=== PATIENT | male | born 1950 | race Caucasian/White ===

== ENCOUNTER 2025-04-17 02:13 | Observation (INO) | payer MEDICARE, SELFPAY ==
[2025-04-17] VITALS (8 sets, daily range): BP systolic 122–141; BP diastolic 78–87; PULSE 60–78; RESP 15–17; TEMP 36.7–37.1; O2SAT 96–100; BMI 27.3
--- NOTE | 2025-04-17 02:16 | ECG_ITS ---
APPROVED REPORT Exam: Resting ECG HR:64 bpm ECG Measurements Heart Rate 64 AXES TN 186 P 73 QRSd 90 QRS 55 QT 386 T 54 QTc 395 Conclusion SINUS RHYTHM NONSPECIFIC T-WAVE ABNORMALITY No STEMI Electronically signed by : MARCELINO KOHLER, 04/17/2025 03:56:33
--- NOTE | 2025-04-17 02:25 | CT_ITS ---
PROCEDURE INFORMATION: Exam: CT Head Without Contrast Exam date and time: 04/17/2025 3:09 AM Age: 74 years old Clinical indication: Syncope and collapse; Additional info: Syncope struck forehead TECHNIQUE: Imaging protocol: Computed tomography of the head without contrast. Radiation optimization: All CT scans at this facility use at least one of these dose optimization techniques: automated exposure control; mA and/or kV adjustment per patient size (includes targeted exams where dose is matched to clinical indication); or iterative reconstruction. COMPARISON: No relevant prior studies available. FINDINGS: Brain: There is diffuse prominence of the cerebral sulci, cisterns, and ventricles consistent with atrophy. No intra or extra-axial fluid collections are noted. No mass or mass effect is seen. Periventricular white matter hypoattenuation is seen consistent with chronic small vessel disease. Cerebral ventricles: No ventriculomegaly. Paranasal sinuses: Visualized sinuses are unremarkable. No fluid levels. Mastoid air cells: Visualized mastoid air cells are well aerated. Bones: Unremarkable. No acute fracture. Soft tissues: Unremarkable. IMPRESSION: No acute process noted.
--- NOTE | 2025-04-17 02:25 | CT_ITS ---
PROCEDURE INFORMATION: Exam: CT Cervical Spine Without Contrast Exam date and time: 04/17/2025 3:19 AM Age: 74 years old Clinical indication: Injury or trauma; Fall; Blunt trauma; Additional info: Syncope struck head TECHNIQUE: Imaging protocol: Computed tomography of the cervical spine without contrast. Radiation optimization: All CT scans at this facility use at least one of these dose optimization techniques: automated exposure control; mA and/or kV adjustment per patient size (includes targeted exams where dose is matched to clinical indication); or iterative reconstruction. COMPARISON: CT HEAD/BRAIN WO CON 04/17/2025 3:09 AM FINDINGS: Bones: No acute fracture. There is straightening of the spine. Severe degenerative disc disease noted at C3-C4, C5-C6 and C6-C7. There is diffuse mild severe facet arthropathy. No significant disc bulge or herniation. No severe spinal canal stenosis. There is prominent bony foraminal stenosis bilaterally C3-C4, on the right at C5-C6 and bilaterally at C6-C7. Lungs: Lung apices are normal. Soft tissues: Unremarkable. IMPRESSION: No acute cervical spine fracture.
--- NOTE | 2025-04-17 02:25 | CT_ITS ---
PROCEDURE INFORMATION: Exam: CT Lumbar Spine Without Contrast Exam date and time: 04/17/2025 3:19 AM Age: 74 years old Clinical indication: Injury or trauma; Fall; Blunt trauma (contusions or hematomas); Additional info: Syncope thoracolumbar ttp TECHNIQUE: Imaging protocol: Computed tomography of the lumbar spine without contrast. Radiation optimization: All CT scans at this facility use at least one of these dose optimization techniques: automated exposure control; mA and/or kV adjustment per patient size (includes targeted exams where dose is matched to clinical indication); or iterative reconstruction. COMPARISON: CT LUMBAR SPINE WO CON 04/17/2025 3:19 AM FINDINGS: Bones/joints: No acute fracture. Mild chronic degenerative changes without severe spinal stenosis. Soft tissues: Visualized paravertebral soft tissues demonstrate no acute abnormality. IMPRESSION: No acute lumbar spine fracture.
--- NOTE | 2025-04-17 02:25 | CT_ITS ---
PROCEDURE INFORMATION: Exam: CT Thoracic Spine Without Contrast Exam date and time: 04/17/2025 3:19 AM Age: 74 years old Clinical indication: Injury or trauma; Fall; Blunt trauma (contusions or hematomas); Additional info: Syncope thoracolumbar ttp TECHNIQUE: Imaging protocol: Computed tomography of the thoracic spine without contrast. Radiation optimization: All CT scans at this facility use at least one of these dose optimization techniques: automated exposure control; mA and/or kV adjustment per patient size (includes targeted exams where dose is matched to clinical indication); or iterative reconstruction. COMPARISON: 1. CT CERVICAL SPINE WO CON 04/17/2025 3:[address] LUMBAR SPINE WO CON 04/17/2025 3:19 AM FINDINGS: Bones/joints: No acute fracture. Mild chronic degenerative changes without severe spinal stenosis. Soft tissues: Visualized paravertebral soft tissues demonstrate no acute abnormality. Lymph nodes: Small calcified left hilar lymph nodes, suggestive of old granulomatous disease. Lungs: Small calcified granuloma in the left lower lobe. Visualized portions of the lungs demonstrate no acute abnormality. IMPRESSION: No acute findings.
--- NOTE | 2025-04-17 02:26 | CT_ITS ---
PROCEDURE INFORMATION: Exam: CTA Chest With Contrast Exam date and time: 04/17/2025 3:26 AM Age: 74 years old Clinical indication: Other: Unprovoked syncope TECHNIQUE: Imaging protocol: Computed tomographic angiography of the chest with contrast. Exam focused on the arteries. 3D rendering (Not supervised by radiologist): MIP and/or 3D reconstructed images were created by the technologist. Radiation optimization: All CT scans at this facility use at least one of these dose optimization techniques: automated exposure control; mA and/or kV adjustment per patient size (includes targeted exams where dose is matched to clinical indication); or iterative reconstruction. Contrast material: ISOUVE 370; Contrast volume: 70 ml; Contrast route: INTRAVENOUS (IV); COMPARISON: CT CERVICAL SPINE WO CON 04/17/2025 3:19 AM FINDINGS: Pulmonary arteries: Normal. No pulmonary emboli. Aorta: The ascending thoracic aorta is mildly dilated measuring 4.0 cm in diameter. Lungs: There is a calcified granuloma medial left lower lobe. No consolidation. No mass. Pleural spaces: Unremarkable. No pneumothorax. No pleural effusion. Heart: Unremarkable. No cardiomegaly. No pericardial effusion. Lymph nodes: There are calcified left hilar lymph nodes. Bones/joints: There are mild degenerative changes of the thoracic spine.. No acute fracture. Soft tissues: Unremarkable. IMPRESSION: 1. No acute findings. No pulmonary embolus. 2. Mildly dilated ascending thoracic aorta measuring 4.0 cm in diameter.
--- NOTE | 2025-04-17 02:27 | HMH.EDCP ---
Discharge Plan Disposition Patient Disposition: Admitted Condition: Good Clinical Impressions Clinical Impression: Chest pain, Syncope Print Language Print Language: Icelandic Discharge ED Provider: Lemuel Daniels General Chief Complaint: Chest Pain Stated Complaint: Sycopal Episode Time Seen by Provider: 04/17/25 02:24 History of Present Illness HPI narrative: 74-year-old male with a history of hyperlipidemia recently on Wegovy for the last 4 months presents to the ER for syncopal episode. Patient reports he was woken up from sleep by burning chest pain similar to heartburn but admits that it was worse than normal and somewhat different than his usual heartburn, he states he got up to go downstairs to get Tums which he took, but after he got back upstairs he stated I did not feel right and he then woke up on the floor. Patient reports he did not feel lightheaded, no tunnel vision, he had no warning or preceding symptoms that he was going to pass out. He reports he does not know what he may have struck his head on but does not take any blood thinners. He does state he has a history of back surgery and his usual low mid back pain is flared up compared to normal. He is not having any new numbness, tingling, or weakness. No current headache or dizziness. He states the heartburn type sensation that he was having earlier is now absent. He reports no history of palpitations, he states he is not having any fevers, chills, no current chest pain, no difficulty breathing, no nausea, vomiting, or diarrhea, no other complaints or concerns. Related Data Allergies Allergy/AdvReac Type Severity Reaction Status Date / Time No Known Allergies Allergy Verified 04/17/25 02:35 [facility] Disclaimer: The information contained in this section may have been updated after the patient was seen, as this information can be updated by other users. Surgical History (Updated 04/17/25 @ 02:35 by Elizabeth Spence RN) Previous back surgery Social History Smoking Status: Never smoker alcohol intake: never current occupational status: other Travel in the last 8 weeks?: None ROS Obtained: Yes Systems reviewed as appropriate & no additional complaints except as documented per HPI Physical Exam General General appearance: alert and in no apparent distress Head Head exam: normocephalic and other (Small superficial laceration above the right eyebrow is not gaping, hemostatic.) Eye Eye exam: Present PERRL and EOMI ENT ENT exam: Present mucous membranes moist Neck Neck exam: Present normal inspection and full ROM; Absent tenderness Chest Chest inspection: Present symmetric chest wall rise; Absent tenderness Respiratory Respiratory exam: Present normal lung sounds bilaterally; Absent respiratory distress, wheezes or stridor Cardiovascular Cardiovascular exam: Present regular rate and normal rhythm Abdominal Exam Abdominal exam: Present soft; Absent distention, tenderness, guarding or rebound Extremities Exam Extremities exam: Present full ROM; Absent tenderness, joint swelling or calf tenderness Back Exam Back exam: Present tenderness (Thoracolumbar junction midline with no deformity or step-off); Absent CVA tenderness (R) or CVA tenderness (L) Neurological Exam Neurological exam: Present alert and oriented X3; Absent motor sensory deficit Psychiatric Psychiatric exam: Present normal affect and normal mood Skin Skin exam: Present warm and dry HEART Score HEART Score HEART Score assessment performed?: Yes History (anamnesis): Slightly suspicious ECG: Non-specific disturbance Age: >65 years Risk factors: 1-2 risk factors Troponin: </= normal limit HEART Score: 4 Critical Care Critical Care Time Critical Care Time: No Medical Decision Making Dennys Inquiry Pt receiving controlled substance: No Vital Signs Vital Signs: 04/17/25 02:16 04/17/25 02:22 04/17/25 02:30 Temperature 98.7 F Temperature Source Oral Pulse Rate 65 78 Pulse Rate [Left] 75 Respiratory Rate 16 17 Blood Pressure 122/78 140/79 Blood Pressure [Right Arm] 122/78 Blood Pressure Mean [Right Arm] 92 Blood Pressure Source [Right Arm] Automatic Cuff Blood Pressure Position [Right Arm] Sitting 02 Sat by Pulse Oximetry 96 96 98 Oxygen Delivery Method Room Air Room Air 04/17/25 04:09 Temperature Temperature Source Pulse Rate 75 Pulse Rate [Left] Respiratory Rate 17 Blood Pressure 141/87 H Blood Pressure [Right Arm] Blood Pressure Mean [Right Arm] Blood Pressure Source [Right Arm] Blood Pressure Position [Right Arm] 02 Sat by Pulse Oximetry 96 Oxygen Delivery Method Room Air Lab Data Labs: Lab Results 04/17/25 01:37: WBC 6.6, RBC 4.31 L, Hgb 13.4 L, Hct 39.0 L, MCV 90.5, MCH 31.1, MCHC 34.4, RDW 13.8, Plt Count 207, MPV 10.8 H, Neut % (Auto) 59.8, Lymph % (Auto) 29.9, [place] % (Auto) 7.5, Eos % (Auto) 2.3, Baso % (Auto) 0.3, Neut # (Auto) 3.9, Lymph # (Auto) 2.0, [place] # (Auto) 0.5, Eos # (Auto) 0.2, Baso # (Auto) 0.0, PT 10.2, INR 0.91, Sodium 142, Potassium 3.1 L, Chloride 103, Carbon Dioxide 30, Anion Gap 12.1, BUN 15, Creatinine 1.00, Estimated Creat Clear 91, Estimated GFR 73, Est GFR ( Amer) 89, Glucose 105 H, Calcium 8.9, Total Bilirubin 0.6, AST 35, ALT 16, Alkaline Phosphatase 59, Troponin I < 0.01, NT-Pro-B Natriuret Pep 59.7, Total Protein 6.8, Albumin 4.2, Globulin 2.6, Albumin/Globulin Ratio 1.6 04/17/25 03:43: VBG pH 7.35, VBG pCO2 52.2 H, VBG pO2 43.2 H, VBG HCO3 28.0, VBG Total CO2 29.6 H, VBG O2 Saturation 78.7 H, VBG Base Excess 2.3, VBG Lactic Acid 1.3 04/17/25 01:37 04/17/25 01:37 Response Orders (Tests/Meds): ED MEDICATIONS Generic Name Dose Route Start Last Admin Trade Name Freq PRN Reason Stop Dose Admin Nitroglycerin 0.4 mg 04/17/25 02:25 Nitroglycerin 0.4mg Sl Tablet SL 04/18/25 02:25 Q5MINP PRN Chest Pain Sodium Chloride 10 ml 04/17/25 03:35 04/17/25 03:36 Sodium Chloride 0.9% 10ml Syr (Rad Only) IV 05/17/25 03:34 10 ml NEEDED PRN Administration Maintain IV Site Discontinued Medications Generic Name Dose Route Start Last Admin Trade Name Freq PRN Reason Stop Dose Admin Aspirin 324 mg 04/17/25 02:25 04/17/25 02:39 Aspirin 81mg Chewable Tablet PO 04/17/25 02:26 324 mg ONCE ONE Administration Iopamidol 70 ml 04/17/25 03:35 04/17/25 03:36 Iopamidol-370 (76%);100ml Bottle IV 04/17/25 03:36 70 ml ONCE ONE Administration Sodium Chloride 40 ml 04/17/25 03:35 04/17/25 03:35 0.9 % Sodium Chloride 50 Ml Vial IV 04/17/25 03:36 40 ml ONCE ONE Administration ORDERS Category Date Time Status CT angio chest PE protocol Stat Cat Scan 04/17/25 02:[address] cervical spine wo con Stat Cat Scan 04/17/25 02:[address] head/brain wo con Stat Cat Scan 04/17/25 02:[address] lumbar spine wo con Stat Cat Scan 04/17/25 02:[address] thoracic spine wo con Stat Cat Scan 04/17/25 02:25 Completed Complete Blood Count Auto Diff Stat Lab 04/17/25 01:37 Completed Comprehensive Metabolic Panel Stat Lab 04/17/25 01:37 Completed NT Pro Brain Natriuretic Pep. Stat Lab 04/17/25 01:37 Completed Prothrombin Time INR Stat Lab 04/17/25 01:37 Completed Troponin I Q3H Lab 04/17/25 05:30 Ordered Troponin I Q3H Lab 04/17/25 08:30 Ordered Troponin I Stat Lab 04/17/25 01:37 Completed VBG [Venous Blood Gas] Stat RT 04/17/25 03:43 Completed MDM Narrative Medical Decision Narrative: In summary, this 74-year-old male with comorbidities described in the HPI presents to the emergency department today with syncope in the setting of preceding chest pain. On initial evaluation patient is hemodynamically stable, afebrile, GCS 15, no neurologic deficits, patient has small superficial laceration above the right eyebrow which is hemostatic, not gaping, does not require any repair. No tenderness of the neck, normal range of motion, no neurologic deficits, patient has thoracolumbar junction discomfort with palpation in the midline, reports he has previous back surgery in this area. No new numbness, tingling, or weakness in the lower extremities. No saddle anesthesia, bowel or bladder incontinence. Cardiopulmonary exam benign, abdominal exam benign. Differential diagnosis includes but is not limited to ACS, PE, arrhythmia, electrolyte abnormality, intracranial bleed, spine injury, among others. Based on these concerns, I ordered hematologic and serum labs, cardiac workup, CT imaging including PE scan of the chest. I am concerned that this patient sounds like he had relatively unprovoked syncope as he just suddenly woke up on the floor with no preceding symptoms aside from chest pain which is increasingly concerning. ECG personally interpreted demonstrates sinus rhythm, rate 64, normal NC and QTc, no STEMI. Patient received aspirin for treatment. Labs personally reviewed demonstrate no leukocytosis, mild anemia is nonactionable at this time, normal platelets, PT/INR normal, CMP with trace hypokalemia being repleted orally, initial troponin undetectably low less than 0.01, serial troponins pending. CT head personally interpreted does not demonstrate acute intracranial abnormality such as bleed, mass, or midline shift, see radiology read for final interpretation. CTA PE personally interpreted does not demonstrate acute intrathoracic abnormality, no large PE, see radiology read for final interpretation. I also personally interpreted CTs of the spine and do not appreciate acute injury, see radiology reads for full interpretations. On reassessment patient remains hemodynamically stable, well-appearing. At this time I believe he should be admitted to the hospital for further evaluation of chest pain and otherwise unprovoked syncope. Patient is agreeable to this as is his family at bedside. I discussed this case with the hospitalist including his results so far, reassuring workup but his concerning story leading up to his syncopal event. Patient was graciously accepted for admission and admitted in stable condition.
[2025-04-17] MEDS: ASPIRIN 81MG CHEWABLE TABLET 324 MG PO (02:39)
--- NOTE | 2025-04-17 02:44 | PC.NURSE ---
RT notified of VBG in lab
[2025-04-17 02:45] LABS: Hematocrit 39.0 % (42.0-52.0); Hemoglobin 13.4 g/dL (14.1-18.0); Immature Granulocytes % 0.2 %; Mean Corpuscular HGB Conc 34.4 g/dL (31.8-35.4); Mean Corpuscular Hemoglobin 31.1 pg (27.0-31.2); Mean Corpuscular Volume 90.5 fl (80-94); Nucleated Red Blood Cells % 0 %; Platelet Count 207 K/mm3 (142-424); Red Blood Count 4.31 M/mm3 (4.60-6.20); Red Cell Distribution Width-SD 45.9 fL; White Blood Count 6.6 K/mm3 (4.8-10.8)
[2025-04-17 02:48] LABS: Albumin Level 4.2 g/dl (3.5-5.0); Chloride 103 mmol/L (98-107); Potassium 3.1 mmoL/L (3.5-5.1); Sodium 142 mmol/L (136-145)
[2025-04-17 02:51] LABS: Alanine Aminotransferase 16 U/L (12-78); Albumin/Globulin Ratio 1.6 (1.1-1.8); Alkaline Phosphatase 59 U/L (38-126); Anion Gap 12.1 mEq/L (5-15); Aspartate Amino Transferase 35 U/L (17-59); Bilirubin,Total 0.6 mg/dl (0.2-1.3); Blood Urea Nitrogen 15 mg/dl (9-20); Calcium 8.9 mg/dl (8.4-10.2); Carbon Dioxide 30 mmol/L (22.0-30.0); Creatinine Clearance Estimated 91 mL/min (50-200); Creatinine,Serum 1.00 mg/dl (0.66-1.25); Estimated Glomerular Filt Rate 73 ml/min (>60); GFR (African American) 89 ML/MIN (>60); Globulin 2.6 g/dL (1.3-3.2); Glucose 105 mg/dl (74-100); INR 0.91 (0.9-1.1); Prothrombin Time 10.2 seconds (10.1-12.5); Total Protein,Serum 6.8 g/dl (6.3-8.2)
[2025-04-17 03:00] LABS: NT Pro Brain Natriuretic Pep. 59.7 pg/mL (0-125)
[2025-04-17 03:04] LABS: Troponin I < 0.01 ng/ml (0.00-0.034)
[2025-04-17] MEDS: 0.9 % SODIUM CHLORIDE 50 ML VIAL 40 ML IV (03:35)
[2025-04-17] MEDS: SODIUM CHLORIDE 0.9% 10ML SYR (RAD ONLY) 10 ML IV (03:36)
[2025-04-17] MEDS: IOPAMIDOL-370 (76%);100ML BOTTLE 70 ML IV (03:36)
[2025-04-17 03:55] LABS: Lactate Venous 1.3 mmol/L (0.4-2.0); VBG HCO3 28.0 mmol/L (23-30); VBG PCO2 52.2 mmol/L (35-51); VBG PH 7.35 mmol/L (7.31-7.41); VBG PO2 43.2 mmol/L (28-40)
[2025-04-17] MEDS: POTASSIUM CHLORIDE 20MEQ TAB 40 MEQ PO (04:15)
--- NOTE | 2025-04-17 04:18 | P.HP_ITS ---
History of Present Illness *Admission Date: 04/17/25 *Reason for visit:: syncope *History of present illness: Patient is a 74-year-old male with past medical history of hyperlipidemia who presents to the hospital due to an episode of syncope. According to the patient his syncope was unprovoked, it was not accompanied by lightheadedness, he denied chest pain shortness of breath nausea vomiting diarrhea constipation dysuria fever/chills at time of my evaluation. According to the patient he has been recently started on Wegovy for the past 4 months, he denies previous similar episodes of syncope. [facility] Disclaimer: The information contained in this section may have been updated after the patient was seen, as this information can be updated by other users. Surgical History Previous back surgery Social History (Updated 04/17/25 @ 05:59 by Marilin Funes RN) Smoking Status: Current every day smoker alcohol intake: never current occupational status: other Travel in the last 8 weeks?: None Contact w/someone who lives/traveled outside [place] past 30 days?: No Exposure to someone with infectious disease in past 14 days?: No Review of Systems Review of Systems Review of systems:: pertinent systems reviewed and negative unless documented below Meds Home Medications and Allergies Home Medications ?Medication ?Instructions ?Recorded ?Confirmed ?Type rosuvastatin 20 mg tablet 20 mg PO DAILY 04/17/2503/30 History semaglutide (weight loss) 1.7 1.7 mg SQ WEEKLY 5 04/17/25 History mg/0.75 mL subcutaneous pen injector (Wegovy) New Prescriptions to Start Prescriptions: Allergies Allergy/AdvReac Type Severity Reaction Status Date / Time No Known Allergies Allergy Verified 04/17/25 02:35 Exam Data for Last 24 hours Vital signs and Labs for Last 24 Hours: Temp Pulse Resp BP Pulse Ox O2 Del Method 98.7 F 75 17 141/87 H 96 Room Air 04/17/25 02:22 04/17/25 04:09 04/17/25 04:09 04/17/25 04:09 04/17/25 04:09 04/17/25 04:09 Laboratory Results - last 24 hr 04/17/25 01:37: WBC 6.6, RBC 4.31 L, Hgb 13.4 L, Hct 39.0 L, MCV 90.5, MCH 31.1, MCHC 34.4, RDW 13.8, Plt Count 207, MPV 10.8 H, Neut % (Auto) 59.8, Lymph % (Auto) 29.9, [place] % (Auto) 7.5, Eos % (Auto) 2.3, Baso % (Auto) 0.3, Neut # (Auto) 3.9, Lymph # (Auto) 2.0, [place] # (Auto) 0.5, Eos # (Auto) 0.2, Baso # (Auto) 0.0, PT 10.2, INR 0.91, Sodium 142, Potassium 3.1 L, Chloride 103, Carbon Dioxide 30, Anion Gap 12.1, BUN 15, Creatinine 1.00, Estimated Creat Clear 91, Estimated GFR 73, Est GFR ( Amer) 89, Glucose 105 H, Calcium 8.9, Total Bilirubin 0.6, AST 35, ALT 16, Alkaline Phosphatase 59, Troponin I < 0.01, NT-Pro-B Natriuret Pep 59.7, Total Protein 6.8, Albumin 4.2, Globulin 2.6, Albumin/Globulin Ratio 1.6 04/17/25 03:43: VBG pH 7.35, VBG pCO2 52.2 H, VBG pO2 43.2 H, VBG HCO3 28.0, VBG Total CO2 29.6 H, VBG O2 Saturation 78.7 H, VBG Base Excess 2.3, VBG Lactic Acid 1.3 I & O for Last 24 hours: Intake & Output 04/14/25 04/15/25 04/16/25 04/17/25 23:59 23:59 23:59 23:59 Weight 96.615 kg Constitutional Constitutional: no acute distress *Routine HEENT Exam Head: Present normocephalic Eye: Present EOMI and PERRL ENT: Present mucous membranes moist *Routine Neck Exam Neck: Present supple; Absent lymphadenopathy *Routine Respiratory Exam Respiratory: Present CTA bilaterally *Routine Cardiovascular Exam Cardiovascular: Present RRR *Routine Abdominal Exam Abdominal: Present soft and normoactive bowel sounds; Absent tenderness *Routine Rectal Exam Rectal:: deferred *Routine Genitalia Exam Genitalia:: deferred *Routine Extremities Exam Extremities: Absent cyanosis, clubbing or edema *Routine Skin Exam Skin: Present warm; Absent rash *Routine Neurological Exam Neurological: Present alert and oriented X3 Assessment and Plan *Assessment and plan (1) Syncope: Status: Acute Category: Medical Code(s): R55 - Syncope and collapse (2) Hypokalemia: Status: Acute Category: Medical Code(s): E87.6 - Hypokalemia Plan Patient is a 74-year-old male with past medical history of hyperlipidemia who presents to the hospital due to an episode of syncope. According to the patient his syncope was unprovoked, it was not accompanied by lightheadedness, he denied chest pain shortness of breath nausea vomiting diarrhea constipation dysuria fever/chills at time of my evaluation. According to the patient he has been recently started on Wegovy for the past 4 months, he denies previous similar episodes of syncope. 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
[2025-04-17 07:11] LABS: Troponin I < 0.01 ng/ml (0.00-0.034)
[2025-04-17 07:21] LABS: Hematocrit 38.4 % (42.0-52.0); Hemoglobin 12.7 g/dL (14.1-18.0); Immature Granulocytes % 0.4 %; Mean Corpuscular HGB Conc 33.1 g/dL (31.8-35.4); Mean Corpuscular Hemoglobin 30.2 pg (27.0-31.2); Mean Corpuscular Volume 91.2 fl (80-94); Nucleated Red Blood Cells % 0 %; Platelet Count 203 K/mm3 (142-424); Red Blood Count 4.21 M/mm3 (4.60-6.20); Red Cell Distribution Width-SD 46.4 fL; White Blood Count 10.3 K/mm3 (4.8-10.8)
[2025-04-17 08:11] LABS: Chloride 104 mmol/L (98-107); Potassium 3.9 mmoL/L (3.5-5.1); Sodium 141 mmol/L (136-145)
[2025-04-17 08:14] LABS: Anion Gap 12.9 mEq/L (5-15); Blood Urea Nitrogen 14 mg/dl (9-20); Calcium 8.9 mg/dl (8.4-10.2); Carbon Dioxide 28 mmol/L (22.0-30.0); Creatinine Clearance Estimated 91 mL/min (50-200); Creatinine,Serum 0.90 mg/dl (0.66-1.25); Estimated Glomerular Filt Rate 83 ml/min (>60); GFR (African American) 100 ML/MIN (>60); Glucose 98 mg/dl (74-100)
--- NOTE | 2025-04-17 08:28 | PC.NURSE ---
Pt. is alert and orientated x 4. Pt. is on room air. Pt. got up in the night and had a syncopal episde in the bathroom. Pt's found him on the floor. after hearing a loud banc. Pt. was diaphoretic and had some chest pressure . the Chest pressure has gone away. Pt. c/o low back pain. NO swelling or bruising noted to site that is sore, Pt. resting quietly with no c/o's Personal items and call davidson in reach. bed in low and locked position. safety measures in place.
[2025-04-17 08:33] LABS: Troponin I < 0.01 ng/ml (0.00-0.034)
--- NOTE | 2025-04-17 09:27 | HMH.PHAINT1 ---
Pharmacy Intervention Comments: MEDICATION RECONCILIATION COMPLETED ON PATIENT USING EXTERNAL FILL HISTORY FROM PHARMACY. -LISSETTE STALEY, JELENAD
--- NOTE | 2025-04-17 11:21 | EXP.DC.SUM ---
General Admission date:: 04/17/25 Discharge date: 04/17/25 HPI HPI HPI: Patient is a 74-year-old male with past medical history of hyperlipidemia who presents to the hospital due to an episode of syncope. According to the patient his syncope was unprovoked, it was not accompanied by lightheadedness, he denied chest pain shortness of breath nausea vomiting diarrhea constipation dysuria fever/chills at time of my evaluation. According to the patient he has been recently started on Wegovy for the past 4 months, he denies previous similar episodes of syncope. Hospital Course Hospital Course Hospital Course: Mr. Ba is a 74-year-old male with history of hyperlipidemia who was started on a GLP-1 within the past 4 to 6 months for weight loss and hypertension. He successfully lost over 20 pounds. Presented to the ER however after an episode of syncope. According to the patient his syncope was unprovoked. He had some word finding difficulty after his episode. Denied chest pain, nausea, vomiting or shortness of breath with the episode. On arrival to the ER, workup was relatively benign with normal labs except for potassium of 3.1. CT imaging did not show any acute abnormalities such as large vessel occlusion or ischemic changes. EKG reviewed and shows sinus rhythm. No ST elevations or depressions. Serial troponins x 3 were less than 0.01. By morning, patient feeling better with no further symptoms. Feels back to his baseline. Has no residual deficits. No focal neurologic deficits on exam. No word finding difficulty by morning. Family requesting MRI. Unfortunately we are able to perform MRI on the weekends. In light of patient's normal neuroexam, stable vitals, resolution of hypokalemia, and unremarkable CTs of head along with CT PE negative for PE, at this time I have low suspicion for stroke or [place]. Episode most consistent with vasovagal event. I do think the patient would benefit from an echo and stress test. Would also benefit from outpatient MRI. Discussed deferring these to his PCP or following with cardiology. Informed patient he can walk-in to cardiology clinic on Saturday morning and they will initiate further workup. After shared decision making with family and patient, decision made to discharge home. Counseled on symptoms necessitating reevaluation and urged to return the ER if he has another syncopal event, has focal neurologic deficits, chest pain. Only abnormality noted on imaging was mild dilation of the ascending thoracic aorta. He was informed of these results. Would benefit from serial monitoring and repeat imaging in 6 to 12 months to monitor stability. CTA chest performed in the emergency department-negative for PE, did show mildly dilated ascending thoracic aorta, patient was informed of the results; ascending aorta measuring 4.0 cm Encourage patient to hold his Wegovy. At this time I clinical suspicion is his weight loss has led to improvement in blood pressure control and decreased fluid intake leading to vasovagal syncope. Exam Data for Last 24 hours Vital signs and Labs for Last 24 Hours: Temp Pulse Resp BP Pulse Ox O2 Del Method 98.1 F 78 16 124/81 100 Room Air 04/17/25 08:00 04/17/25 08:00 04/17/25 08:00 04/17/25 08:00 04/17/25 08:00 04/17/25 10:39 Laboratory Results - last 24 hr 04/17/25 01:37: WBC 6.6, RBC 4.31 L, Hgb 13.4 L, Hct 39.0 L, MCV 90.5, MCH 31.1, MCHC 34.4, RDW 13.8, Plt Count 207, MPV 10.8 H, Neut % (Auto) 59.8, Lymph % (Auto) 29.9, Whitfield % (Auto) 7.5, Eos % (Auto) 2.3, Baso % (Auto) 0.3, Neut # (Auto) 3.9, Lymph # (Auto) 2.0, Whitfield # (Auto) 0.5, Eos # (Auto) 0.2, Baso # (Auto) 0.0, PT 10.2, INR 0.91, Sodium 142, Potassium 3.1 L, Chloride 103, Carbon Dioxide 30, Anion Gap 12.1, BUN 15, Creatinine 1.00, Estimated Creat Clear 91, Estimated GFR 73, Est GFR ( Amer) 89, Glucose 105 H, Calcium 8.9, Total Bilirubin 0.6, AST 35, ALT 16, Alkaline Phosphatase 59, Troponin I < 0.01, NT-Pro-B Natriuret Pep 59.7, Total Protein 6.8, Albumin 4.2, Globulin 2.6, Albumin/Globulin Ratio 1.6 04/17/25 03:43: VBG pH 7.35, VBG pCO2 52.2 H, VBG pO2 43.2 H, VBG HCO3 28.0, VBG Total CO2 29.6 H, VBG O2 Saturation 78.7 H, VBG Base Excess 2.3, VBG Lactic Acid 1.3 04/17/25 04:30: Troponin I < 0.01 04/17/25 07:15: WBC 10.3 D, RBC 4.21 L, Hgb 12.7 L, Hct 38.4 L, MCV 91.2, MCH 30.2, MCHC 33.1, RDW 13.8, Plt Count 203, MPV 11.0 H, Neut % (Auto) 82.0 H, Lymph % (Auto) 9.6 L, Whitfield % (Auto) 6.9, Eos % (Auto) 0.7, Baso % (Auto) 0.4, Neut # (Auto) 8.5 H, Lymph # (Auto) 1.0, Whitfield # (Auto) 0.7, Eos # (Auto) 0.1, Baso # (Auto) 0.0, Sodium 141, Potassium 3.9 D, Chloride 104, Carbon Dioxide 28, Anion Gap 12.9, BUN 14, Creatinine 0.90, Estimated Creat Clear 91, Estimated GFR 83, Est GFR ( Amer) 100, Glucose 98, Calcium 8.9, Troponin I < 0.01 I & O for Last 24 hours: Intake & Output 04/14/25 04/15/25 04/16/25 04/17/25 23:59 23:59 23:59 23:59 Intake Total 360 / 360 Balance 360 / 360 Weight 96.615 kg Constitutional Constitutional: no acute distress, average body habitus and cooperative *Routine HEENT Exam Head: Present normocephalic Eye: Present EOMI and PERRL ENT: Present mucous membranes moist *Routine Neck Exam Neck: Absent full ROM or lymphadenopathy Comments: Neck stiff chronically, has his baseline level of mobility Routine Chest/Breast/Axilla Exam Chest wall: Absent tenderness *Routine Respiratory Exam Respiratory: Present CTA bilaterally; Absent rhonchi, wheezes or crackles *Routine Cardiovascular Exam Cardiovascular: Present RRR *Routine Abdominal Exam Abdominal: Present soft and normoactive bowel sounds; Absent tenderness *Routine Rectal Exam Patient deferred: visual exam *Routine Exam Patient deferred: penile exam *Routine Extremities Exam Extremities: Present full ROM; Absent cyanosis, clubbing or edema Routine Back/Spine/Pelvis Exam Back/Spine: Absent full ROM (Stiff, tender in lumbar region) *Routine Skin Exam Skin: Present intact and warm; Absent rash *Routine Neurological Exam Neurological: Present alert, oriented X3, CN II-XII intact, normal reflexes, moving all extremities, vision grossly intact and normal speech; Absent sensory deficit, motor deficit, altered mental status, abnormal gait, hemineglect, facial asymmetry or tremors Results Data Completed and Pending Labs on day of discharge: Labs from last 24 hours 04/17/25 04/17/25 04/17/25 07:15 04:30 03:43 WBC 10.3 D RBC 4.21 L Hgb 12.7 L Hct 38.4 L MCV 91.2 MCH 30.2 MCHC 33.1 RDW 13.8 Plt Count 203 MPV 11.0 H Neut % (Auto) 82.0 H Lymph % (Auto) 9.6 L Whitfield % (Auto) 6.9 Eos % (Auto) 0.7 Baso % (Auto) 0.4 Neut # (Auto) 8.5 H Lymph # (Auto) 1.0 Whitfield # (Auto) 0.7 Eos # (Auto) 0.1 Baso # (Auto) 0.0 PT INR VBG pH 7.35 VBG pCO2 52.2 H VBG pO2 43.2 H VBG HCO3 28.0 VBG Total CO2 29.6 H VBG O2 Saturation 78.7 H VBG Base Excess 2.3 VBG Lactic Acid 1.3 Sodium 141 Potassium 3.9 D Chloride 104 Carbon Dioxide 28 Anion Gap 12.9 BUN 14 Creatinine 0.90 Estimated Creat Clear 91 Estimated GFR 83 Est GFR ( Amer) 100 Glucose 98 Calcium 8.9 Total Bilirubin AST ALT Alkaline Phosphatase Troponin I < 0.01 < 0.01 NT-Pro-B Natriuret Pep Total Protein Albumin Globulin Albumin/Globulin Ratio 04/17/25 01:37 WBC 6.6 RBC 4.31 L Hgb 13.4 L Hct 39.0 L MCV 90.5 MCH 31.1 MCHC 34.4 RDW 13.8 Plt Count 207 MPV 10.8 H Neut % (Auto) 59.8 Lymph % (Auto) 29.9 Whitfield % (Auto) 7.5 Eos % (Auto) 2.3 Baso % (Auto) 0.3 Neut # (Auto) 3.9 Lymph # (Auto) 2.0 Whitfield # (Auto) 0.5 Eos # (Auto) 0.2 Baso # (Auto) 0.0 PT 10.2 INR 0.91 VBG pH VBG pCO2 VBG pO2 VBG HCO3 VBG Total CO2 VBG O2 Saturation VBG Base Excess VBG Lactic Acid Sodium 142 Potassium 3.1 L Chloride 103 Carbon Dioxide 30 Anion Gap 12.1 BUN 15 Creatinine 1.00 Estimated Creat Clear 91 Estimated GFR 73 Est GFR ( Amer) 89 Glucose 105 H Calcium 8.9 Total Bilirubin 0.6 AST 35 ALT 16 Alkaline Phosphatase 59 Troponin I < 0.01 NT-Pro-B Natriuret Pep 59.7 Total Protein 6.8 Albumin 4.2 Globulin 2.6 Albumin/Globulin Ratio 1.6 DS: Diagnosis Discharge Diagnosis (1) Syncope: Status: Acute Code(s): R55 - Syncope and collapse (2) Hypokalemia: Status: Acute Code(s): E87.6 - Hypokalemia (3) Ascending aorta dilation: Status: Acute Code(s): I77.810 - Thoracic aortic ectasia (4) HLD (hyperlipidemia): Status: Chronic Code(s): E78.5 - Hyperlipidemia, unspecified Meds Home Medications and Allergies Home Medications ?Medication ?Instructions ?Recorded ?Confirmed ?Type papaverine 150 mg-phentolamin 5 0 ml intra-cavernosal DIRECTED 04/17/25 04/17/25 History mg-alprost 50 mcg intracavernosal soln rosuvastatin 20 mg tablet 20 mg PO DAILY 04/17/25 04/17/25 History semaglutide (weight loss) 1.7 1.7 mg SQ WEEKLY 04/17/25 04/17/25 History mg/0.75 mL subcutaneous pen injector (Wegovy) Held on 04/17/25. Instructions: Hold until follow-up with PCP and discussion about continuing versus dose adjustment New Prescriptions to Start Prescriptions: Allergies Allergy/AdvReac Type Severity Reaction Status Date / Time No Known Allergies Allergy Verified 04/17/25 02:35 Discharge Plan Disposition Patient Disposition: Home, Self-Care Condition: Good Follow up Plan Follow up with: Allen Mccord MD [Primary Care Provider, Medical] - See instructions Referral Note: Call office for follow up appointment Gabe Anderson MD [Staff Physician, Cardiology] - Enter time for follow up Referral Note: Office will call for follow up appointment Prescriptions/Medication Reconciliation: Continued rosuvastatin 20 mg tablet 20 mg PO DAILY [id number] 150 mg-5 mg- 50 mcg Recon Soln 0 ml INTRA-CAVERNOSAL DIRECTED Held Wegovy 1.7 mg/0.75 mL pen injector 1.7 mg SQ WEEKLY Hold Instructions: Hold until follow-up with PCP and discussion about continuing versus dose adjustment Problem Reconciliation Problems Reviewed?: Yes Patient Discharge Instructions ACTIVITY: Continue current activity, Limited activity and No heavy lifting DIET: continue same diet Patient Instructions: DI for Syncope in Adults (Fainting), DI for Hypokalemia, DI for Chest Pain Print Language: Irish Providers Primary Care Provider: Allen Mccord Admit Provider: Bruce Brooks Attending Provider: Bruce Brooks
--- NOTE | 2025-04-19 10:18 | SW/DCPLANNER ---
Spoke with patient on the phone. Patient stated that he is doing well. Patient stated that he is aware of his upcoming appointments. Patient stated that he was able to get his new medicine picked up. Patient stated that he has no concerns or questions at this time. Damon Atkinson
== END 2025-04-17 11:54 | disposition home or self-care (01) ==
LOC: ER 04:31 → 2ND 04:34
PROVIDERS: Internal Medicine; Admitting Provider Internal Medicine Adolescent Medicine; Emergency Provider Emergency Medicine; PCP Family Medicine; Visit Provider Internal Medicine Adolescent Medicine
DX: R55 Syncope and collapse (principal); E87.6 Hypokalemia; I77.810 Thoracic aortic ectasia; E78.5 Hyperlipidemia, unspecified; I10 Essential (primary) hypertension; F17.200 Nicotine dependence, unspecified, uncomplicated; Z79.899 Other long term (current) drug therapy
CPT/HCPCS: 36415; 70450; 71275; 72125; 72128; 72131; 80048; 80053; 82803; 83880; 84484; 85025; 85610; 93005; 99285; G0378; Q9967

== ENCOUNTER 2025-04-19 11:42 | Outpatient (CLI) | payer MEDICARE, SELFPAY ==
--- OUTSIDE RECORDS SUMMARY | 2015-05-21 08:00 | XMS_ITS | Encounter Summary ---
Author Organization [place] [address] Care Team Providers Care Front Desk Person Name Role Phone Lai Rosa MD Primary Care Provider Un available Encounter Details Date Type Department Care Team (Latest Contact Info) Description 05/21/2015 8:00 AM EDT Hospital Encounter GRT XRAY [address] [place], [place] [phone] Lai Rosa MD Left without seen Social [...] Score 0 11/02/2024 8:34 AM EDT Shaun Mcacll RMA * Question Answer Date of Assessment [...] 09/21/2024 7:38 PM Alexei Godfrey RN * [place] Suicide Severity Rating Scale (Q shift for [...] Care Team (Late st Contact Info) Description 04/20/2025 7:30 AM EDT Office Visit [facility] [address] [place] [address] Allen Mccord MD [address] [place] [address] documented as of this encounter Goals Goal Patient Goal Type Associated Problems Recent Progress Patient-Stated? Author Maintain a healthy diet, exercise regularly and maintain an ideal body weight General No Camila Purclel LPN documented as of this encounter Visit Diagnoses Not on filedocumented in this encounter Additional Health Concerns Infection Onset Date Last Indicated Resolved Time COVID-19 07/25/2022 07/25/2022 08/14/2022 10:1 2 PM EST COVID-19 07/17/2023 07/17/2023 08/06/2023 10:1 2 PM EST documented as of this encounter Care Teams Front Desk Person Relationship Specialty Start Date End Date Lai Rosa MD PCP - General Family Medicine 02/20/14 12/26/20 documented as of this encounter
--- OUTSIDE RECORDS SUMMARY | 2025-03-09 07:50 | XMS_ITS | Encounter Summary ---
Author Organization [place] [address] Care Team Providers Care Experimental Plastics Fabricator Name Role Phone Yuan Cosme MD Primary Care Provider [phone] Reason for Visit * Reason Comments Hyperlipidemia Encounter Details Date Type Department Care Team (Latest Contact Info) Description 03/09/2025 7:50 AM EDT [facility] [address] [place] [address] Allen Collins MD [address] [place] [address] Hyperlipidemia, unspecified hyperlipidemia type (Primary [...] Description 04/20/2025 7:30 AM EDT Office Visit [facility] [address] [place] [address] Allen Collins MD [address] [place] [address] Scheduled Orders Name Type Priority Associated Diagnoses [...] mL/min/1.7 3 m2 03/09/2025 3:31 PM EDT [facility] Comment:Estimated GFR was ca lculated using the CKD-EPIcr (2020) equation refit without race. The equation is recommended by the National Kidney Foundation - [place] [employer] of Nephrology Task Force. Blood VENOUS BLOOD / Unknown Venipuncture / Unknown 03/09/2025 8:01 AM EDT 03/09/2025 8:01 AM EDT Allen Collins MD CHEMISTRY ORDERABLES Fin al Result [facility] [address] [facility] , [place] [address] * LIPID SCREEN (03/09/2025 8:01 AM EDT) Cholesterol 144 <200 mg/dL 03/09/2025 3:31 PM EDT [facility] Comment: < 200 Desirable 200 - 239 Borderline High >= 240 High Triglyceride 43 <150 mg/dL 03/09/2025 3:31 PM EDT [facility] Comment: < 150 Normal 150 - 199 Borderline High 200 - 499 High >= 500 Very High HDL 60 >=40 mg/dL 03/09/2025 3:31 PM EDT [facility] Comment: > 60 Optimal 40 - 60 Acceptable < 40 Low LDL Calculated 74 <100 mg/dL 03/09/2025 3:31 PM EDT [facility] Comment: < 100 Optimal 100 - 129 Near or above optimal 130 - 159 Borderline High 160 - 189 High >= 190 Very High The National Institutes of Health (NIH) equation is used for all lipid panels that report calculated LDL (LDL-C). Non-HDL-C Calculated 84 <=129 mg/dL 03/09/2025 3:31 PM EDT [facility] Comment: <130 Desirable 130-159 Above Desirable 160-189 Borderline High 190-219 High >= 220 Very High Fasting Specimen? Yes None 025 3:31 PM EDT [facility] Blood VENOUS BLOOD / Unknown Venipuncture / Unknown 03/09/2025 8:01 AM EDT 03/09/2025 8:01 AM EDT Allen Collins MD CHEMISTRY ORDERABLES Fin al Result Performing Organization Address City/[facility]/ZIP Co de Phone Number [facility] [address] [facility] , [place] [address] documented in this encounter Visit Diagnoses Diagnosis [...] documented as of this encounter Care Teams Experimental Plastics Fabricator Relationship Specialty Start Date End Date [place] [place] [id number] PCP - General Internal Medicine 12/27/20 documented as of this encounter
--- OUTSIDE RECORDS SUMMARY | 2025-03-09 08:00 | XMS_ITS | Encounter Summary ---
Author Organization [place] [address] Care Team Providers Care Outdoor Landscape Architect Name Role Phone Yuan Cosme MD Primary Care Provider [phone] Encounter Details Date Type Department Care Team (Latest Contact Info) Description 03/09/2025 8:00 AM EDT - 03/09/2025 11:59 PM EDT Hospital Encounter [facility] [address] [place] [address] Hyperlipidemia, unspecified hyperlipidemia type Discharge Disposition: Home or Self Care Social History Tobacco Use Types Packs/Day Years [...] on file documented as of this encounter Functional Status * Is the [...] of Assessment Author No 11/02/2024 8:34 AM EDShaun Cruz RMA * Because of a physical, mental [...] EDShaun Cruz RMA documented in this encounter Medications at Time of Discharge papaverine-phentola min-alprost (TRI-MIX, [id number] 1,) 150 mg-5 mg- 50 mcg ICav Recon SolnIndications:Pro state cancer (HCC) 0.2-0.5 mL by Intracavernosal route. 4 rosuvastatin (CRESTOR) 20 mg Oral TabletIndications:H yperlipidemia, unspecified hyperlipidemia type Take 1 Tablet by mouth nightly. 90 Tablet 1 5 semaglutide, weight loss, (WEGOVY) 1.7 mg/0.75 mL SubQ Pen InjectorIndications :Obesity, Class I, BMI 30-34.9 Inject 1.7 mg under the skin once a week for 4 doses. 3 mL 5 03/22/20 25 documented as of this encounter Discharge Disposition Disposition Code Departure Means Destination Home or Self Care documented in this encounter Plan of Treatment Upcoming Encounters Date Type Department Care Team (Late st Contact Info) Description 04/20/2025 7:30 AM EDT Office Visit [facility] [address] [place] [address] Allen Mccord MD [address] [place] [address] documented as of this encounter Goals Goal Patient Goal Type Associated Problems Recent Progress Patient-Stated? Author Maintain a healthy diet, exercise regularly and maintain an ideal body weight General No Camila Purcell LPN documented as of this encounter Procedures Procedure Name Priority Date/Time Associated Diagnosis Comments LIPID SCREEN Routine 03/09/2025 8:01 AM EDT Hyperlipidemia, unspecified hyperlipidemia type COMPREHENSIVE METABOLIC PANEL Routine 03/09/2025 8:01 AM EDT Hyperlipidemia, unspecified hyperlipidemia type documented in this encounter Results * COMPREHENSIVE METABOLIC PANEL [...] - 1.4 mg/dL 03/09/2025 3:31 PM EDT [facility] ALT 17 <=41 U/L 03/09/2025 3:31 PM EDT [facility] AST 17 <=40 U/L 03/09/2025 3:31 PM EDT [facility] Alk Phos 86 40 - 129 U/L 03/09/2025 3:31 PM EDT [facility] eGFR (CKD-EPIcr 2020) 75 >=60 mL/min/1.7 3 m2 03/09/2025 3:31 PM EDT [facility], [facility] Comment:Estimated GFR was ca lculated using the CKD-EPIcr (2020) equation refit without race. The equation is recommended by the National Kidney Foundation - [place] Society of Nephrology Task Force. Blood VENOUS BLOOD / Unknown Venipuncture / Unknown 03/09/2025 8:01 AM EDT 03/09/2025 8:01 AM EDT Allen Mccord MD CHEMISTRY ORDERABLES Fin al Result [facility], [facility] [address] [facility] , [place] [address] * LIPID SCREEN (03/09/2025 8:01 AM EDT) Cholesterol 144 <200 mg/dL 03/09/2025 3:31 PM EDT [facility], [facility] Comment: < 200 Desirable 200 - 239 Borderline High >= 240 High Triglyceride 43 <150 mg/dL 03/09/2025 3:31 PM EDT [facility], [facility] Comment: < 150 Normal 150 - 199 Borderline High 200 - 499 High >= 500 Very High HDL 60 >=40 mg/dL 03/09/2025 3:31 PM EDT [facility], [facility] Comment: > 60 Optimal 40 - 60 Acceptable < 40 Low LDL Calculated 74 <100 mg/dL 03/09/2025 3:31 PM EDT [facility], [facility] Comment: < 100 Optimal 100 - 129 Near or above optimal 130 - 159 Borderline High 160 - 189 High >= 190 Very High The National Institutes of Health (NIH) equation is used for all lipid panels that report calculated LDL (LDL-C). Non-HDL-C Calculated 84 <=129 mg/dL 03/09/2025 3:31 PM EDT [facility] Comment: <130 Desirable 130-159 Above Desirable 160-189 Borderline High 190-219 High >= 220 Very High Fasting Specimen? Yes None 025 3:31 PM EDT [facility] Blood VENOUS BLOOD / Unknown Venipuncture / Unknown 03/09/2025 8:01 AM EDT 03/09/2025 8:01 AM EDT us Allen Mccord MD CHEMISTRY ORDERABLES Fin al Result [facility] [address] [facility] , [place] [address] documented in this encounter Visit Diagnoses Diagnosis Hyperlipidemia, unspecified hyperlipidemia type documented in this encounter Additional Health Concerns Assessment Noted Time A fall risk assessment has been complete d for the patient 07/17/2023 1:28 PM EST documented as of this encounter Care Teams Outdoor Landscape Architect Relationship Specialty Start Date End Date Yuan Cosme MD [address] [place] [address] PCP - General Internal Medicine 12/27/20 documented as of this encounter
--- OUTSIDE RECORDS SUMMARY | 2025-04-19 11:46 | XMS_ITS | Clinical Summary ---
Author Organization [facility] Address [address] [place] [address] Phone Care Team Providers Care Kennel Manager Name Role Phone Tom PATE, Hernan Unavailable [phone] Conditions or Problems Problem Name Problem Code Onset Date Status Entry Date Provider Comment Standard Description Annotate LUMBAR RADICULOPATH Y 754212554 (SNOMED CT) 08/04 Active 08/04 Christopher Salgado Lumbar radiculopathy BACK PAIN, LOW 209590409 (SNOMED CT) 08/04 Active 08/04 Christopher Salgado Low back pain ENCOUNTER FOR OTHER SPECIFIED SURGICAL AFTERCARE Z48.89 (ICD-10-CM ) 10/18 Active 10/18 Hubert Rowell MD Encounter for other specified surgical aftercare PREOPERATIVE EXAM 120312796 (SNOMED CT) 09/27 Active 09/28 Ericka Sanchez MA Pre-surgery evaluation HERNIATED LUMBAR DISC 661427018 (SNOMED CT) 08/07 Active 08/07 Hubert Rowell MD Prolapsed lumbar intervertebral disc OVERWEIGHT 918882908 (SNOMED CT) 08/07 Active 08/07 Neisha Bello MA Overweight Take Note of COUGH, CHRONIC 30910028 (SNOMED CT) 08/05 Active 08/05 Nel Lott MA Chronic cough NECK PAIN 20124056 (SNOMED CT) 08/05 Active 08/05 Hernan Santos NP Neck pain SPONDYLOSIS, LUMBAR 860785092 (SNOMED CT) 08/05 Active 08/05 Hernan Santos NP Lumbosacral spondylosis SPONDYLOSIS, CERVICAL M47.812 (ICD-10-CM ) 08/05 Active 08/05 Hernan Santos [employer] Spondylosis without myelopathy or radiculopathy, cervical region Medications Medication Instructions Start Date Stop Date Generic Name NDC Provider MEDROL 4 MG TBPK Take as directed : Hold all NSAIDs while using steroids methylprednisolone 90666294973 Hernan Santos NP MEDROL 4 MG TBPK as directed 08/04 METHYLPREDNISOLONE 25845788140 Hubert Rowell MD MELOXICAM TABS Non-[facility] 08/04 MELOXICAM TABS [id number] Neisha Bello MA SIMVASTATIN TABLET [facility] 08/04 SIMVASTATIN TABS [id number] Neisha Bello MA FLEXERIL 10 MG TABS 1 po tid 08/07 CYCLOBENZAPRINE HCL [id number] Neisha Bello MA VOLTAREN 75 MG TBEC 1 po bid 08/07 DICLOFENAC SODIUM 34951820852 Neisha Bello MA VYTORIN TABLET [facility] 08/07 EZETIMIBE-SIMVASTATI N TABS [id number] Neisha Bello MA VYTORIN TABLET [facility] 09/13 EZETIMIBE-SIMVASTATI N TABS [id number] Nel Lott MA VOLTAREN 75 MG TBEC 1 po bid 08/07 DICLOFENAC SODIUM [id number] Hernan Santos [employer]TER FLEXERIL 10 MG TABS 1 po tid 08/07 CYCLOBENZAPRINE HCL [id number] Hernan Santos NP Medications Administered No information available. Allergies, Adverse Reactions, Alerts Observed no known allergies at Results No information available. Plan of Care Type Date Detail Pending order MRI Lumbar with & without contrast Pending order MRI Lumbar with & without contrast Pending order CBC Pending order COVID-19 Test Pending order Covid-19 Ambulat ory Pending order Renal functional panel with BUN Pending order EKG Pending order JOSE RAMON Series=1.3 I njections Procedures No information available. Vital Signs Date Name Value Unit Description BMI (Body Mass Index) 29.53 kg/m2 Bod y Mass Index (Ratio) Height 74 [in_us] height E&M Weight Measured 230 [lb_av] weight E& M Weight Measured 230 [lb_av] weight E& M Body Temperature 98.2 [degF] temperat ure E&M BP Diastolic 87 mm[Hg] blood pressu re, diastolic BP Systolic 144 mm[Hg] blood pressur e, systolic Heart Rate 64 /min pulse rate Respiratory Rate 16 /min respirat ory rate E&M Immunizations No information available. Advance Directives No information available.
--- OUTSIDE RECORDS SUMMARY | 2025-04-19 11:46 | XMS_ITS | Clinical Summary ---
Author Organization [facility] Address [address], [address] [place] [address] Care Team Providers Care Supervisor Pipelines Name Role Phone Lai Rosa MD Primary Care Provider Un available Social History Tobacco Use Types Packs/Day Years Used Date Smoking Tobacco: Never Assessed Sex and Gender Information Value Date Recorded Sex Assigned at Not on file Legal Sex Male 11:49 AM EDT Gender Identity Not on file Sexual Orientation Not on file Plan of Treatment Not on file Insurance Care Teams Supervisor Pipelines Relationship Specialty Start Date End Date Lai Rosa MD PCP - General 05/25/16
--- OUTSIDE RECORDS SUMMARY | 2025-04-19 11:46 | XMS_ITS | Clinical Summary ---
Author Organization [facility] Address [address] [place] [address] Care Team Providers Care Glove Cutter Name Role Phone Lai Rosa MD Primary Care Provider [phone] Allergies No known active allergies Medications Wegovy 0.25 MG/0.5ML solution auto-injector Inject 0.25 mg under the skin every 7 (seven) days. 11/03/19 25 Active PHENTOLAMINE MESYLATE IJ 0.2-0.5 mL by Intracavernosal route. 03/10/20 24 Active erythromycin (Romycin) 5 MG/GM ophthalmic ointment 03/16/20 24 Active alprostadil-phento florina-papaverine (Trimix) 20-1-30 mcg-mg-mg/mL intracavernosal injection Inject 0.10 mL (10 units) to 0.50 mL (50 units) as directed. 5 mL 11 11/10/19 25 Active SURE COMFORT INS SYR 1CC/29G 29G X 1/2 1 ML misc use as directed 01/14/20 25 Active Wegovy 1.7 MG/0.75ML solution auto-injector 02/16/20 25 Active alprostadil-phento florina-papaverine (Trimix) 40-1-30 mcg-mg-mg/mL intracavernosal injection Inject 0.10 mL (10 units) to 0.50 mL (50 units) as directed. Start with HALF of the dose you are using, then titrate up by 0.05 mL (5 units) until suitable response. Max dose of 0.50 mL (50 units). 2 mL 11 02/17/20 25 Active rosuvastatin (Crestor) 20 MG tablet Take 1 tablet by mouth nightly. Active Active Problems Problem Noted Date Diagnosed Date Adenocarcinoma of prostate 05/17/2015 Prostate cancer 03/30/2015 Overview (03/07/2021): Malignant tumor of prostate Erectile dysfunction 04/04/2010 Seasonal allergies 04/04/2010 Hyperlipidemia 03/20/2010 Encounters Date Type Department Care Team Description 02/16/2025 8:00 AM EDT Office Visit [facility] [address] [place] [id number] Darion Hebert MD Prostate cancer ([facility]/HCC) (Primary Dx) 02/16/2025 Orders Only Medical Office Building Urology [address], [address] [place] [address] Darion Hebert MD Prostate cancer ([facility]/HCC) (Primary Dx) 02/16/2025 Travel from Last 3 Months Family History Medical History Relation Name Comments Brain Tumor Mother Cardiac disorder Mother Relation Name Status Comments Mother Social History Tobacco Use Types Packs/Day Years Used Date Smoking Tobacco: Never Passive Smoke Exposure: Never Smokeless Tobacco: Never Tobacco Cessation:Counseling Given: Not Answered Alcohol Use Standard Drinks/Week Comments Yes 0 (1 standard drink = 0.6 oz pure alcohol) Alcoholic Drinks/day: Moderate alcohol use PHQ-2 Answer Date Recorded Patient Health Questionnaire-2 Score 0 02/16/2025 PHQ-9 Answer Date Recorded Patient Health Questionnaire-9 Score 0 02/16/2025 PHQ-2A Answer Date Recorded Patient Health Questionnaire-2 Score 0 03/05/2023 Sex and Gender Information Value Date Recorded Sex Assigned at Not on file Legal Sex Male 7:07 PM EDT Gender Identity Not on file Sexual Orientation Not on file Last Filed Vital Signs Vital Sign Reading Time Taken Comments Blood Pressure 138/84 02/16/2025 7:52 AM EDT Pulse 64 02/16/2025 7:52 AM EDT Temperature 36.4 C (97.5 F) 02/16/2025 7:52 AM EDT Respiratory Rate 18 02/16/2025 7:52 AM EDT Oxygen Saturation 98% 02/16/2025 7:52 AM EDT Inhaled Oxygen Concentration - - Weight 101 kg (222 lb 10.6 oz) 02/16/2025 7:52 A M EDT Height 188 cm (6' 2 ) 02/16/2025 7:52 AM EDT Body Mass Index 28.59 02/16/2025 7:52 AM EDT Plan of Treatment Upcoming Encounters Date Type Department Care Team (Late st Contact Info) Description 11/10/2025 8:10 AM EDT Office Visit [facility] Urology [address] [place] [address] Starr Bowen APRN, DNP [address] [place] [address] 02/16/2026 7:00 AM EDT Clinical Support [facility] [address] [place] [address] 02/16/2026 8:10 AM EDT Office Visit [facility] Urology [address] [place] [address] Starr Bowen APRN, DNP [address] [place] [address] Health Maintenance Due Date Last Done Comments [facility]-Hepatitis C Screening 1950 [facility]-Infant/Child/Adol SDOH Screenings 1950 [facility]- SDOH Screenings 1970 [facility]-Adult SDOH Screenings 1970 CT Colonography 1997 Colonoscopy 1997 FIT-DNA 1997 FIT 1997 FOBT 1997 Sigmoidoscopy 1997 [facility]-Colorectal Cancer Screening 1997 [id number] Vaccine ( season) 2025 08/22/2022, 07/06/2021, 10/07/2020 [facility]-Influenza Vaccine (#1) 2025 05/13/2013 [facility]-Medicare Annual Wellness (AWV) 11/02/2025 11/02/2024, 03/11/2023, 03/12/2022, Additional history exists [facility]-DTaP,Tdap,and Td Vaccines (3 - Td or Tdap) 01/02/2026 01/03/2016, 02/19/2008 [facility]-Depression Screening 02/16/2026 02/16/2025, 01/27 [facility]-RSV Vaccine: 60+ Years or (1 - 1-dose 75+ series) 11/05/2027 [facility]-Zoster Vaccines Completed 05/13/2019, 11/20/2018, 01/09/2013 [facility]-Pneumococcal Vaccine: 50+ Years Completed 09/02/2019, 08/19/2018 [facility]-Obesity Intervention Completed 025, 11/09/2024, 03/10/2024, Additional history exists HPV Vaccines Aged Out No longer eligi ble based on patient's age to complete this topic [facility]-HIB Vaccines Aged Out No longer e ligible based on patient's age to complete this topic [facility]-Hepatitis A Vaccines Aged Out No longer eligible based on patient's age to complete this topic [facility]-IPV Vaccines Aged Out No longer e ligible based on patient's age to complete this topic [facility]-Rotavirus Vaccines Aged Out No lo nger eligible based on patient's age to complete this topic Procedures Procedure Name Priority Date/Time Associated Diagnosis Comments PROSTATE SPECIFIC ANTIGEN, DIAGNOSTIC, SERUM Routine 02/16/2025 7:36 AM EDT Prostate cancer (CMS/HCC) from Last 3 Months Results * PSA, diagnostic (02/16/2025 7:36 AM EDT) PSA, Diagnostic, Serum <0.01 0.00 - 6.50 ng/mL 02/16/2025 9:04 AM EDT [facility] Blood Venous blood specimen / Unknown Venipuncture / Unknown 02/16/2025 7:36 AM EDT 02/16/2025 7:36 AM EDT Narrative [facility] - 02/16/2025 9:04 AM EDT Performed by Sera electrochemiluminescent immunoassay which is standardized against the PSA Edgard Reference Standard (WHO 96/670). Results obtained with different test methods or kits cannot be used interchangeably. us Darion Hebert MD LAB BLOOD ORDERABLES Final Re sult [facility] [address] [place] [address] from Last 3 Months Insurance [facility] MEDICARE Care Teams Glove Cutter Relationship Specialty Start Date End Date Lai Rosa MD [address] [place] [id number] PCP - General 12/09/20
--- OUTSIDE RECORDS SUMMARY | 2025-04-19 11:46 | XMS_ITS | Clinical Summary ---
Author Organization [facility] Address [address] [place] [address] Phone Care Team Providers Care Seismic Engineer Name Role Phone Yuan Cosme MD Primary Care Provider [phone] Allergies No known active allergies Medications papaverine-phento robin-alprost (TRI-MIX, LVYQEEL-XWXHMYB-C GE1,) 150 mg-5 mg- 50 mcg ICav Recon SolnIndications:P rostate cancer (HCC) 0.2-0.5 mL by Intracavernosal route. 03/10/20 24 Active rosuvastatin (CRESTOR) 20 mg Oral TabletIndications :Hyperlipidemia, unspecified hyperlipidemia type Take 1 Tablet by mouth nightly. 90 Tablet 1 03/09/20 25 Active semaglutide, weight loss, (WEGOVY) 1.7 mg/0.75 mL SubQ Pen InjectorIndicatio ns:Obesity, Class I, BMI 30-34.9 Inject 1.7 mg under the skin once a week for 4 doses. 3 mL 03/22/20 25 Active semaglutide, weight loss, (WEGOVY) 1.7 mg/0.75 mL SubQ Pen InjectorIndicatio ns:Obesity, Class I, BMI 30-34.9 Inject 1.7 mg under the skin once a week for 4 doses. 3 mL 02/16/20 25 2024 Disconti bk(Reo rder) Active Problems Patient Care Coordination No te Formatting of this note migh t be different from the original. HCC audit completed by Tamara Steven RN on 05/08/2022. Problem Noted Date Diagnosed Date History of prostate cancer 11/02/2024 Overview (11/02/2024): Sees Urology,stable s/p removal History of open reduction an d internal fixation (ORIF) procedure 05/09/2022 Pain in left lower leg 05/09/2022 Erectile dysfunction 07/04/2016 Seasonal allergies 04/04/2010 ED (erectile dysfunction) 04/04/2010 Erectile dysfunction 04/04/2010 Hyperlipidemia 03/20/2010 Resolved Problems Problem Noted Date Diagnosed Date Resolved Date Screening for prostate cancer 05/18/2015 05/18/2015 Prostate cancer 05/18/2015 11/02/2024 Adenocarcinoma of prostate 05/17/2015 0 11/02/2024 Encounters Date Type Department Care Team Description 03/22/2025 Telephone [facility] [address] [place] [address] Yuan Cosme MD Refill (wegovy-not pended) 03/09/2025 8:00 AM EDT - 03/09/2025 11:59 PM EDT Hospital Encounter [facility] [address] [place] [address] Hyperlipidemia, unspecified hyperlipidemia type Discharge Disposition: Home or Self Care 03/09/2025 7:50 AM EDT Office Visit [facility] [address] [facility] [place] [address] Allen Mccord MD Hyperlipidemia, unspecified hyperlipidemia type (Primary Dx); History of prostate cancer; Seasonal allergies 03/09/2025 Results Follow-Up [facility] [address] [facility] [place] [address] Yuan Cosme MD LIPID SCREEN, COMPREHENSIVE METABOLIC PANEL 02/15/2025 Telephone [facility] [address] [place] [address] Yuan Cosme MD Medication Management 01/20/2025 Telephone [facility] [address] [place] [address] Yuan Cosme MD Medication Refill (semaglutide, weight loss, (WEGOVY) 1 mg/0.5 mL SubQ Pen Injector 2 mL 0 12/24/2024 01/15/2025 /Sig - Route: Inject 1 mg under the skin once a week for 4 doses. - Subcutaneous //) from Last 3 Months Immunizations Immunization Administration Dates Next Due Influenza Vaccine, Unspecified Formulation 05/13 LoveThis SARS-CoV-2 Bivalent B ooster Vaccine 12+ Years ([place]) 08/22/2022 Pneumococcal Conjugate Vaccine 13 Valent 019 Pneumococcal Polysaccharide 23 Valent 09/02/2019 Tdap 01/03/2016,02/19/2008 Zoster 01/09/2013 Zoster Recombinant 05/13/2019,11/20/2018 Surgical History Surgery Date Site/Laterality Comments PROSTATE SURGERY COLONOSCOPY SHOULDER ARTHROSCOPY 07/11/2015 Shoulder/Left LEFT SHOULDER ARTHROSCOPY ROTATOR CUFF REPAIR ARTHROSCOPIC SUBACROMIAL DECOMPRESSION [place] ; Surgeon: Danny Betlre MD; Location: [facility]; Service: Orthopedics Medical devices from this surgery are in the Medical Devices section. ANKLE SURGERY 12/26/2017 Ankle/Left LEFT ANKLE DISTAL TIBIA FRACTURE OPEN REDUCTION INTERNAL FIXATION ; Surgeon: Jack Buck MD; Location: [facility]; Service: Orthopedics Medical devices from this surgery are in the Medical Devices section. IR GUIDED INJECT TRANSFORAM EPIDUR LUMB OR SACRAL SINGLE LVL 04/28/2020 IR GUIDED INJECT TRANSFORAMINAL EPIDUR LUMB OR SACRAL SINGLE LVL 04/28/2020 [facility] IR GUIDED INJECT TRANSFORAM EPIDUR LUMB OR SACRAL SINGLE LVL 09/15/2020 IR GUIDED INJECT TRANSFORAMINAL EPIDUR LUMB OR SACRAL SINGLE LVL 09/15/2020 [facility] Medical History Medical History Date Comments Allergy Hyperlipidemia Prostate disorder Cancer (HCC) 05/12 prostate surgery Family History Medical History Relation Name Comments Cancer Father Cancer Mother Anesth Problems Neg Hx Relation Name Status Comments Father Mother Social History Tobacco Use Types Packs/Day Years Used Date Smoking Tobacco: Never Smokeless Tobacco: Never Tobacco Cessation:Counseling Given: [...] on file Sexual Orientation Not on file Obstetrics History Last Filed Vital Signs Vital Sign Reading [...] Mass Index 28.66 03/09/2025 7:40 AM EDT Plan of Treatment Upcoming Encounters Date Type Department Care Team (Late st Contact Info) Description 04/20/2025 7:30 AM EDT Office Visit [facility] [address] [place] [address] Allen Mccord MD [address] [place] [address] Health Maintenance Due Date Last Done Comments Cologuard 1997 FIT 1997 Sigmoidoscopy 1997 Virtual Colonography 1997 Colon Cancer Screening 10/16/2024 Colonoscopy 10/16/2024 10/16/2021, 02/27, 03/24/2018, Additional history exists COVID-19 Vaccine ( season) 2025 08/22/2022 Influenza Vaccine (#1) 2025 8 (Declined), 07/04/2016 (Declined), 05/18/2015 (Declined), Additional history exists Wellness Exam Medicare 11/03/2025 11/02/2024 DTaP/TDaP/Td (3 - Td or Tdap) 01/02/2026 01/03/2016, 02/19/2008 Hepatitis C Screening Completed 08/19/2018 Zoster Completed 05/13/2019, 10/28, 01/09/2013 Pneumococcal Vaccine 50+ Completed 09/02/2019, 07/30 Hepatitis B Vaccine Aged Out No longe r eligible based on patient's age to complete this topic Meningococcal B Vaccine Aged Out No l onger eligible based on patient's age to complete this topic Goals Goal Patient Goal Type Associated Problems Recent Progress Patient-Stated? Author Maintain a healthy diet, exercise regularly and maintain an ideal body weight General No Camila Purcell LPN Medical Devices Implanted Type Area Assistant Coach Device Identifier Shelf Expiration Date Model / Serial / Lot [employer] Y-Knot - [id number] Implanted:Qty: 1 on 07/11/2015 by Danny Beltre MD at [facility] Left: Shoulder CONMED:LINVATEC [id number] 04/27/2020 YR03 / / [id number] [employer] Poplok 4.5mm - [id number] Implanted:Qty: 1 on 07/11/2015 by Danny Beltre MD at [facility] Left: Shoulder CONMED:LINVATEC [id number] 05/14/2020 [facility]00 / / [id number] [employer]ifax Poplok 4.5mm - [id number] Implanted:Qty: 1 on 07/11/2015 by Danny Beltre MD at [facility] Left: Shoulder CONMED:LINVATEC [id number] 05/14/2020 [facility]00 / / [id number] Plate Bn Axsos 3 Ti L227 Mm Tibia Left Distal Medial 14hole - [id number] Implanted:Qty: 1 on 12/26/2017 by Jack Buck MD at [facility] Left: Ankle MARIA TERESA:ORTHOPE DICS [id number] / / Plate Tubular One-Third 8hole/L95mm - [id number] Implanted:Qty: 1 on 12/26/2017 by Jack Buck MD at [facility] Left: Ankle MARIA TERESA:ORTH[employer] D[employer] [id number] / / Screw Bone Full Thread T10 2.7plbe28xp - [id number] Implanted:Qty: 1 on 12/26/2017 by Jack Buck MD at [facility] Left: Ankle MARIA TERESA:OR[employer] DICS [id number] / / Screw Bone Full Thread T10 3.5mm X L16mm - [id number] Implanted:Qty: 2 on 12/26/2017 by Jack Buck MD at [facility] Left: Ankle MARIA [employer]ESA:OR[employer] DICS [id number] / / Screw Bone T10 Full Thread 3.5mm/L18mm - [id number] Implanted:Qty: 2 on 12/26/2017 by Jack Buck MD at [facility] Left: Ankle MARIA [employer]A:OR[employer]ICS [id number] / / Screw Locking Full Thread T10 3.5mm X L18mm - [id number] Implanted:Qty: 1 on 12/26/2017 at [facility] Left: Ankle MARIA TERESA:OR[employer] D[employer] [id number] / / Screw Locking Full Thread T10 3.5mm X L16mm - [id number] Implanted:Qty: 1 on 12/26/2017 at [facility] Left: Ankle MARIA TERESA:OR[employer] D[employer] [id number] / / Screw Cortex Ti 3.5mm X 30mm - [id number] Implanted:Qty: 4 on 12/26/2017 by Jack Buck MD at [facility] Left: Ankle MARIA [employer]ESA:OR[employer] [id number] / / Screw Cortex Ti 3.5mm X 40mm - [id number] Implanted:Qty: 1 on 12/26/2017 by Jack Buck MD at [facility] Left: Ankle MARIA TERESA:OR[employer] DICS [id number] / / Screw Cortex Ti 3.5x28mm - [id number] Implanted:Qty: 1 on 12/26/2017 by Jack Buck MD at [facility] Left: Ankle MARIA TERESA:ORTHOPE DICS [id number] / / Screw Locking 4.0mm X L44mm - [id number] Implanted:Qty: 2 on 12/26/2017 by Jack Buck MD at [facility] Left: Ankle MARIA TERESA:OR[employer]OPE DICS [id number] / / Screw Locking 4.0mm X L40mm - [id number] Implanted:Qty: 1 on 12/26/2017 by Jack Buck MD at [facility] Left: Ankle MARIA TERESA:OR[employer]ICS [id number] / / Screw Cancellous Ti 4.0 X L48mm Full Thread - [id number] Implanted:Qty: 1 on 12/26/2017 by Jack Buck MD at [facility] Left: Ankle MARIA TERESA:ORTHOPE DICS [id number] / / Procedures Procedure Name Priority Date/Time Associated Diagnosis Comments COMPREHENSIVE METABOLIC PANEL Routine 03/09/2025 8:01 AM EDT Hyperlipidemia, unspecified hyperlipidemia type LIPID SCREEN Routine 03/09/2025 8:01 AM EDT Hyperlipidemia, unspecified hyperlipidemia type GMED COLONOSCOPY Routine 10/16/2021 12:4 0 PM EDT Screening for colon cancer HCV ANTIBODY SCREEN W/ REFLEX Routine 08/19/2018 1:26 PM EST Need for hepatitis C screening test from Last 3 Months or Most Recently Relevant to Health Maintenance Results * LIPID SCREEN (03/09/2025 8:01 AM EDT) Cholesterol 144 <200 mg/dL 03/09/2025 3:31 PM EDT [facility] Comment: < 200 Desirable 200 - 239 Borderline High >= 240 High Triglyceride 43 <150 mg/dL 03/09/2025 3:31 PM EDT [facility] Comment: < 150 Normal 150 - 199 Borderline High 200 - 499 High >= 500 Very High HDL 60 >=40 mg/dL 03/09/2025 3:31 PM EDT [facility] Comment: > 60 Optimal 40 - 60 Acceptable < 40 Low LDL Calculated 74 <100 mg/dL 03/09/2025 3:31 PM EDT [facility] Comment: < 100 Optimal 100 - 129 Near or above optimal 130 - 159 Borderline High 160 - 189 High >= 190 Very High The National Institutes of Health (NIH) equation is used for all lipid panels that report calculated LDL (LDL-C). Non-HDL-C Calculated 84 <=129 mg/dL 03/09/2025 3:31 PM EDT [facility] Comment: <130 Desirable 130-159 Above Desirable 160-189 Borderline High 190-219 High >= 220 Very High Fasting Specimen? Yes None 025 3:31 PM EDT [facility] Blood VENOUS BLOOD / Unknown Venipuncture / Unknown 03/09/2025 8:01 AM EDT 03/09/2025 8:01 AM EDT us Allen Mccord MD CHEMISTRY ORDERABLES Fin al Result [facility], [facility] [address] , [place] [address] * COMPREHENSIVE METABOLIC PANEL (03/09/2025 8:01 AM EDT) Sodium 139 136 - 145 mmol/L 03/09/2025 3:31 PM EDT [facility] Potassium 3.9 3.5 - 5.0 mmol/L 03/09/2025 3:31 PM EDT [facility] Chloride 103 98 - 107 mmol/L 03/09/2025 3:31 PM EDT [facility] Total CO2 26 22 - 29 mmol/L [...] 03/09/2025 3:31 PM EDT [facility] Total Protein 7.1 6.4 - 8.3 gm/dL 03/09/2025 3:31 PM EDT [facility] Bili Total 0.5 0.2 - 1.4 mg/dL 03/09/2025 3:31 PM EDT [facility] ALT 17 <=41 U/L 03/09/2025 3:31 PM EDT [facility] AST 17 <=40 U/L 03/09/2025 3:31 PM EDT [facility] Alk Phos 86 40 - 129 U/L 03/09/2025 3:31 PM EDT [facility] eGFR (CKD-EPIcr 2020) 75 >=60 mL/min/1.7 3 m2 03/09/2025 3:31 PM EDT [facility] Comment:Estimated GFR was ca lculated using the CKD-EPIcr (2020) equation refit without race. The equation is recommended by the National Kidney Foundation - [place] [employer] of Nephrology Task Force. Blood VENOUS BLOOD / Unknown Venipuncture / Unknown 03/09/2025 8:01 AM EDT 03/09/2025 8:01 AM EDT Allen Mccord MD CHEMISTRY ORDERABLES Fin al Result [facility] [address] , [address] [place] [id number] * GMED COLONOSCOPY (10/16/2021 12:40 PM EDT) 10/16/2021 12:4 0 PM EDT Impressions [facility] - 10/16/2021 1:16 PM EDT Diverticulosis of the colon. Polyps (3 mm) in the sigmoid colon and rectum. (Polypectomy). Grade/Stage II internal hemorrhoids. Plan: Follow up pathology results. High Fiber Diet Begin a daily fiber supplement as directed Continue current GI medications Resume all usual medications Educational Handout: Diverticulosis Educational Handout: Hemorrhoids Colonoscopy in 5 years Polyp and colon cancer prevention. Supplemental Calcium, folic acid, baby asa have been shown to decrease the risk of colon polyps and cancer. This section is an excerpt of the full report. us Rich Stiles MD GI PROCEDURE ORDERABLES Final Result Performing Organization Address City/[facility]/ZIP Co de Phone Number [facility] [address] [place] [address] * HEPATITIS C ANTIBODY - SCREENING (08/19/2018 1:26 PM EST) Hep C Ab Non-Reactiv e Non-Reacti ve 08/19/2018 8:06 PM EST [facility] Blood VENOUS BLOOD / Unknown Venipuncture / Unknown 08/19/2018 1:26 PM EST 08/19/2018 1:27 PM EST Lai Rosa MD HEMATOLOGY ORDERABLES Fin al Result Performing Organization Address City/[facility]/ZIP Co de Phone Number [facility] [address] [place] [address] from Last 3 Months or Most Recently Relevant to Health Maintenance Insurance [facility] MR JODY SOMERS MR [employer] SOMERS MR J[employer] SOMERS MR Advance Directives For more information, please contact: [phone] * Full Code (Latest Code Status on File) Date Activated Date Inactivated Comments 09/08/2015 11:27 AM 09/08/2015 4:20 PM * Full Code Date Activated Date Inactivated Comments 07/11/2015 9:59 AM 07/11/2015 2:40 PM Care Teams Seismic Engineer Relationship Specialty Start Date End Date Yuan Cosme MD [address] [place] [address] PCP - General Internal Medicine 12/27/20
--- OUTSIDE RECORDS SUMMARY | 2025-04-19 11:46 | XMS_ITS | Encounter Summary ---
Author Organization [place] [address] Care Team Providers Care Heating And Ventilating Drafter Name Role Phone Yuan Cosme MD Primary Care Provider [phone] Encounter Details Date Type Department Care Team (Latest Contact Info) Description 03/09/2025 Results [facility] [address] [place] [address] Yuan Cosme MD [address] [place] [address] LIPID SCREEN, COMPREHENSIVE METABOLIC PANEL Social History Tobacco Use Types Packs/Day Years [...] of Assessment Author No 11/02/2024 8:34 AM Shaun Solis RMA * Is the person blind or does he/she have serious difficulty seeing even when wearing glasses? Answer Date of Assessment Author No 11/02/2024 8:34 AM Shaun Solis RMA * Does this person have serious [...] Entry Date Author No 11/02/2024 8:34 AM EDT Shaun Mccall RMA documented in this encounter Plan of Treatment Upcoming Encounters Date Type Department Care Team (Late st Contact Info) Description 04/20/2025 7:30 AM EDT Office Visit [facility] [address] [facility] [address] Allen Mccord MD [address] [place] [address] documented as of this encounter Goals Goal Patient Goal Type Associated Problems Recent Progress Patient-Stated? Author Maintain a healthy diet, exercise regularly and maintain an ideal body weight General No Camila Purcell LPN documented as of this encounter Visit Diagnoses Not on filedocumented in this encounter Additional Health Concerns Assessment Noted Time A fall risk assessment has been complete d for the patient 07/17/2023 1:28 PM EST documented as of this encounter Care Teams Heating And Ventilating Drafter Relationship Specialty Start Date End Date Yuan Cosme MD [address] [place] [address] PCP - General Internal Medicine 12/27/20 documented as of this encounter
--- OUTSIDE RECORDS SUMMARY | 2025-04-19 11:46 | XMS_ITS | Encounter Summary ---
Author Organization [facility] [place] [address] Care Team Providers Care Labor Specialist Name Role Phone Yuan Cosme MD Primary Care Provider [phone] Reason for Visit * Reason Onset Date Comments Refill 03/22/2025 wegovy-not pende d Encounter Details Date Type Department Care Team (Late st Contact Info) Description 03/22/2025 Telephone [facility] [address] [place] [address] Yuan Cosme MD [address] [place] [address] Refill (wegovy-not pended) Social History Tobacco Use Types Packs/Day Years [...] Refills Last Filled Start Date End Date semaglutide, weight loss, (WEGOVY) 1.7 mg/0.75 mL SubQ Pen InjectorIndications :Obesity, Class I, BMI 30-34.9 Inject 1.7 mg under the skin once a week for 4 doses. 3 mL 03/22/2025 documented in this encounter Miscellaneous Notes * Telephone Encounter - Pauline Galvin RMA - 03/22/2025 10:31 AM EDT Medication refilled Pt notified * Telephone Encounter - Yuan Cosme MD - 03/22/2025 10:21 AM EDT Ok to refill * Telephone Encounter - Lissette Mccann - 03/22/2025 9:05 AM EDT Select the most appropriate reason for this telephone message: Medication Refill Who is requesting the refill: Patient Medication(s)Name/Dosage/Frequency: Disp Refills Start End semaglutide, weight loss, (WEGOVY) 1.7 mg/0.75 mL SubQ Pen Injector 3 mL 0 02/15/2025 03/09/2025 Sig - Route: Inject 1.7 mg under the skin once a week for 4 doses. - Subcutaneous Did patient contact the pharmacy first: No How many days left on hand: 0 Future appt date w/ prescribing provider: n/a Pharmacy & Location: [facility] [id number] [place] [address] [address] [email or web address] [phone] [[id number]] Return Method of Communication: Phone Call Additional Information: didn't pend-show that medication has ened documented in this encounter Plan of Treatment Upcoming Encounters Date Type Department Care Team (Late st Contact Info) Description 04/20/2025 7:30 AM EDT Office Visit [facility] [place] [address] [address] Allen Mccord MD [address] [place] [address] documented as of this encounter Goals Goal Patient Goal Type Associated Problems Recent Progress Patient-Stated? Author Maintain a healthy diet, exercise regularly and maintain an ideal body weight General No Camila Purcell LPN documented as of this encounter Visit Diagnoses Diagnosis Obesity, Class I, BMI 30-34.9 Obesity, unspecified documented in this encounter Discontinued Medications Medication Sig Discontinue Reason Start Date End Da te semaglutide, weight loss, (WEGOVY) 0.5 mg/0.5 mL SubQ Pen InjectorIndications: Obesity, Class I, BMI 30-34.9 Subcutaneous (Inject under the skin) 0.5 mg once a week for 4 doses. Medication order 11/26/2024 12/18/2024 semaglutide, weight loss, (WEGOVY) 1 mg/0.5 mL SubQ Pen InjectorIndications: Obesity, Class I, BMI 30-34.9 Inject 1 mg under the skin once a week for 4 doses. Medication order 01/20/2025 02/11/2025 semaglutide, weight loss, (WEGOVY) 1.7 mg/0.75 mL SubQ Pen InjectorIndications: Obesity, Class I, BMI 30-34.9 Inject 1.7 mg under the skin once a week for 4 doses. Reorder 02/15/2025 03/22/2025 documented as of this encounter Additional Health Concerns Assessment Noted Time A fall risk assessment has been complete d for the patient 07/17/2023 1:28 PM EST documented as of this encounter Care Teams Labor Specialist Relationship Specialty Start Date End Date Yuan Cosme MD [address] [place] [address] PCP - General Internal Medicine 12/27/20 documented as of this encounter
--- NOTE | 2025-04-19 12:07 | XR_ITS ---
FINAL REPORT CLINICAL HISTORY: hip pain. fell 3 days ago and has right sided groin pain COMPARISON: None FINDINGS: An AP view of the pelvis and a frog leg view of the right hip were obtained. There is no acute fracture or dislocation. There is degenerative disease asymmetric to the right. There is medial migration of the femoral head in the acetabulum. Remaining osseous pelvis is without acute abnormality. Soft tissues are unremarkable. IMPRESSION: Degenerative changes, with no acute osseous abnormality of the right hip. Reviewed, Interpreted and Dictated by Daphney Delgado MD Transcribed by Zaira Saunders Authenticated and [facility]
== END 2025-04-19 23:59 | disposition home or self-care (01) ==
LOC: RT 11:44
PROVIDERS: PCP Family Medicine; Visit Provider Nurse Practitioner Family
DX: M16.11 Unilateral primary osteoarthritis, right hip (principal); I49.1 Atrial premature depolarization; I47.19 Other supraventricular tachycardia; I49.3 Ventricular premature depolarization; W19.XXXA Unspecified fall, initial encounter
CPT/HCPCS: 73502; 93270

== ENCOUNTER 2025-04-29 06:45 | Outpatient (CLI) | payer MEDICARE, SELFPAY ==
--- OUTSIDE RECORDS SUMMARY | 2015-05-21 08:00 | XMS_ITS | Encounter Summary ---
Author Organization [place] [address] Care Team Providers Care Barrel Finisher Name Role Phone Lai Rosa MD Primary Care Provider Un available Encounter Details Date Type Department Care Team (Latest Contact Info) Description 05/21/2015 8:00 AM EDT Hospital Encounter GRT XRAY [address] [place], [place] [phone] Lai Rosa MD Left without seen Social [...] things 0 11/02/2024 8:34 AM EDT Shaun Mcacll RMA Feeling down, depressed, or hopeless 0 [...] 09/21/2024 7:38 PM Alexei Godfrey RN * [place] Suicide Severity Rating Scale (Q shift for [...] or making decisions? No 11/02/2024 8:34 AM ANIRUDHT Shaun Mccall RMA documented in this encounter Plan of Treatment Upcoming Encounters Date Type Department Care Team (Late st Contact Info) Description 05/10/2025 3:00 PM EDT Appointment [facility] MRI [address] [place] [address] Allen Mccord MD [address] [place] [address] 07/01/2025 10:20 AM EST Office Visit [facility] [address] [place] [address] Rosangela Beltre MD [address] [address] documented as of this encounter Goals Goal [...] documented as of this encounter Care Teams Barrel Finisher Relationship Specialty Start Date End Date Lai Rosa MD PCP - General Family Medicine 02/20/14 12/26/20 documented as of this encounter
--- OUTSIDE RECORDS SUMMARY | 2025-03-09 07:50 | XMS_ITS | Encounter Summary ---
Author Organization [place] [address] Care Team Providers Care Sharepoint Engineer Name Role Phone Yuan Cosme MD Primary Care Provider [phone] Reason for Visit * Reason Comments Hyperlipidemia Encounter Details Date Type Department Care Team (Latest Contact Info) Description 03/09/2025 7:50 AM EDT [facility] [address] [place] [address] Allen Collins MD [address] [place] [address] Hyperlipidemia, unspecified hyperlipidemia type (Primary Dx); History of prostate cancer; Seasonal allergies Social History Tobacco Use Types Packs/Day Years [...] on file Sexual Orientation Not on file documented as of this encounter Last Filed Vital Signs Vital Sign Reading Time Taken Comments Blood Pressure 136/82 03/09/2025 7:40 AM EDT Pulse 72 03/09/2025 7:40 AM EDT Temperature 36.8 C (98.2 F) 03/09/2025 7:40 AM EDT Respiratory Rate 18 03/09/2025 7:40 AM EDT Oxygen Saturation 98% 03/09/2025 7:40 AM EDT Inhaled Oxygen Concentration - - Weight 101.2 kg (223 lb 3.2 oz) 03/09/2025 7:40 AM EDT Height 188 cm (6' 2 ) 03/09/2025 7:40 AM EDT Body Mass Index 28.66 03/09/2025 7:40 AM EDT documented in this encounter Functional Status * Is the person deaf or does he/she have serious difficulty hearing? Answer Date of Assessment Author No 11/02/2024 8:34 AM EDT Shaun Mccall RMA * Is the person blind or does he/she have serious difficulty seeing even when wearing glasses? Answer Date of Assessment Author No 11/02/2024 8:34 AM EDT Shaun Mccall RMA * Does this person have serious difficulty walking or climbing stairs? Answer Date of Assessment Author No 11/02/2024 8:34 AM EDT Shaun Mccall RMA * Does this person have difficulty dressing or bathing? Answer Date of Assessment Author No 11/02/2024 8:34 AM EDT Shaun Mccall RMA * Because of a physical, mental or emotional condition, does this person have difficulty doing errands alone such as visiting a doctor's office or shopping? Answer Date of Assessment Author No 11/02/2024 8:34 AM EDT Shaun Mccall RMA documented as of this encounter Mental Status * Because of a physical, mental or emotional condition, does this person have serious difficulty concentrating, remembering or making decisions? Answer Entry Date Author No 11/02/2024 8:34 AM EDShaun Cruz RMA documented in this encounter Ordered Prescriptions Prescription Sig Dispense Quantity Refills Last Filled Start Date End Date rosuvastatin (CRESTOR) 20 mg Oral TabletIndications:Hy perlipidemia, unspecified hyperlipidemia type Take 1 Tablet by mouth nightly. 90 Tablet 1 03/09/2025 documented in this encounter Progress Notes * Allen Collins MD - 03/09/2025 7:50 AM EDT Vitals: 03/09/25 0740 BP: (!) 136/82 Pulse: 72 Resp: 18 Temp: 98.2 ??F (36.8 ??C) TempSrc: Forehead SpO2: 98% Weight: 223 lb 3.2 oz (101.2 kg) Height: 6' 2 (1.88 m) SUBJECTIVE: Chief Complaint Patient presents with Hyperlipidemia HPI: Hyperlipidemia: Last Lipid and liver panel has been reviewed. Current cholesterol goals discussed with patient. Thepatient is on a lipid lowering agent. The patient currently is on a statin. No complaints of side effects from medication. The patient is not having issues maintaining compliance with the previously outlined care plan. The patient does not report significant side effects of current medications/treatments. Diet has been reviewed with patient. wants a steroid shot for his allergies wants to discuss his wegovy Review of Systems Constitutional: Negative for activity change, appetite change and fatigue. Eyes: Negative for visual disturbance. Respiratory: Negative for cough and shortness of breath. Cardiovascular: Negative for chest pain. Gastrointestinal: Negative for abdominal distention and abdominal pain. Musculoskeletal: Negative for arthralgias. Skin: Negative for color change, rash and wound. Neurological: Negative for weakness and numbness. OBJECTIVE: Physical Exam Constitutional: Appearance: Normal appearance. He is well-developed. HENT: Head: Normocephalic. Right Ear: Tympanic membrane, ear canal and external ear normal. Left Ear: Tympanic membrane, ear canal and external ear normal. Mouth/Throat: Mouth: Mucous membranes are moist. Pharynx: No oropharyngeal exudate or posterior oropharyngeal erythema. Eyes: General: Right eye: No discharge. Left eye: No discharge. Conjunctiva/sclera: Conjunctivae normal. Pupils: Pupils are equal, round, and reactive to light. Neck: Thyroid: No thyromegaly. Cardiovascular: Rate and Rhythm: Normal rate and regular rhythm. Heart sounds: Normal heart sounds. No murmur heard. Pulmonary: Effort: Pulmonary effort is normal. No respiratory distress. Breath sounds: Normal breath sounds. No wheezing or rales. Abdominal: General: Bowel sounds are normal. There is no distension. Palpations: Abdomen is soft. There is no mass. Tenderness: There is no abdominal tenderness. Musculoskeletal: Cervical back: Normal range of motion and neck supple. Lymphadenopathy: Cervical: No cervical adenopathy. Skin: Findings: No lesion or rash. Assessment Diagnoses and all orders for this visit: Hyperlipidemia, unspecified hyperlipidemia type - rosuvastatin (CRESTOR) 20 mg Oral Tablet; Take 1 Tablet by mouth nightly. Dispense: 90 Tablet; Refill: 1 - LIPID SCREEN; Future - COMPREHENSIVE METABOLIC PANEL; Future - HEPATIC FUNCTION PANEL; Future; Expected date: 09/09/2025 History of prostate cancer Comments: s/p removal Overview: Sees Urology,stable s/p removal Seasonal allergies - methylPREDNISolone acetate (DEPO-Medrol) injection 80 mg No follow-ups on file. documented in this encounter Miscellaneous Notes * Addendum Note - Allen Collins MD - 03/09/2025 7:50 AM EDTAddended by: ALLEN COLLINS on: 03/09/2025 07:55 AM Modules accepted: Orders, Level of Service documented in this encounter Plan of Treatment Upcoming Encounters Date Type Department Care Team (Late st Contact Info) Description 05/10/2025 3:[address] [facility] MRI [address] [place] [address] Allen Collins MD [address] [place] [address] 07/01/2025 10:20 AM EST Office Visit [facility] [address] [place] [address] Rosangela Beltre MD [address] [place] [address] Scheduled Orders Name Type Priority Associated Diagnoses Orde r Schedule HEPATIC FUNCTION PANEL Lab Routine Hyperlipidemia, unspecified hyperlipidemia type Expected: 09/09/2025, Expires: 03/09/2026 documented as of this encounter Goals Goal Patient Goal Type Associated Problems Recent Progress Patient-Stated? Author Maintain a healthy diet, exercise regularly and maintain an ideal body weight General No Camila Purcell LPN documented as of this encounter Results * COMPREHENSIVE METABOLIC PANEL (03/09/2025 8:01 AM EDT) Sodium 139 136 - 145 mmol/L 03/09/2025 3:31 PM EDT [facility] Potassium 3.9 3.5 - 5.0 mmol/L 03/09/2025 3:31 PM EDT [facility] Chloride 103 98 - 107 mmol/L 03/09/2025 3:31 PM EDT [facility] Total CO2 26 22 - 29 mmol/L 03/09/2025 3:31 PM EDT [facility] Anion Gap 10 7 - 16 mmol/L 03/09/2025 3:31 PM EDT [facility] Calcium 9.4 8.8 - 10.4 mg/dL 03/09/2025 3:31 PM EDT [facility] Glucose Lvl 89 70 - 99 mg/dL 03/09/2025 3:31 PM EDT [facility] BUN 15 8 - 23 mg/dL 03/09/2025 3:31 PM EDT [facility] Creatinine 1.05 0.67 - 1.30 mg/dL 03/09/2025 3:31 PM EDT [facility] Albumin 4.2 3.2 - 4.6 gm/dL 03/09/2025 3:31 PM EDT [facility] Total Protein 7.1 6.4 - 8.3 gm/dL 03/09/2025 3:31 PM EDT [facility] Bili Total 0.5 0.2 - 1.4 mg/dL 03/09/2025 3:31 PM EDT [facility] ALT 17 <=41 U/L 03/09/2025 3:31 PM EDT [facility] AST 17 <=40 U/L 03/09/2025 3:31 PM EDT [facility] Alk Phos 86 40 - 129 U/L 03/09/2025 3:31 PM EDT [facility] eGFR (CKD-EPIcr 2020) 75 >=60 mL/min/1.7 3 m2 03/09/2025 3:31 PM EDT [facility] [employer] Comment:Estimated GFR was ca lculated using the CKD-EPIcr (2020) equation refit without race. The equation is recommended by the National Kidney Foundation - [place] [employer] of Nephrology Task Force. Blood VENOUS BLOOD / Unknown Venipuncture / Unknown 03/09/2025 8:01 AM EDT 03/09/2025 8:01 AM EDT us Allen Collins MD CHEMISTRY ORDERABLES Fin al Result [facility] [employer] [address] [facility] , [address] [place] [id number] * LIPID SCREEN (03/09/2025 8:01 AM EDT) Cholesterol 144 <200 mg/dL 03/09/2025 3:31 PM EDT [facility] [employer] Comment: < 200 Desirable 200 - 239 Borderline High >= 240 High Triglyceride 43 <150 mg/dL 03/09/2025 3:31 PM EDT [employer] Comment: < 150 Normal 150 - 199 Borderline High 200 - 499 High >= 500 Very High HDL 60 >=40 mg/dL 03/09/2025 3:31 PM EDT [facility] [employer] Comment: > 60 Optimal 40 - 60 Acceptable < 40 Low LDL Calculated 74 <100 mg/dL 03/09/2025 3:31 PM EDT [employer] Comment: < 100 Optimal 100 - 129 Near or above optimal 130 - 159 Borderline High 160 - 189 High >= 190 Very High The National Institutes of Health (NIH) equation is used for all lipid panels that report calculated LDL (LDL-C). Non-HDL-C Calculated 84 <=129 mg/dL 03/09/2025 3:31 PM EDT [employer] Comment: <130 Desirable 130-159 Above Desirable 160-189 Borderline High 190-219 High >= 220 Very High Fasting Specimen? Yes None 025 3:31 PM EDT [facility] [employer] Blood VENOUS BLOOD / Unknown Venipuncture / Unknown 03/09/2025 8:01 AM EDT 03/09/2025 8:01 AM EDT Allen Collins MD CHEMISTRY ORDERABLES Fin al Result [facility] [employer] [address] [facility] , [address] [place] [id number] documented in this encounter Visit Diagnoses Diagnosis Hyperlipidemia, unspecified hyperlipidemia type- Primary History of prostate cancer Personal history of malignant neoplasm of prostate Seasonal allergies Allergic rhinitis, cause unspecified documented in this encounter Administered Medications Inactive Administered Medications - up to 1 most recent administrations Medication Order MAR Action Action Date Dose Rate Site methylPREDNISolone acetate (DEPO-Medrol) injection 80 mg 80 mg, Intramuscular, ONCE, 1 dose, On Sat03/09/25 at 0800, Dx: 1. Seasonal allergiesIndications:Season al allergies Given 03/09/2025 7:58 AM EDT 80 mg Left Deltoid documented in this encounter Discontinued Medications Medication Sig Discontinue Reason Start Date End Da te rosuvastatin (CRESTOR) 20 mg Oral TabletIndications:Hyperlip idemia, unspecified hyperlipidemia type Take 1 Tablet by mouth nightly. Reorder 11/06/2024 03/09/2025 documented as of this encounter Additional Health Concerns Assessment Noted Time A fall risk assessment has been complete d for the patient 07/17/2023 1:28 PM EST documented as of this encounter Care Teams Sharepoint Engineer Relationship Specialty Start Date End Date Yuan Cosme [place] [address] PCP - General Internal Medicine 12/27/20 documented as of this encounter"
--- OUTSIDE RECORDS SUMMARY | 2025-03-09 08:00 | XMS_ITS | Encounter Summary ---
Author Organization [place] [address] Care Team Providers Care Horse Breaker Name Role Phone Yuan Cosme MD Primary Care Provider [phone] Encounter Details Date Type Department Care Team (Latest Contact Info) Description 03/09/2025 8:00 AM EDT - 03/09/2025 11:59 PM EDT Hospital Encounter [facility] [address] [place] [address] Hyperlipidemia, unspecified hyperlipidemia type Discharge Disposition: Home [...] 11/02/2024 8:34 AM EDShaun Cruz RMA * Does this person have difficulty dressing or bathing? Answer Date of Assessment Author No 11/02/2024 8:34 AM EDShaun Cruz RMA * Because of a physical, mental or emotional condition, does this person have difficulty doing errands alone such as visiting a doctor's office or shopping? Answer Date of Assessment Author No 11/02/2024 8:34 AM EDShaun Cruz RMA documented as of this encounter Mental Status * Because of a physical, mental or emotional condition, does this person have serious difficulty concentrating, remembering or making decisions? Answer Entry Date Author No 11/02/2024 8:34 AM Shaun Solis RMA documented in this encounter Medications at Time of Discharge papaverine-phentola min-alprost (TRI-MIX, [id number] 1,) 150 mg-5 mg- 50 mcg ICav [...] Info) Description 05/10/2025 3:00 PM EDT Appointment [facility] [address] [address] Allen Mccord MD [address] [place] [address] 07/01/2025 10:20 AM EST Office Visit [facility] [address] [place] [address] Rosangela Beltre MD [address] [place] [address] documented as of this encounter Goals [...] mg/dL 03/09/2025 3:31 PM EDT [facility] Albumin 4.2 3.2 - 4.6 gm/dL 03/09/2025 3:31 PM EDT [facility] Total Protein 7.1 6.4 - 8.3 gm/dL 03/09/2025 3:31 PM EDT [facility] Bili Total 0.5 0.2 - 1.4 mg/dL 03/09/2025 3:31 PM EDT [facility] ALT 17 <=41 U/L 03/09/2025 3:31 PM EDT [facility] AST 17 <=40 U/L 03/09/2025 3:31 PM EDT [facility] Alk Phos 86 40 - 129 U/L 03/09/2025 3:31 PM EDT [facility] eGFR (CKD-EPIcr 2020) 75 >=60 mL/min/1.7 3 m2 03/09/2025 3:31 PM EDT [facility] Comment:Estimated GFR was ca lculated using the CKD-EPIcr (2020) equation refit without race. The equation is recommended by the National Kidney Foundation - [place] [employer] of Nephrology Task Force. Blood VENOUS BLOOD / Unknown Venipuncture / Unknown 03/09/2025 8:01 AM EDT 03/09/2025 8:01 AM EDT us Allen Mccord MD CHEMISTRY ORDERABLES Fin al Result [facility] [address] [facility] , [address] [place] [id number] * LIPID SCREEN (03/09/2025 8:01 AM EDT) Cholesterol 144 <200 mg/dL 03/09/2025 3:31 PM EDT [facility] Comment: < 200 Desirable 200 - 239 Borderline High >= 240 High Triglyceride 43 <150 mg/dL 03/09/2025 3:31 PM EDT [facility] Comment: < 150 Normal 150 - 199 Borderline High 200 - 499 High >= 500 Very High HDL 60 >=40 mg/dL 03/09/2025 3:31 PM EDT [facility] Comment: > 60 Optimal 40 - 60 Acceptable < 40 Low LDL Calculated 74 <100 mg/dL 03/09/2025 3:31 PM EDT [facility] Comment: < 100 Optimal 100 - 129 Near or above optimal 130 - 159 Borderline High 160 - 189 High >= 190 Very High The National Institutes of Health (NIH) equation is used for all lipid panels that report calculated LDL (LDL-C). Non-HDL-C Calculated 84 <=129 mg/dL 03/09/2025 3:31 PM EDT [facility] Comment: <130 Desirable 130-159 Above Desirable 160-189 Borderline High 190-219 High >= 220 Very High Fasting Specimen? Yes None 025 3:31 PM EDT [facility] Blood VENOUS BLOOD / Unknown Venipuncture / Unknown 03/09/2025 8:01 AM EDT 03/09/2025 8:01 AM EDT Allen Mccord MD CHEMISTRY ORDERABLES Fin al Result [facility] [address] [facility] , [place] [address] documented in this encounter Visit Diagnoses Diagnosis Hyperlipidemia, unspecified hyperlipidemia type documented in this encounter Additional Health Concerns Assessment Noted Time A fall risk assessment has been complete d for the patient 07/17/2023 1:28 PM EST documented as of this encounter Care Teams Horse Breaker Relationship Specialty Start Date End Date Yuan Cosme MD [address] [place] [address] [place] [address] PCP - General Internal Medicine 12/27/20 documented as of this encounter
--- OUTSIDE RECORDS SUMMARY | 2025-04-20 07:30 | XMS_ITS | Encounter Summary ---
Author Organization [place] [address] Care Team Providers Care Hand Marker Name Role Phone Yuan Cosme MD Primary Care Provider [phone] Reason for Referral * Consultation (Routine) - Authorization Not Needed Specialty Diagnoses / Procedures Referred By Contac t Referred To Contact Neurology Diagnoses Syncope and collapse Procedures [place] OFFICE/OUTPATIENT NEW MODERATE MDM 45 MINUTES Allen Mccord MD [address] [place] [address] Phone: tel: fax: Rosangela Beltre MD [address] [place] [place] [address] Phone: tel: fax: Referral ID Status Reason Start Date Expiration Date Visits Requested Visits Authorized [id number] Authorization Not Needed 04/20/2025 04/20/2026 99 99 * EEG (Routine) - Authorization Not Needed Specialty Diagnoses / Procedures Referred By Contac t Referred To Contact Radiology Diagnoses Syncope and collapse Procedures EEG AWAKE AND ASLEEP LA ELECTROENCEPHALOGRAM W/REC AWAKE&DROWSY Allen Mccord MD [address] [place] [address] Phone: tel: fax: Referral ID Status Reason Start Date Expiration Date Visits Requested Visits Authorized [id number] Authorization Not Needed 04/20/2025 04/20/2026 1 1 * MRI/CAT Scan (Routine) - Authorized Specialty Diagnoses / Procedures Referred By Marie pantoja Referred To Contact Radiology Diagnoses Syncope and collapse Procedures MRI BRAIN W WO CONTRAST Allen Mccord MD [address] [place] [address] Phone: tel: fax: Referral ID Status Reason Start Date Expiration Date V isits Requested Visits Authorized [id number] Authorized 04/20/2025 04/20/2026 1 1 * Vascular Imaging (Routine) - Closed Specialty Diagnoses / Procedures Referred By Marie pantoja Referred To Contact Radiology Diagnoses Syncope and collapse Procedures [place] US CAROTID DUPLEX BILATERAL Allen Mccord MD [address] [place] [address] Phone: tel: fax: Referral ID Status Reason Start Date Expiration Date Visits Re quested Visits Authorized [id number] Closed 04/20/2025 04/20/2027 1 1 Reason for Visit * Reason Comments Loss of Consciousness Right leg/back inj ury Encounter Details Date Type Department Care Team (Late st Contact Info) Description 04/20/2025 7:30 AM EDT Office Visit [facility] [address] [place] [address] Allen Mccord MD [address] [place] [address] Syncope and collapse (Primary Dx) [...] passed out last Saturday and went to [facility]. Was advised to hold off on [...] Description 05/10/2025 3:[address] [facility] MRI [address] [place] [address] Allen Mccord MD [address] [place] [address] 07/01/2025 10:20 AM EST Office [place] [facility] [place] [facility] [address] [place] [id number] Rosangela Beltre MD [address] [place] [address] Scheduled Orders Name Type Priority Associated Diagnoses Orde r Schedule MRI BRAIN W WO CONTRAST Imaging Routine Syncope and collapse 1 Occurrences starting 04/20/2025 until 04/20/2026 Scheduled Referrals Name Type Priority Associated Diagnoses Orde r Schedule AMB REFERRAL TO NEUROLOGY Outpatient Referral Routine Syncope and collapse Ordered: 04/20/2025 documented as of this encounter Goals Goal Patient Goal Type Associated Problems Recent Progress Patient-Stated? Author Maintain a healthy diet, exercise regularly and maintain an ideal body weight General No Camila Purcell LPN documented as of this encounter Results * [place] US CAROTID DUPLEX BILATERAL (04/23/2025 12:35 PM [...] the bilateral vertebral artery. Allen Mccord MD [facility] VASCULAR ORDERABLES Final Result * EEG AWAKE [...] epileptiform features were seen. Reading MD Lori Hannon, DO us Allen Mccord MD IMG EEG ORDERABLES Final Result documented in this encounter Visit Diagnoses Diagnosis Syncope and collapse- Primary Syncope and collapse Syncope and collapse documented in this encounter Additional Health Concerns Assessment Noted Time A fall risk assessment has been complete d for the patient 07/17/2023 1:28 PM EST documented as of this encounter Care Teams Hand Marker Relationship Specialty Start Date End Date Yuan Cosme MD [address] [place] [address] PCP - General Internal Medicine 12/27/20 documented as of this encounter
--- OUTSIDE RECORDS SUMMARY | 2025-04-23 10:00 | XMS_ITS | Encounter Summary ---
Author Organization [place] [address] Care Team Providers Care End Worker Name Role Phone Yuan Cosme MD Primary Care Provider [phone] Reason for Referral * Vascular Imaging (Routine) - Closed Specialty Diagnoses / Procedures Referred By Curtisac kit Referred To Contact Radiology Diagnoses Syncope and collapse Procedures [facility] CAROTID DUPLEX BILATERAL Allen Mccord MD [address] [place] [address] Phone: tel: fax: Referral ID Status Reason Start Date Expiration Date Visits Re quested Visits Authorized [id number] Closed 04/20/2025 04/20/2027 1 1 Reason for Visit * Vascular Imaging (Routine) - Closed Specialty Diagnoses / Procedures Referred By Marie pantoja Referred To Contact Radiology Diagnoses Syncope and collapse Procedures [facility] CAROTID DUPLEX BILATERAL Allen Mccord MD [address] [place] [address] Phone: tel: fax: Referral ID Status Reason Start Date Expiration Date Visits Re quested Visits Authorized [id number] Closed 04/20/2025 04/20/2027 1 1 Encounter Details [...] at Time of Discharge papaverine-phentola min-alprost (TRI-MIX, [id number] 1,) 150 mg-5 mg- 50 mcg ICav Recon SolnIndications:Pro state cancer (HCC) 0.2-0.5 mL by Intracavernosal route. 4 rosuvastatin (CRESTOR) 20 mg Oral TabletIndications:H yperlipidemia, unspecified hyperlipidemia type Take 1 Tablet by mouth nightly. 90 Tablet 1 5 WEGOVY 1.7 mg/0.75 mL SubQ Pen InjectorIndications :Obesity, Class I, BMI 30-34.9 INJECT 1.7 MG UNDER THE SKIN ONCE WEEKLY 3 mL 5 documented as of this encounter Discharge Disposition Disposition Code Departure Means Destination Home or Self Care documented in this encounter Plan of Treatment Upcoming Encounters Date Type Department Care Team (Late st Contact Info) Description 05/10/2025 3:00 PM EDT Appointment [facility] [address] [place] [address] Allen Mccord MD [address] [facility] [place] [address] 07/01/2025 10:20 AM EST Office Visit [facility] Neurology [facility] [address] [place] [address] Rosangela Beltre MD [address] [place] [address] documented as of this encounter Goals Goal Patient Goal Type Associated Problems Recent Progress Patient-Stated? Author Maintain a healthy diet, exercise regularly and maintain an ideal body weight General No Camila Purcell LPN documented as of this encounter Procedures Procedure Name Priority Date/Time Associated Diagnosis Comments [facility] CAROTID DUPLEX BILATERAL Routine 04/23/2025 12:35 PM EDT Syncope and collapse documented in this encounter Results * [facility] US CAROTID DUPLEX BILATERAL (04/23/2025 12:35 PM [...] documented as of this encounter Care Teams End Worker Relationship Specialty Start Date End Date Yuan Cosme MD [address] [place] [address] [place] [address] PCP - General Internal Medicine 12/27/20 documented as of this encounter
--- OUTSIDE RECORDS SUMMARY | 2025-04-23 10:00 | XMS_ITS | Encounter Summary ---
Author Organization [place] [address] Care Team Providers Care Swimming Professor Name Role Phone Yuan Cosme MD Primary Care Provider [phone] Reason for Referral * EEG (Routine) - Authorization Not Needed Specialty Diagnoses / Procedures Referred By Contac t Referred To Contact Radiology Diagnoses Syncope and collapse Procedures EEG AWAKE AND ASLEEP AR ELECTROENCEPHALOGRAM W/REC AWAKE&DROWSY Allen Mccord MD [address] [place] [address] Phone: tel: fax: Referral ID Status Reason Start Date Expiration Date Visits Requested Visits Authorized [id number] Authorization Not Needed 04/20/2025 04/20/2026 1 1 Reason for Visit * EEG (Routine) - Authorization Not Needed Specialty Diagnoses / Procedures Referred By Marie pantoja Referred To Contact Radiology Diagnoses Syncope and collapse Procedures EEG AWAKE AND ASLEEP AR ELECTROENCEPHALOGRAM W/REC AWAKE&DROWSY Allen Mccord MD [address] [place] [address] Phone: tel: fax: Referral ID Status Reason Start Date Expiration Date Visits Requested Visits Authorized [id number] Authorization Not Needed 04/20/2025 04/20/2026 1 1 [...] at Time of Discharge papaverine-phentola min-alprost (TRI-MIX, [id number] 1,) 150 mg-5 mg- 50 mcg ICav [...] Info) Description 05/10/2025 3:00 PM EDT Appointment [facility] [address] [place] [address] Allen Mccord MD [address] [facility] [address] 07/01/2025 10:20 AM EST Office Visit [facility]rology [facility] [address] [place] [address] Rosangela Beltre MD [address] [place] [address] documented as of this encounter Goals Goal [...] were seen. Reading MD Lori Hannon, DO Allen Mccord MD IMG EEG ORDERABLES Final Result documented in this encounter Visit Diagnoses Diagnosis Syncope and collapse documented in this encounter Additional Health Concerns Assessment Noted Time A fall risk assessment has been complete d for the patient 07/17/2023 1:28 PM EST documented as of this encounter Care Teams Swimming Professor Relationship Specialty Start Date End Date Yuan Cosme MD [address] [place] [address] PCP - General Internal Medicine 12/27/20 documented as of this encounter
--- NOTE | 2025-04-29 | CA_ITS ---
APPROVED REPORT Exam: Pharmacologic Technologist: Destini Polanco Ht: 6 ft 2 in Wt: 218 lbs BSA: 2.25 m2 HR: 65 bpm BP: 129/73 mmHg Rhythm: SR Medical History Cardiac Risk Factors: HTN, Hyperlipidemia, Smoking Stress Test Details HR Resting HR: 65 bpm Max Heart Rate (APMHR): 148.679455 bpm Target HR (85% APMHR): 125.682196 bpm Recovery HR: 81 bpm BP Resting BP: 129.0/73.0 mmHg Recovery BP: 118.0/79.0 mmHg ECG Resting ECG: SR Stress ECG Conclusion During lexiscan pt experinced no symptoms. No arrhythmias noted. Less than .5mm upsloping ST segment changes. Nondiagnsotic ECG/lexiscan. Electronically signed by : Licha Anderson MD 05/01/2025 00:12:25
--- OUTSIDE RECORDS SUMMARY | 2025-04-29 06:49 | XMS_ITS | Encounter Summary ---
Author Organization [place] [address] Care Team Providers Care Executive Chef Name Role Phone Yuan Cosme MD Primary Care Provider [phone] Encounter Details Date Type Department Care Team (Latest Contact Info) Description 03/09/2025 Results Follow-Up [facility] [address] [place] [address] Yuan Cosme MD [address] [place] [address] LIPID SCREEN, COMPREHENSIVE METABOLIC PANEL Social [...] Info) Description 05/10/2025 3:00 PM EDT Appointment [facility] [address] [place] [address] Allen Mccord MD [address] [place] [address] 07/01/2025 10:20 AM EST Office [facility] [address] [place] [address] Rosangela Beltre MD [address] [place] [address] documented as of this encounter Goals Goal [...] documented as of this encounter Care Teams Executive Chef Relationship Specialty Start Date End Date Yuan Cosme MD [address] [place], [place] [address] PCP - General Internal Medicine 12/27/20 documented as of this encounter
--- OUTSIDE RECORDS SUMMARY | 2025-04-29 06:49 | XMS_ITS | Encounter Summary ---
Author Organization [place] [address] Care Team Providers Care Mobile Sales Assistant Name Role Phone Yuan Cosme MD Primary Care Provider [phone] Reason for Visit * Reason Comments Medication Refill Encounter Details Date Type Department Care Team (Late st Contact Info) Description 04/21/2025 Refill [facility] [address] [place] [address] Yuan Cosme MD [address] [place] [address] Medication Refill Social History Tobacco Use Types Packs/Day Years [...] of Assessment Author No 11/02/2024 8:34 AM EDJuliette CalShaun RMA * Does this person have difficulty dressing or bathing? Answer Date of Assessment Author No 11/02/2024 8:34 AM EDT CalShaun RMA * Because of a physical, mental or emotional condition, does this person have difficulty doing errands alone such as visiting a doctor's office or shopping? Answer Date of Assessment Author No 11/02/2024 8:34 AM EDT CalShaun love RMA documented as of this encounter Mental Status * Because of a physical, mental or emotional condition, does this person have serious difficulty concentrating, remembering or making decisions? Answer Entry Date Author No 11/02/2024 8:34 AM EDJuliette CalShaun kolbAMANDA documented in this encounter Ordered Prescriptions Prescription Sig Dispense Quantity Refills Last Filled Start Date End Date WEGOVY 1.7 mg/0.75 mL SubQ Pen InjectorIndications :Obesity, Class I, BMI 30-34.9 INJECT 1.7 MG UNDER THE SKIN ONCE WEEKLY 3 mL 04/22/2025 documented in this encounter Plan of Treatment Upcoming Encounters Date Type Department Care Team (Late st Contact Info) Description 05/10/2025 3:00 PM EDT Appointment [facility] [address] [place] [address] Allen Mccord MD [address] [place] [address] 07/01/2025 10:20 AM EST Office Visit [facility] [address] [place] [address] Rosangela Beltre MD [address] [place] [address] documented as of this encounter Goals [...] End Da te semaglutide, weight loss, (WEGOVY) 1.7 mg/0.75 mL SubQ Pen InjectorIndications:Obes ity, Class I, BMI 30-34.9 Inject 1.7 mg under the skin once a week for 4 doses. 03/22/2025 04/22/2025 documented as of this encounter Additional Health Concerns Assessment Noted Time A fall risk assessment has been complete d for the patient 07/17/2023 1:28 PM EST documented as of this encounter Care Teams Mobile Sales Assistant Relationship Specialty Start Date End Date Yuan Cosme MD [address] [place] [id number] PCP - General Internal Medicine 12/27/20 documented as of this encounter
--- OUTSIDE RECORDS SUMMARY | 2025-04-29 06:49 | XMS_ITS | Clinical Summary ---
Author Organization [facility] Address [address] [place] [address] Care Team Providers Care Catering Director Name Role Phone Lai Rosa MD Primary Care Provider [phone] Allergies No known active allergies Medications Wegovy [...] Description 02/16/2025 8:00 AM EDT Office Visit [facility] [address] [place] [address] Darion Hebert MD Prostate cancer ([facility] (Primary Dx) 02/16/2025 Orders Only Medical Office Building Urology [address] [facility], [address] [place] [address] Darion Heebrt MD Prostate cancer ([facility] (Primary Dx) 02/16/2025 Travel from Last 3 [...] Description 11/10/2025 8:10 AM EDT Office Visit [facility] Urology [address] [place] [address] Starr Bowen APRN, DNP [address] [place] [address] 02/16/2026 7:00 AM EDT Clinical Support [facility] [address] [place] [address] 02/16/2026 8:10 AM EDT Office Visit [facility] Urology [address] [place] [address] Starr Bowen APRN, DNP [address] [place] [address] Health Maintenance Due Date Last Done Comments [facility]-Hepatitis C Screening 1952 [facility]-/Child/Adol SDOH Screenings 1952 [facility]- SDOH Screenings 1970 [facility]-Adult SDOH Screenings 1970 CT Colonography 1997 Colonoscopy 1997 FIT-DNA 1997 FIT 1997 FOBT 1997 Sigmoidoscopy 1997 [facility]-Colorectal Cancer Screening 1997 [id number] Vaccine ( season) 2025 08/22/2022, 07/06/2021, 10/07/2020 [...] - 6.50 ng/mL 02/16/2025 9:04 AM EDT [facility] Blood Venous blood specimen / Unknown Venipuncture / Unknown 02/16/2025 7:36 AM EDT 02/16/2025 7:36 AM EDT Narrative [facility] - 02/16/2025 9:04 AM EDT Performed by Sera electrochemiluminescent immunoassay which is standardized against the PSA Gleason Reference Standard (WHO 96/670). Results obtained with different test methods or kits cannot be used interchangeably. us Darion Hebert MD LAB BLOOD ORDERABLES Final Re sult [facility] [address] [place] [address] from Last 3 Months Insurance [employer] Care Teams Catering Director Relationship Specialty Start Date End Date Lai Rosa MD [address] [place] [address] PCP - General 12/09/20
--- OUTSIDE RECORDS SUMMARY | 2025-04-29 06:49 | XMS_ITS | Clinical Summary ---
Author Organization [facility] Address [address] [place] [address] Phone Care Team Providers Care Hospital Intern Name Role Phone Yuan Cosme MD Primary Care Provider [phone] Allergies No known active allergies Medications papaverine-phent olamin-alprost (TRI-MIX, PAPAVRN-PHNTLMN- PGE1,) 150 mg-5 mg- 50 mcg ICav Recon SolnIndications: Prostate cancer (HCC) 0.2-0.5 mL by Intracavernosal route. 024 Active rosuvastatin (CRESTOR) 20 mg Oral TabletIndication s:Hyperlipidemia , unspecified hyperlipidemia type Take 1 Tablet by mouth nightly. 90 Tablet 1 025 Active WEGOVY 1.7 mg/0.75 mL SubQ Pen InjectorIndicati ons:Obesity, Class I, BMI 30-34.9 INJECT 1.7 MG UNDER THE SKIN ONCE WEEKLY 3 mL 025 Active semaglutide, weight loss, (WEGOVY) 1.7 mg/0.75 mL SubQ Pen InjectorIndicati ons:Obesity, Class I, BMI 30-34.9 Inject 1.7 mg under the skin once a week for 4 doses. 3 mL 025 2024 Discontinued Active Problems Patient Care Coordination No te Formatting of this note migh t be different from the original. [facility] audit completed by Tamara Steven RN on [...] Encounters Date Type Department Care Team Description 04/23/2025 10:00 AM EDT - 04/23/2025 11:59 PM EDT Hospital Encounter [facility] [address] [place] [address] Allen Mccord MD Syncope and collapse Discharge Disposition: Home or Self Care 04/23/2025 10:00 AM EDT Hospital Encounter [facility] [address] [place] [address] Allen Mccord MD Syncope and collapse Discharge Disposition: Home or Self Care 04/23/2025 Results Follow-Up [facility] [address] [place], [place] [address] Allen Mccord MD EEG AWAKE AND ASLEEP, [facility] CAROTID DUPLEX BILATERAL 04/21/2025 Refill [facility] [place] [facility] [address] [place] [address] Yuan Cosme MD Medication Refill 04/20/2025 7:30 AM EDT Office Visit [facility] [address] [place] [address] Allen Mccord MD Syncope and collapse (Primary Dx) 03/22/2025 [address] [facility] [place] [address] Yuan Cosme MD Refill (wegovy-not pended) 03/09/2025 8:00 AM EDT - 03/09/2025 11:59 PM EDT Hospital Encounter [facility] [place] [id number] Hyperlipidemia, unspecified hyperlipidemia type Discharge Disposition: Home or Self Care 03/09/2025 7:50 AM EDT Office Visit [facility] [place] [address] Allen Mccord MD Hyperlipidemia, unspecified hyperlipidemia type (Primary Dx); History of prostate cancer; Seasonal allergies 03/09/2025 Results Follow-Up [address] [address] Yuan Cosme MD LIPID SCREEN, COMPREHENSIVE METABOLIC PANEL 02/15/[address] [address] Yuan Cosme MD Medication Management from Last 3 Months Immunizations Immunization Administration Dates Next Due Influenza Vaccine, Unspecified Formulation 05/13 [employer] SARS-CoV-2 Bivalent B ooster Vaccine 12+ Years ([place]) 08/22/2022 Pneumococcal Conjugate Vaccine 13 Valent 019 Pneumococcal Polysaccharide 23 Valent 09/02/2019 Tdap 01/03/2016,02/19/2008 Zoster 01/09/2013 Zoster Recombinant 05/13/2019,11/20/2018 Surgical History Surgery Date Site/Laterality Comments PROSTATE SURGERY COLONOSCOPY SHOULDER ARTHROSCOPY 07/11/2015 Shoulder/Left LEFT SHOULDER ARTHROSCOPY ROTATOR CUFF REPAIR ARTHROSCOPIC SUBACROMIAL DECOMPRESSION PONDERAY ; Surgeon: Danny Beltre MD; Location: [facility]; Service: Orthopedics Medical devices from this surgery are in the Medical Devices section. ANKLE SURGERY 12/26/2017 Ankle/Left LEFT ANKLE DISTAL TIBIA FRACTURE OPEN REDUCTION INTERNAL FIXATION ; Surgeon: Jack Buck MD; Location: [facility]; Service: Orthopedics Medical devices from this surgery [...] Pulse 66 04/20/2025 7:31 AM EDT Temperature 36.8 C (98.2 F) 03/09/2025 7:40 AM EDT Respiratory Rate 18 03/09/2025 7:40 AM EDT Oxygen Saturation 97% 04/20/2025 7:31 AM EDT Inhaled Oxygen Concentration - - Weight 99.8 kg (220 lb) 04/20/2025 7:31 AM EDT Height 188 cm (6' 2 ) 04/20/2025 7:31 AM EDT Body Mass Index 28.25 04/20/2025 7:31 AM EDT Plan of Treatment Upcoming Encounters Date Type Department Care Team (Late st Contact Info) Description 05/10/2025 3:00 PM EDT Appointment [facility] MRI [address] [address] Allen Mccord MD [address] [place] [address] 07/01/2025 10:20 AM EST Office Visit [facility] [address] [place] [address] Rosangela Beltre MD [address] [place] [address] Health Maintenance Due Date Last Done Comments Cologuard 1997 FIT 1997 Sigmoidoscopy 1997 Virtual Colonography 1997 Colon Cancer Screening 10/16/2024 Colonoscopy 10/16/2024 10/16/2021, 02/27, 03/24/2018, Additional history exists COVID-19 Vaccine (2024- season) 2025 08/22/2022 Influenza Vaccine (#1) 2025 [...] Purcell LPN Medical Devices Implanted Type Area Boring Machine Operator Production Device Identifier Shelf Expiration Date Model / Serial / Lot [employer]mont Y-Knot Rc - [id number] Implanted:Qty: 1 on 07/11/2015 by Danny Beltre MD at [facility] Left: Shoulder CONMED:[employer]VAT[employer] [id number] 04/27/2020 YR03 / / [id number] [employer] Poplok 4.5mm - [id number] Implanted:Qty: 1 on 07/11/2015 by Danny Beltre MD at [facility] Left: Shoulder CONMED:LINVATEC [id number] 05/14/2020 [facility]-4500 / / [id number] [employer] [place]oplok 4.5mm - [id number] Implanted:Qty: 1 on 07/11/2015 by Danny Beltre MD at [facility] Left: Shoulder CONMED:LIN[employer]AT[employer] [id number] 05/14/2020 [facility]-4500 / / [id number] Plate Bn Axsos 3 Ti L227 Mm Tibia Left Distal Medial 14hole - [id number] Implanted:Qty: 1 on 12/26/2017 by Jack Buck MD at [facility] Left: Ankle MARIA TERESA:OR[employer] [id number] / / Plate Tubular One-Third 8hole/L95mm - [id number] Implanted:Qty: 1 on 12/26/2017 by Jack Buck MD at [facility] Left: Ankle [employer] [id number] / / Screw Bone Full Thread T10 [id number] - [id number] Implanted:Qty: 1 on 12/26/2017 by Jack Buck MD at [facility] Left: Ankle [employer] [id number] / / Screw Bone Full Thread T10 3.5mm X L16mm - [id number] Implanted:Qty: 2 on 12/26/2017 by Jack Buck MD at [facility] Left: Ankle [employer] [id number] / / Screw Bone T10 Full Thread 3.5mm/L18mm - [id number] Implanted:Qty: 2 on 12/26/2017 by Jack Buck MD at [facility] Left: Ankle [employer] [id number] / / Screw Locking Full Thread T10 3.5mm X L18mm - [id number] Implanted:Qty: 1 on 12/26/2017 at [facility] Left: Ankle [employer] [id number] / / Screw Locking Full Thread T10 3.5mm X L16mm - [id number] Implanted:Qty: 1 on 12/26/2017 at [facility] Left: Ankle [employer] [id number] / / Screw Cortex Ti 3.5mm X 30mm - [id number] Implanted:Qty: 4 on 12/26/2017 by Jack Buck MD at [facility] Left: Ankle [employer] [id number] / / Screw Cortex Ti 3.5mm X 40mm - [id number] Implanted:Qty: 1 on 12/26/2017 by Jack Buck MD at [facility] Left: Ankle [employer] [id number] / / Screw Cortex Ti 3.5x28mm - [id number] Implanted:Qty: 1 on 12/26/2017 by Jack Buck MD at [facility] Left: Ankle [employer] [id number] / / Screw Locking 4.0mm X L44mm - [id number] Implanted:Qty: 2 on 12/26/2017 by Jack Buck MD at [facility] Left: Ankle [employer] [id number] / / Screw Locking 4.0mm X L40mm - [id number] Implanted:Qty: 1 on 12/26/2017 by Jack Buck MD at [facility] Left: Ankle [employer] [id number] / / Screw Cancellous Ti 4.0 X L48mm Full Thread - [id number] Implanted:Qty: 1 on 12/26/2017 by Jack Buck MD at [facility] Left: Ankle [employer] [id number] / / Procedures Procedure Name Priority Date/Time Associated Diagnosis Comments [facility] CAROTID DUPLEX BILATERAL Routine 04/23/2025 12:35 PM EDT Syncope and collapse EEG AWAKE AND ASLEEP Routine 04/23/2025 11:32 AM EDT Syncope and collapse COMPREHENSIVE METABOLIC PANEL Routine 03/09/2025 8:01 AM [...] Recently Relevant to Health Maintenance Results * [facility] CAROTID DUPLEX BILATERAL (04/23/2025 12:35 PM EDT) [...] Mccord MD IMG EEG ORDERABLES Final Result * LIPID SCREEN (03/09/2025 8:01 AM EDT) Cholesterol 144 <200 mg/dL 03/09/2025 3:31 PM EDT [facility] Comment: < 200 Desirable 200 - 239 Borderline High >= 240 High Triglyceride 43 <150 mg/dL 03/09/2025 3:31 PM EDT [facility] Comment: < 150 Normal 150 - 199 Borderline High 200 - 499 High >= 500 Very High HDL 60 >=40 mg/dL 03/09/2025 3:31 PM EDT [facility] Comment: > 60 Optimal 40 - 60 Acceptable < 40 Low LDL Calculated 74 <100 mg/dL 03/09/2025 3:31 PM EDT [employer] [facility] Comment: < 100 Optimal 100 - 129 [...] None 025 3:31 PM EDT [facility] Blood VENOUS BLOOD / Unknown Venipuncture / Unknown 03/09/2025 8:01 AM EDT 03/09/2025 8:01 AM EDT us Allen Mccord MD CHEMISTRY ORDERABLES Fin al Result [facility] [address] [facility] , [place] [address] * COMPREHENSIVE METABOLIC PANEL (03/09/2025 8:01 AM [...] gm/dL 03/09/2025 3:31 PM EDT [facility] Bili Total 0.5 0.2 - 1.4 mg/dL 03/09/2025 3:31 PM EDT [facility] ALT 17 <=41 U/L 03/09/2025 3:31 PM EDT [facility] AST 17 <=40 U/L 03/09/2025 3:31 PM EDT [facility] Alk Phos 86 40 - 129 U/L 03/09/2025 3:31 PM EDT [facility] eGFR (CKD-EPIcr 2020) 75 >=60 mL/min/1.7 3 m2 03/09/2025 3:31 PM EDT [facility] Comment:Estimated GFR was ca lculated using the CKD-EPIcr (2020) equation refit without race. The equation is recommended by the National Kidney Foundation - [place] Society of Nephrology Task Force. Blood VENOUS BLOOD / Unknown Venipuncture / Unknown 03/09/2025 8:01 AM EDT 03/09/2025 8:01 AM EDT us Allen Mccord MD CHEMISTRY ORDERABLES Fin al Result [facility] [address] [facility], [address] [place] [id number] * GMED COLONOSCOPY (10/16/2021 12:40 PM EDT) 10/16/2021 12:4 0 PM EDT Impressions [facility] - 10/16/2021 1:16 PM EDT Diverticulosis [...] Stiles MD GI PROCEDURE ORDERABLES Final Result [facility] [address] [place] [address] * HEPATITIS C ANTIBODY - SCREENING (08/19/2018 1:26 PM EST) Hep C Ab Non-Reactiv e Non-Reacti ve 08/19/2018 8:06 PM EST [facility] Blood VENOUS BLOOD / Unknown Venipuncture / Unknown 08/19/2018 1:26 PM EST 08/19/2018 1:27 PM EST us Lai Rosa MD HEMATOLOGY ORDERABLES Fin al Result [facility] [address] [facility], [place] [address] from Last 3 Months or Most Recently Relevant to Health Maintenance Insurance [employer]ERS [address] [place], [place] [id number] [employer] MR [employer] MR J[employer]OMERS MR Advance Directives For more information, please contact: [phone] * Full Code (Latest Code Status on File) Date Activated Date Inactivated Comments 09/08/2015 11:27 AM 09/08/2015 4:20 PM * Full Code Date Activated Date Inactivated Comments 07/11/2015 9:59 AM 07/11/2015 2:40 PM Care Teams Hospital Intern Relationship Specialty Start Date End Date Yuan Cosme MD [address] [place] [address] PCP - General Internal Medicine 12/27/20
--- OUTSIDE RECORDS SUMMARY | 2025-04-29 06:49 | XMS_ITS | Clinical Summary ---
Author Organization [facility] Address [address], [address] [place] [address] Care Team Providers Care Crosscutter Name Role Phone Lai Rosa MD Primary Care Provider Un available Social History Tobacco Use Types Packs/Day Years Used Date Smoking Tobacco: Never Assessed Sex and Gender Information Value Date Recorded Sex Assigned at Not on file Legal Sex Male 11:49 AM EDT Gender Identity Not on file Sexual Orientation Not on file Plan of Treatment Not on file Insurance Care Teams Crosscutter Relationship Specialty Start Date End Date Lai Rosa MD PCP - General 05/25/16
--- OUTSIDE RECORDS SUMMARY | 2025-04-29 06:49 | XMS_ITS | Encounter Summary ---
Author Organization [place] [address] Care Team Providers Care Feed Manager Name Role Phone Yuan Cosme MD Primary Care Provider [phone] Reason for Visit * Reason Onset Date Comments Results 04/23/2025 EEG AWAKE AND LEEP04/23/25 Encounter Details Date Type Department Care Team (Late st Contact Info) Description 04/23/2025 Results Follow-Up [facility] [address] [place] [address] Allen Mccord MD [address] [place] [address] EEG AWAKE AND ASLEEP, [facility] CAR[facility] Social History Tobacco Use Types Packs/Day Years [...] Shaun Mccall RMA documented in this encounter Miscellaneous Notes * Telephone Encounter - Elvia Wilkins MA - 04/23/2025 1:44 PM EDT Select the most appropriate reason for this telephone message: Patient Calling for Results Patient called for results on Other EEG AWAKE AND ASLEEP Which Provider ordered the test? Allen Mccord MD Date of test: 04/23/25 Advised patient of: normal result. Patient Instructions/ Questions: n/a Medications Ordered/Pended (if yes, list medication): No Medications/Orders Needed (if yes, list orders): No Pharmacy Location Verified: No Other: Please put in the patient results note that patient is aware of the following results Allen Mccord MD 04/23/2025 12:29 PM EDT normal documented in this encounter Plan of Treatment Upcoming Encounters Date Type Department Care Team (Late st Contact Info) Description 05/10/2025 3:[address] [facility] [address] [address] Allen Mccord MD [address] [place] [address] 07/01/2025 10:20 AM EST Office Visit [facility] [address] [place] [address] Rosangela Beltre MD [address] [address] documented as of this encounter Goals [...] documented as of this encounter Care Teams Feed Manager Relationship Specialty Start Date End Date Yuan Cosme MD [address] [place] [address] PCP - General Internal Medicine 12/27/20 documented as of this encounter
--- OUTSIDE RECORDS SUMMARY | 2025-04-29 06:49 | XMS_ITS | Clinical Summary ---
Author Organization [facility] Address [address] [place] [address] Phone Care Team Providers Care Termite Control Representative Name Role Phone Tom PATE, Hernan Unavailable [phone] Conditions or Problems Problem Name Problem Code Onset Date Status Entry Date Provider Comment Standard Description Annotate LUMBAR RADICULOPATH Y 344930269 (SNOMED CT) 08/04 Active 08/04 Christopher Salgado Lumbar radiculopathy BACK PAIN, LOW 376269330 (SNOMED CT) 08/04 Active 08/04 Christopher Salgado Low back pain ENCOUNTER FOR OTHER SPECIFIED SURGICAL AFTERCARE Z48.89 (ICD-10-CM ) 10/18 Active 10/18 Hubert Rowell MD Encounter for other specified surgical aftercare PREOPERATIVE EXAM 721099105 (SNOMED CT) 09/27 Active 09/28 Ericka Sanchez MA Pre-surgery evaluation HERNIATED LUMBAR DISC 545321203 (SNOMED CT) 08/07 Active 08/07 Hubert Rowell MD Prolapsed lumbar intervertebral disc OVERWEIGHT 807880251 (SNOMED CT) 08/07 Active 08/07 Neisha Bello MA Overweight Take Note of COUGH, CHRONIC 04547553 (SNOMED CT) 08/05 Active 08/05 Nel Lott MA Chronic cough NECK PAIN 75232094 (SNOMED CT) 08/05 Active 08/05 Hernan Santos NP Neck pain SPONDYLOSIS, LUMBAR 305949649 (SNOMED CT) 08/05 Active 08/05 Hernan Santos NP Lumbosacral spondylosis SPONDYLOSIS, CERVICAL M47.812 (ICD-10-CM ) 08/05 Active 08/05 Hernan Santos WHIPPER Spondylosis without myelopathy or radiculopathy, cervical region Medications Medication Instructions Start Date Stop Date Generic Name NDC Provider MEDROL 4 MG TBPK Take as directed : Hold all NSAIDs while using steroids methylprednisolone [id number] Hernan Santos NP MEDROL 4 MG TBPK as directed 08/04 METHYLPREDNISOLONE 92562573838 Hubert Rowell MD MELOXICAM TABS Non-[facility] 08/04 MELOXICAM TABS 00956829495 Neisha Bello MA SIMVASTATIN TABLET [facility] 08/04 SIMVASTATIN TABS 16463011755 Neisha Bello MA FLEXERIL 10 MG TABS 1 po tid 08/07 CYCLOBENZAPRINE HCL 89459389736 Neisha Bello MA VOLTAREN 75 MG TBEC 1 po bid 08/07 DICLOFENAC SODIUM 25336772477 Neisha Bello MA VYTORIN TABLET [facility] 08/07 EZETIMIBE-SIMVASTATI N TABS 98991504989 Neisha Bello MA VYTORIN TABLET [facility] 09/13 EZETIMIBE-SIMVASTATI N TABS [id number] Nel Lott MA VOLTAREN 75 MG TBEC 1 po bid 08/07 DICLOFENAC SODIUM 26755483786 Hernan Santos WHIPPER FLEXERIL 10 MG TABS 1 po tid 08/07 CYCLOBENZAPRINE HCL [id number] Hernan Santos NP Medications Administered No information [...]
--- OUTSIDE RECORDS SUMMARY | 2025-04-29 06:49 | XMS_ITS | Encounter Summary ---
Author Organization [place] [address] Care Team Providers Care Gaming Cashier Name Role Phone Yuan Cosme MD Primary Care Provider [phone] Reason for Visit * Reason Onset Date Comments Refill 03/22/2025 wegovy-not pende d Encounter Details Date Type Department Care Team (Late st Contact Info) Description 03/22/2025 Telephone [facility] [address] [place] [address] Yuna Cosme MD [address] [place] [address] Refill (wegovy-not pended) Social History Tobacco [...] Shaun Mccall RMA documented in this encounter Ordered Prescriptions Prescription Sig Dispense Quantity Refills Last Filled Start Date End Date semaglutide, weight loss, (WEGOVY) 1.7 mg/0.75 mL SubQ Pen InjectorIndication s:Obesity, Class I, BMI 30-34.9 Inject 1.7 mg under the skin once a week for 4 doses. 3 mL 03/22/2025 04/22/2025 documented in this encounter Miscellaneous Notes * [...] w/ prescribing provider: n/a Pharmacy & Location: [facility] [id number] [place] [address] [address] [phone] [[id number]] Return Method of Communication: Phone Call Additional Information: didn't pend-show that medication has ened documented in this encounter Plan of Treatment Upcoming Encounters Date Type Department Care Team (Late st Contact Info) Description 05/10/2025 3:00 PM EDT Appointment [facility] [address] [place] [address] Allen Mccord MD [address] [place] [address] 07/01/2025 10:20 AM EST Office Visit [facility] [address] [place] [address] Rosangela Beltre MD [address] [place] [address] documented as of this encounter Goals [...] documented as of this encounter Care Teams Gaming Cashier Relationship Specialty Start Date End Date Yuan Cosme MD [address] [place] [id number] PCP - General Internal Medicine 12/27/20 documented as of this encounter
--- NOTE | 2025-04-29 07:00 | NM_ITS ---
APPROVED REPORT Exam: Nuclear Stress Test Indication: syncope Patient Location: Outpatient Stress Tech: Destini Polanco [place] Tech:Amanda BeeJUVENAL RT(R)(N) Ht: 6 ft 2 in Wt: 215 lbs HR: 64 bpm BP: 129/73 mmHg BSA: 2.24 m2 TID: 1.05 BMI: 27.6 History: syncope Procedure: Patient received 0.4 mg of intravenous Lexiscan, resting heart rate 64 bpm, resting blood pressure 129/73 mmHg, with Lexiscan maximum heart rate achieved was 92 bpm which is 85 % of the maximum predicted heart rate and blood pressure was 128/74 mmHg. With Lexiscan, patient denied any complaint of chest pain. Cardiac Stress and Resting SPECT Images: Cardiac Stress and Resting SPECT images were obtained using technetium 99m Myoview 32.3 mCi stress and 10.48 mCi at rest. Resting and stress imaging in supine positions demonstrate small sized, mild, tapered perfusion defect in the basal inferior LV wall. This is no longer visualized with prone stress imaging. Findings are suggestive of diaphragmatic attenuation. Gated imaging demonstrates low-normal global LV systolic function. LVEF is calculated at 50%. Conclusion: Diaphragmatic attenuation is present. No evidence of fixed or reversible perfusion defects. Gated imaging demonstrates low-normal global LV systolic function. LVEF is calculated at 50%. Electronically signed by : Licha Anderson MD 05/01/2025 23:51:40
[2025-04-29 08:15] VITALS: BP 129/73; PULSE 65; RESP 14
[2025-04-29] MEDS: ISOTOPE MYOVIEW (PER STUDY) 1 DOSE IV (09:45)
[2025-04-29] MEDS: SODIUM CHLORIDE 0.9% 10ML SYR (RAD ONLY) 10 ML IV ×2 (09:45)
--- NOTE | 2025-04-29 09:45 | CA_ITS ---
APPROVED REPORT EXAM: Comprehensive 2D, Doppler, and color-flow Echocardiogram Manufacturing Assembler: Amanda Woodward CRT Ht: 6 ft 2 in Wt: 218lbs BSA: 2.25 BP: 143/81 mmHg Indications: Chest Pain, Syncope, Hyperlipidemia, Hypertension/HDD, dilated aorta 2D Dimensions LA Volume 24.30 mL LA Volume Index 10.50 mL/m2 (M/F) 16-34 M-Mode Dimensions RVDd 1.97 cm (0.9-2.6) LA Diam 2.84 cm (1.9-4.0) LVDd 4.61 cm (3.5-5.7) LVDs 3.00 cm (3.5-5.7) IVSd 2.18 cm (0.6-1.1) PWd 1.00 cm (0.6-1.1) EF (Teich) 64.20% FS 34.90% EDV (Teich) 97.80 mL TAPSE 2.58 (<1.7) ESV (Teich) 35.00 mL LV Diastology E Decel Time 210 (160-240 msec) E/A Ratio 0.82 MED A' 12.60 cm/s LAT A' 12.10 cm/s Aortic Valve AI PHT 468.00 ms AO Peak GR. 3.90 mmHg Mitral Valve MV A Velocity 63.0 (40-130 cm/s) E/A Ratio 0.82 Pulmonary Valve PV Peak Velocity 125.0 (50-150 cm/s) Tricuspid Valve TR P. Velocity 280.00 cm/s RAP Estimate 10.00 mmHg RVSP 41.30 mmHg Left Ventricle The left ventricle is normal size. Left ventricular systolic function is normal. The left ventricular ejection fraction is within the normal range. There is increased left ventricular wall thickness. There is normal LV segmental wall motion. Transmitral Doppler flow pattern suggests impaired LV relaxation. LVEF is 55%. Right Ventricle The right ventricle is mildly dilated. The right ventricular systolic function is normal. Atria The left atrium size is normal. The right atrium is mildly dilated. There is no color Doppler evidence of interatrial shunt. Aortic Valve The aortic valve is mildly thickened. There is no hemodynamically significant aortic valvular stenosis. No aortic regurgitation is present. Mitral Valve The mitral valve is normal in structure. No evidence of mitral valve stenosis. Mild mitral regurgitation is present. Tricuspid Valve The tricuspid valve leaflets are thin and pliable. Trace tricuspid regurgitation. There is insufficient TR jet to estimate RVSP. Pulmonic Valve The pulmonary valve is grossly normal in structure. Trace pulmonic valve regurgitation is present. Great Vessels The aortic root is normal in size. IVC is normal in size and collapses >50% with inspiration. Pericardium There is no pericardial effusion. Other Information Study Quality: Fair Conclusion Normal biventricular systolic function. Mild RV dilation. Mild RA dilation. Mild MR. Electronically signed by : Licha Anderson MD 04/30/2025 23:12:49
== END 2025-04-29 23:59 | disposition home or self-care (01) ==
LOC: RAD 06:47
PROVIDERS: PCP Family Medicine; Visit Provider Nurse Practitioner Family
DX: I34.0 Nonrheumatic mitral (valve) insufficiency (principal); I11.9 Hypertensive heart disease without heart failure; I77.810 Thoracic aortic ectasia; R55 Syncope and collapse; R20.0 Anesthesia of skin; R20.2 Paresthesia of skin; E78.5 Hyperlipidemia, unspecified; F17.200 Nicotine dependence, unspecified, uncomplicated
CPT/HCPCS: 78452; 93017; 93018; 93306; A9502; J2785

== ENCOUNTER 2025-06-04 08:58 | Outpatient (CLI) | payer MEDICARE, SELFPAY ==
--- OUTSIDE RECORDS SUMMARY | 2015-05-21 07:00 | XMS_ITS | Encounter Summary ---
Author Organization [place] [address] Care Team Providers Care Apartment Maintenance Technician Name Role Phone Lai Rosa MD Primary Care Provider Un available Encounter Details Date Type Department Care Team (Latest Contact Info) Description 05/21/2015 8:00 AM EDT Hospital Encounter GRT XRAY [address] [place], [place] [id number] Lai Rosa MD Left without seen Social History Tobacco Use Types Packs/Day Years Used Date Smoking Tobacco: Never Smokeless Tobacco: Never Alcohol Use Standard Drinks/Week Comments Yes 0 (1 standard drink = 0.6 oz pur e alcohol) occ PHQ-2 Answer Date Recorded PHQ-2 Total Score 0 11/02/2024 Sex and Gender Information Value Date Recorded Sex Assigned at Not on file Legal Sex Male 4:41 AM EDT Gender Identity Not on file Sexual Orientation Not on file COVID-19 Exposure Response Date Recorded In the last 10 days, have yo u been in contact with someone who was confirmed or suspected to have Coronavirus/COVID-19? No / Unsure 08/09/2022 1:16 PM EST documented as of this encounter Functional Status * Cognitive and Functional Status Question Answer Date of Assessment Author Is the person deaf or does h e/she have serious difficulty hearing? No 11/02/2024 8:34 AM EDT Shaun Yu RMA Is the person blind or does he/she have serious difficulty seeing even when wearing glasses? No 11/02/2024 8:34 AM EDT Shaun Mccall RMA Does this person have seriou s difficulty walking or climbing stairs? No 11/02/2024 8:34 AM EDT Shaun Mccall RMA Does this person have diffic ulty dressing or bathing? No 11/02/2024 8:34 AM EDT Shaun Mccall RMA * PHQ-9 Total Score Answer Date of Assessment Author 0 11/02/2024 8:34 AM EDT Shaun Mccall RMA * Question Answer Date of Assessment Author Little interest or pleasure in doing things 0 11/02/2024 8:34 AM EDT Shaun Mccall RMA Feeling down, depressed, or hopeless 0 11/02/2024 8:34 AM EDShaun Cruz RMA PHQ-2 Total Score 0 11/02/2024 8:34 AM EDT Shaun Mccall RMA * Question Answer Date of Assessment Author Feeling Nervous, Anxious, or on Edge 0 07/17/2023 1:27 PM Britany Villarreal CCMA Not Being Able to Stop or Control Worrying 0 07/17/2023 1:27 PM Britany Villarreal CCMA Worrying too Much About Different Things 0 07/17/2023 1:27 PM EST Britany Rosenberg CCMA Trouble Relaxing 0 07/17/2023 1:27 PM EST Jelena Grayson CCMA Being so Restless That it is Hard to Sit Still 0 07/17/2023 1:27 PM Britany Villarreal CCMA Becoming Easily Annoyed or Irritable 0 07/17/2023 1:27 PM Britany Villarreal CCMA Feeling Afraid as if Something Awful Might Happen 0 07/17/2023 1:27 PM Jelena Villarreal CCMA CHARISMA-7 Total Score 0 07/17/2023 1:27 PM Jelena Villarreal CCMA * Suicide Severity Rating Answer Date of Assessment Author No Risk 09/21/2024 7:38 PM Alexei Godfrey RN * [place] Suicide Severity Rating Scale (Q shift for moderate and high) Question Answer Date of Assessment Author 1. In the past month, have y ou wished you were or wished you could go to sleep and not wake up? 0 09/21/2024 7:38 PM Keshav Dyer RN 2. In the past month, have y ou actually had any thoughts of killing yourself? (If no, skip to question 6) 0 09/21/2024 7:38 PM Keshav Godfrey R N 6. Have you ever done anythi ng, started to do anything, or prepared to do anything to end your life? 0 09/21/2024 7:38 PM Keshav Godfrey RN documented as of this encounter Mental Status * Cognitive and Functional Status Question Answer Entry Date Author Because of a physical, menta l or emotional condition, does this person have difficulty doing errands alone such as visiting a doctor's office or shopping? No 11/02/2024 8:34 AM Shaun Solis RMA Because of a physical, menta l or emotional condition, does this person have serious difficulty concentrating, remembering or making decisions? No 11/02/2024 8:34 AM Shaun Solis RMA documented in this encounter Plan of Treatment Upcoming Encounters Date Type Department Care Team (Late st Contact Info) Description 07/01/2025 10:20 AM EST Office Visit [facility] [address] [place] [address] Rosangela Beltre MD [address] [place] [address] documented as of this encounter Goals Goal Patient Goal Type Associated Problems Recent Progress Patient-Stated? Author Maintain a healthy diet, exercise regularly and maintain an ideal body weight General No Camila Purcell LPN documented as of this encounter Visit Diagnoses Not on filedocumented in this encounter Additional Health Concerns Infection Onset Date Last Indicated Resolved Time COVID-19 07/25/2022 07/25/2022 08/14/2022 10:1 2 PM EST COVID-19 07/17/2023 07/17/2023 08/06/2023 10:1 2 PM EST documented as of this encounter Care Teams Apartment Maintenance Technician Relationship Specialty Start Date End Date Lai Rosa MD PCP - General Family Medicine 02/20/14 12/26/20 documented as of this encounter
--- OUTSIDE RECORDS SUMMARY | 2025-04-20 06:30 | XMS_ITS | Encounter Summary ---
Author Organization [place] [address] Care Team Providers Care Relations Manager Name Role Phone Yuan Cosme MD Primary Care Provider [phone] Reason for Referral * Consultation (Routine) - Authorization Not Needed Specialty Diagnoses / Procedures Referred By Contac t Referred To Contact Neurology Diagnoses Syncope and collapse Procedures [place] OFFICE/OUTPATIENT NEW MODERATE MDM 45 MINUTES Allen Mccord MD [address] [place] [address] Phone: tel: fax: Rosangela Beltre MD [address] [place] [address] Phone: tel: fax: Referral ID Status Reason Start Date Expiration Date Visits Requested Visits Authorized [id number] Authorization Not Needed 04/20/2025 04/20/2026 99 99 * EEG (Routine) - Authorization Not Needed Specialty Diagnoses / Procedures Referred By Contac t Referred To Contact Radiology Diagnoses Syncope and collapse Procedures EEG AWAKE AND ASLEEP AK ELECTROENCEPHALOGRAM W/REC AWAKE&DROWSY Allen Mccord MD [address] [place] [address] Phone: tel: fax: Referral ID Status Reason Start Date Expiration Date Visits Requested Visits Authorized [id number] Authorization Not Needed 04/20/2025 04/20/2026 1 1 * MRI/CAT Scan (Routine) - Closed Specialty Diagnoses / Procedures Referred By Marie pantoja Referred To Contact Radiology Diagnoses Syncope and collapse Procedures MRI BRAIN W WO CONTRAST Allen Mccord MD [address] [place] [address] Phone: tel: fax: Referral ID Status Reason Start Date Expiration Date Visits Re quested Visits Authorized [id number] Closed 04/20/2025 04/20/2026 1 1 * Vascular Imaging (Routine) - Closed Specialty Diagnoses / Procedures Referred By Marie pantoja Referred To Contact Radiology Diagnoses Syncope and collapse Procedures [place] US CAROTID DUPLEX BILATERAL Allen Mccord MD [address] [place] [address] Phone: tel: fax: Referral ID Status Reason Start Date Expiration Date Visits Re quested Visits Authorized [id number] Closed 04/20/2025 04/20/2027 1 1 Reason for Visit * Reason Comments Loss of Consciousness Right leg/back inj ury Encounter Details Date Type Department Care Team (Late st Contact Info) Description 04/20/2025 7:30 AM EDT Office Visit [facility] [address] [place] [address] Allen Mccord MD [address] [place] [address] Syncope and collapse (Primary Dx) Social History Tobacco Use Types Packs/Day Years [...] Sign Reading Time Taken Comments Blood Pressure 128/76 04/20/2025 7:31 AM EDT Pulse 66 04/20/2025 7:31 AM EDT Temperature - - Respiratory Rate - - Oxygen Saturation 97% 04/20/2025 7:31 AM EDT Inhaled Oxygen Concentration - - Weight 99.8 kg (220 lb) 04/20/2025 7:31 AM EDT Height 188 cm (6' 2 ) 04/20/2025 7:31 AM EDT Body Mass Index 28.25 04/20/2025 7:31 AM EDT documented in this encounter Functional [...] Solis RMA * Does this person have difficulty dressing or bathing? Answer Date of Assessment Author No 11/02/2024 8:34 AM Shaun Solis RMA * Because of a physical, mental [...] Date Author No 11/02/2024 8:34 AM EDT Cal, Shaun, RMA documented in this encounter Progress Notes * Allen Mccord MD - 04/20/2025 7:30 AM EDT Images from the original note were not included. Vitals: 04/20/25 0731 BP: 128/76 Pulse: 66 SpO2: 97% Weight: 220 lb (99.8 kg) Height: 6' 2 (1.88 m) SUBJECTIVE: Chief Complaint Patient presents with ??? Loss of Consciousness Right leg/back injury HPI: Pt passed out last Saturday and went to [facility]. Was advised to hold off on Wegovy Injured back and right leg when he fell Loss of Consciousness This is a new problem. The current episode started in the past 7 days. The problem occurs rarely. The problem has been resolved. He lost consciousness for a period of less than 1 minute. Associated symptoms include back pain. Pertinent negatives include no chest pain, dizziness, headaches, light-headedness or palpitations. There is no history of arrhythmia. Review of Systems Constitutional: Negative. HENT: Negative. Eyes: Negative. Respiratory: Negative. Cardiovascular: Positive for syncope. Negative for chest pain and palpitations. Gastrointestinal: Negative. Endocrine: Negative. Genitourinary: Negative. Musculoskeletal: Positive for arthralgias, back pain, joint swelling and myalgias. Allergic/Immunologic: Negative. Neurological: Negative for dizziness, light-headedness, numbness and headaches. Hematological: Negative. Psychiatric/Behavioral: Negative. OBJECTIVE: Physical Exam Constitutional: Appearance: Normal appearance. HENT: Head: Normocephalic. Right Ear: There is impacted cerumen. Left Ear: Tympanic membrane, ear canal and external ear normal. Nose: Nose normal. Mouth/Throat: Mouth: Mucous membranes are moist. Pharynx: Oropharynx is clear. Eyes: Pupils: Pupils are equal, round, and reactive to light. Cardiovascular: Rate and Rhythm: Regular rhythm. Heart sounds: Normal heart sounds. Pulmonary: Effort: Pulmonary effort is normal. Breath sounds: Normal breath sounds. Abdominal: General: Abdomen is flat. Palpations: Abdomen is soft. Musculoskeletal: General: Tenderness present. Cervical back: Normal range of motion. Legs: Skin: General: Skin is warm and dry. Neurological: Mental Status: He is alert and oriented to person, place, and time. Psychiatric: Mood and Affect: Mood normal. Behavior: Behavior normal. Assessment Diagnoses and all orders for this visit: Syncope and collapse - [place] US CAROTID DUPLEX BILATERAL; Future - MRI BRAIN W WO CONTRAST; Future - EEG AWAKE AND ASLEEP; Future - AMB REFERRAL TO NEUROLOGY ECHO and stress test with Cardio on saturday No follow-ups on file. documented in this encounter Plan of Treatment Upcoming Encounters Date Type Department Care Team (Late st Contact Info) Description 07/01/2025 10:20 AM EST Office Visit [facility] [address] [address] Rosangela Beltre MD [address] [place] [address] Scheduled Referrals Name Type Priority Associated Diagnoses Orde r Schedule AMB REFERRAL TO NEUROLOGY Outpatient Referral Routine Syncope and collapse Ordered: 04/20/2025 documented as of this encounter Goals Goal Patient Goal Type Associated Problems Recent Progress Patient-Stated? Author Maintain a healthy diet, exercise regularly and maintain an ideal body weight General No Camila Purcell LPN documented as of this encounter Results * MRI BRAIN W WO CONTRAST (05/10/2025 3:19 PM EDT) Anatomical Region Laterality Modality Head Magnetic Resonan ce 05/10/2025 3:19 PM EDT Impressions 05/10/2025 3:40 PM EDT No acute or enhancing abnormality. - Note: Radiology results need to be interpreted within a comprehensive clinical context. If you have questions about the radiology report, please contact the office of the ordering clinician. Narrative 05/10/2025 3:40 PM EDT MRI BRAIN W WO CONTRAST 05/10/2025 3:19 PM CLINICAL HISTORY: [id number]. COMPARISON: None. PROCEDURE COMMENTS: Multiplanar multiecho MR imaging of the brain per protocol before and following IV contrast administration. Gadolinium contrast given as recorded in Epic. FINDINGS: Midline structures normally formed. Ventricles normal. No evidence of acute stroke, mass, or hemorrhage. Diffusion imaging normal. No abnormal enhancement. Major vascular flow voids preserved, suggesting patency. Diffuse atrophy of the brain. Scattered small periventricular and subcortical white matter T2 prolongation lesions likely to be due to the chronic small vessels ischemic disease. Mild the bilateral mastoiditis. Procedure Note Chantelle Sotomayor MD - 05/10/2025 MRI BRAIN W WO CONTRAST 05/10/2025 3:19 PM CLINICAL HISTORY: [id number] and [id number]. COMPARISON: None. PROCEDURE COMMENTS: Multiplanar multiecho MR imaging of the brain perprotocol before and following IV contrast administration. Gadolinium contrast givenas recorded in Epic. FINDINGS: Midline structures normally formed. Ventricles normal. No evidence ofacute stroke, mass, or hemorrhage. Diffusion imaging normal. No abnormal enhancement. Major vascular flow voids preserved, suggesting patency.Diffuse atrophy of the brain. Scattered small periventricular and subcorticalwhite matter T2 prolongation lesions likely to be due to the chronic smallvessels ischemic disease. Mild the bilateral mastoiditis. IMPRESSION: No acute or enhancing abnormality. - Note: Radiology results need to be interpreted within a comprehensiveclinical context. If you have questions about the radiology report, please contactthe office of the ordering clinician. Allen Mccord MD IMG MRI ORDERABLES Final Result * [place] US CAROTID DUPLEX BILATERAL (04/23/2025 12:35 PM EDT) Anatomical Region Laterality Modality Vascular, Head, Neck Vascular Im aging 04/23/2025 11:5 8 AM EDT Impressions 04/23/2025 1:20 PM EDT Conclusions * There is a right proximal internal carotid artery mildly obstructive lesion noted, with an estimated 1-39% stenosis. * There is a left proximal internal carotid artery mildly obstructive lesion noted, with an estimated 1-39% stenosis. * Antegrade flow visualized in the bilateral vertebral artery. Narrative Procedure Note Matias Bowen MD - 04/23/2025 IMPRESSION Conclusions * There is a right proximal internal carotid artery mildly obstructive lesion noted, with an estimated 1-39% stenosis. * There is a left proximal internal carotid artery mildly obstructivelesion noted, with an estimated 1-39% stenosis. * Antegrade flow visualized in the bilateral vertebral artery. Allen Mccord MD IMG VASCULAR ORDERABLES Final Result * EEG AWAKE AND ASLEEP (04/23/2025 11:32 AM EDT) Anatomical Region Laterality Modality Electroencephalo graphy Narrative 04/23/2025 12:04 PM EDT REFERRING MD: Vel Mccord MD REASON FOR EEG: Cee is a 74 y.o male with syncope and collapse. Pt loss consciouness last Saturday for about a min. PmHx: Hyperlipidemia, hx of prostate cancer, Rt leg and back injury from fall, seasonal allergies CURRENT MEDICATIONS: Crestor, Wegovy, Tri-mix, Papavrn, Phntlmn TECHNICAL SUMMARY: This is a 20 channel referential and bipolar EEG recorded in a digital format in a patient who is reported to be awake and drowsy during the recording. While awake and maximally stimulated the background rhythm consisted of a well developed, well regulated low voltage activity in the 9 Hz frequency range, maximum over the posterior head regions and reactive to eye opening and closure. During the recording the patient becomes drowsy, however stage II sleep was not seen. Photic stimulation was performed and elicited a symmetric driving response. Hyperventilation was performed and elicited no abnormalities. No cardiac rhythm abnormalities were seen in the EKG monitoring channel. EEG INTERPRETATION: This EEG is within normal limits for a patient of this age in the awake and drowsy conditions. No focal, lateralizing, or epileptiform features were seen. Reading MD Lori Hannon DO Allen Mccord MD IMG EEG ORDERABLES Final Result documented in this encounter Visit Diagnoses Diagnosis Syncope and collapse- Primary Syncope and collapse Syncope and collapse Syncope and collapse documented in this encounter Additional Health Concerns Assessment Noted Time A fall risk assessment has been complete d for the patient 07/17/2023 1:28 PM EST documented as of this encounter Care Teams Relations Manager Relationship Specialty Start Date End Date Yuan Cosme MD [address] [place] [address] PCP - General Internal Medicine 12/27/20 05/03/25 documented as of this encounter
--- OUTSIDE RECORDS SUMMARY | 2025-04-23 09:00 | XMS_ITS | Encounter Summary ---
Author Organization [place] [address] Care Team Providers Care Network Design Architect Name Role Phone Yuan Cosme MD Primary Care Provider [phone] Reason for Referral * Vascular Imaging (Routine) - Closed Specialty Diagnoses / Procedures Referred By Curtisac kit Referred To Contact Radiology Diagnoses Syncope and collapse Procedures [facility] CAROTID DUPLEX BILATERAL Allen Mccord MD [address] [place] [address] Phone: tel: fax: Referral ID Status Reason Start Date Expiration Date Visits Re quested Visits Authorized [id number] Closed 04/20/2025 04/20/2027 1 1 Reason for Visit * Vascular Imaging (Routine) - Closed Specialty Diagnoses / Procedures Referred By Marie pantoja Referred To Contact Radiology Diagnoses Syncope and collapse Procedures [facility] CAROTID DUPLEX BILATERAL Allen Mccord MD [address] [place] [address] Phone: tel: fax: Referral ID Status Reason Start Date Expiration Date Visits Re quested Visits Authorized [id number] Closed 04/20/2025 04/20/2027 1 1 Encounter Details [...] at Time of Discharge papaverine-phentola min-alprost (TRI-MIX, [id number] 1,) 150 mg-5 mg- 50 mcg ICav [...] 10:20 AM EST Office Visit [facility] Neu[facility] [address] [place] [address] Rosangela Beltre MD [address] [place] [address] documented as of this encounter Goals Goal Patient Goal Type Associated Problems Recent Progress Patient-Stated? Author Maintain a healthy diet, exercise regularly and maintain an ideal body weight General No Camila Purcell LPN documented as of this encounter Procedures Procedure Name Priority Date/Time Associated Diagnosis Comments [facility] CAROTID DUPLEX BILATERAL Routine 04/23/2025 12:35 PM EDT Syncope and collapse documented in this encounter Results * [facility] CAROTID DUPLEX BILATERAL (04/23/2025 12:35 [...] documented as of this encounter Care Teams Network Design Architect Relationship Specialty Start Date End Date Yuan Cosme MD [address] [place] [address] PCP - General Internal Medicine 12/27/20 05/03/25 documented as of this encounter
--- OUTSIDE RECORDS SUMMARY | 2025-04-23 09:00 | XMS_ITS | Encounter Summary ---
Author Organization [place] [address] Care Team Providers Care Industrial Hygenist Name Role Phone Yuan Cosme MD Primary Care Provider [phone] Reason for Referral * EEG (Routine) - Authorization Not Needed Specialty Diagnoses / Procedures Referred By Contac t Referred To Contact Radiology Diagnoses Syncope and collapse Procedures EEG AWAKE AND ASLEEP MD ELECTROENCEPHALOGRAM W/REC AWAKE&DROWSY Allen Mccord MD [address] [place] [address] Phone: tel: fax: Referral ID Status Reason Start Date Expiration Date Visits Requested Visits Authorized [id number] Authorization Not Needed 04/20/2025 04/20/2026 1 1 Reason for Visit * EEG (Routine) - Authorization Not Needed Specialty Diagnoses / Procedures Referred By Marie pantoja Referred To Contact Radiology Diagnoses Syncope and collapse Procedures EEG AWAKE AND ASLEEP MD ELECTROENCEPHALOGRAM W/REC AWAKE&DROWSY Allen Mccord MD [address] [place] [address] Phone: tel: fax: Referral ID Status Reason Start Date Expiration Date Visits Requested Visits Authorized [id number] Authorization Not Needed 04/20/2025 04/20/2026 1 1 Encounter Details Date Type Department Care Team (Latest Contact Info) Description 04/23/2025 10:00 AM EDT Hospital Encounter [facility] [address] [place] [address] Allen Mccord MD [address] [place] [address] Syncope and collapse Discharge [...] Cal, Shaun, RMA documented in this encounter Medications at Time of Discharge papaverine-phentola min-alprost (TRI-MIX, [id number] 1,) 150 mg-5 mg- 50 mcg ICav Recon SolnIndications:Pro state cancer (HCC) 0.2-0.5 mL by Intracavernosal route. 4 rosuvastatin (CRESTOR) 20 mg Oral TabletIndications:H yperlipidemia, unspecified hyperlipidemia type Take 1 Tablet by mouth nightly. 90 Tablet 1 5 WEGOVY 1.7 mg/0.75 mL SubQ Pen InjectorIndications :Obesity, Class I, BMI 30-34.9 INJECT 1.7 MG UNDER THE SKIN ONCE WEEKLY 3 mL 5 05/04/20 25 documented as of this encounter Discharge Disposition Disposition Code Departure Means Destination Home or Self Care documented in this encounter Plan of Treatment Upcoming Encounters Date Type Department Care Team (Late st Contact Info) Description 07/01/2025 10:20 AM EST Office Visit [facility] Neurology [facility] [address] [place] [address] Rosangela Beltre MD [address] [place] [address] documented as of this encounter Goals Goal Patient Goal Type Associated Problems Recent Progress Patient-Stated? Author Maintain a healthy diet, exercise regularly and maintain an ideal body weight General No Camila Purcell LPN documented as of this encounter Procedures Procedure Name Priority Date/Time Associated Diagnosis Comments EEG AWAKE AND ASLEEP Routine 04/23/2025 11:32 AM EDT Syncope and collapse documented in this encounter Results * EEG AWAKE AND ASLEEP (04/23/2025 11:32 [...] documented as of this encounter Care Teams Industrial Hygenist Relationship Specialty Start Date End Date Yuan Cosme MD [address] [place] [address] PCP - General Internal Medicine 12/27/20 05/03/25 documented as of this encounter
--- OUTSIDE RECORDS SUMMARY | 2025-05-10 13:41 | XMS_ITS | Encounter Summary ---
Author Organization [place] [address] Care Team Providers Care Marine Machinist Name Role Phone Allen Mccord MD Primary Care Provider + Reason for Referral * MRI/CAT Scan (Routine) - Closed Specialty Diagnoses / Procedures Referred By Marie pantoja Referred To Contact Radiology Diagnoses Syncope and collapse Procedures MRI BRAIN W WO CONTRAST Allen Mccord MD [address] [place] [address] Phone: tel: fax: Referral ID Status Reason Start Date Expiration Date Visits Re quested Visits Authorized [id number] Closed 04/20/2025 04/20/2026 1 1 Reason for Visit * MRI/CAT Scan (Routine) - Closed Specialty Diagnoses / Procedures Referred By Marie pantoja Referred To Contact Radiology Diagnoses Syncope and collapse Procedures MRI BRAIN W WO CONTRAST Allen Mccord MD [address] [place] [address] Phone: tel: fax: Referral ID Status Reason Start Date Expiration Date Visits Re quested Visits Authorized [id number] Closed 04/20/2025 04/20/2026 1 1 Encounter Details Date Type Department Care Team (Latest Contact Info) Description 05/10/2025 2:41 PM EDT - 05/10/2025 11:59 PM EDT Hospital Encounter [facility] [address] [address] Allen Mccord MD [address] [...] at Time of Discharge papaverine-phentola min-alprost (TRI-MIX, [id number] 1,) 150 mg-5 mg- 50 mcg ICav [...] EST Office Visit [facility]rology [facility] [address] [place] [address] Rosangela Beltre MD [address] [place] [address] documented as [...] WO CONTRAST 05/10/2025 3:19 PM CLINICAL HISTORY: [id number] and [id number]. COMPARISON: None. PROCEDURE COMMENTS: Multiplanar multiecho MR [...] WO CONTRAST 05/10/2025 3:19 PM CLINICAL HISTORY: [id number] and [id number]. COMPARISON: None. PROCEDURE COMMENTS: Multiplanar multiecho MR [...] of the ordering clinician. Allen Mccord MD [facility] [place] Final Result documented in this [...] documented as of this encounter Care Teams Marine Machinist Relationship Specialty Start Date End Date Allen Mccord MD [address] [place] [address] PCP - General Family Medicine 05/04/25 documented as of this encounter
--- OUTSIDE RECORDS SUMMARY | 2025-06-04 09:07 | XMS_ITS | Encounter Summary ---
Author Organization [facility] [place] [address] Care Team Providers Care Turner Splitter Machine Operator Name Role Phone uYan Cosme MD Primary Care Provider [phone] Allen Mccord MD Primary Care Provider + Encounter Details Date Type Department Care Team (Latest Contact Info) Description 03/09/2025 Results Follow-Up [facility] [address] [place] [address] Yuan Cosme MD [address] [place] [address] LIPID SCREEN, COMPREHENSIVE METABOLIC PANEL Social [...] EDShaun Cruz RMA documented in this encounter Plan of Treatment Upcoming Encounters Date Type Department Care Team (Late st Contact Info) Description 07/01/2025 10:20 AM EST Office Visit SE[facility] Neurology [facility] [address] [place] [address] Rosangela Beltre MD [address] [place] [address] documented as of this encounter Goals Goal [...] documented as of this encounter Care Teams Turner Splitter Machine Operator Relationship Specialty Start Date End Date Yuan Cosme MD [address] [place] [phone] PCP - General Internal Medicine 12/27/20 05/03/25 Allen Mccord MD [address] [place] [address] PCP - General Family Medicine 05/04/25 documented as of this encounter
--- OUTSIDE RECORDS SUMMARY | 2025-06-04 09:07 | XMS_ITS | Encounter Summary ---
Author Organization [place] [address] Care Team Providers Care Steel Pourer Helper Name Role Phone Yuan Cosme MD Primary Care Provider [phone] Reason for Visit * Reason Comments Medication Refill Encounter Details Date Type Department Care Team (Late st Contact Info) Description 04/21/2025 Refill [facility] [address] [place] [address] Yuan Cosme MD [address] [place] [address] Medication Refill Social History Tobacco [...] Author No 11/02/2024 8:34 AM Shaun Solis AMANDA * Does this person have difficulty dressing or bathing? Answer Date of Assessment Author No 11/02/2024 8:34 AM MARCELINO Greg MccallAMANDA chambers * Because of a physical, mental or emotional condition, does this person have difficulty doing errands alone such as visiting a doctor's office or shopping? Answer Date of Assessment Author No 11/02/2024 8:34 AM MARCELINO ZhouCalShaun RMA documented as of this encounter Mental Status * Because of a physical, mental or emotional condition, does this person have serious difficulty concentrating, remembering or making decisions? Answer Entry Date Author No 11/02/2024 8:34 AM Shaun Solis AMANDA documented in this encounter Ordered Prescriptions Prescription Sig Dispense Quantity Refills Last Filled Start Date End Date WEGOVY 1.7 mg/0.75 mL SubQ Pen InjectorIndication s:Obesity, Class I, BMI 30-34.9 INJECT 1.7 MG UNDER THE SKIN ONCE WEEKLY 3 mL 04/22/2025 05/04/2025 documented in this encounter Plan of Treatment Upcoming Encounters Date Type Department Care Team (Late st Contact Info) Description 07/01/2025 10:20 AM EST Office Visit [facility] Neurology [facility] [address] [place] [address] Rosangela Beltre MD [address] [place] [address] documented as of this encounter Goals [...] documented as of this encounter Care Teams Steel Pourer Helper Relationship Specialty Start Date End Date Yuan Cosme MD [address] [place] [address] PCP - General Internal Medicine 12/27/20 05/03/25 documented as of this encounter
--- OUTSIDE RECORDS SUMMARY | 2025-06-04 09:07 | XMS_ITS | Encounter Summary ---
Author Organization [place] [address] Care Team Providers Care Matchbook Maker Name Role Phone Allen Mccord MD Primary Care Provider + Encounter Details Date Type Department Care Team (Late st Contact Info) Description 05/04/2025 Orders Only [facility] [address] [place] [address] Yuan Cosme MD [address] [place] [address] Hives (Primary Dx) Social History Tobacco Use Types [...] 10:20 AM EST Office Visit [facility] Neurology [facility] [address] [place] [address] Rosangela Beltre MD [address] [place] [address] documented as of this encounter Goals Goal Patient Goal Type Associated Problems Recent Progress Patient-Stated? Author Maintain a healthy diet, exercise regularly and maintain an ideal body weight General No Camila Purcell LPN documented as of this encounter Visit Diagnoses Diagnosis Hives- Primary Urticaria, unspecified documented in this encounter Discontinued Medications Medication Sig Discontinue Reason Start Date End Da te WEGOVY 1.7 mg/0.75 mL SubQ Pen InjectorIndications:Obes ity, Class I, BMI 30-34.9 INJECT 1.7 MG UNDER THE SKIN ONCE WEEKLY Cancelled by 04/22/2025 05/04/2025 documented as of this encounter Additional Health Concerns Assessment Noted Time A fall risk assessment has been complete d for the patient 07/17/2023 1:28 PM EST documented as of this encounter Care Teams Matchbook Maker Relationship Specialty Start Date End Date Allen Mccord MD [address] [place] [phone] PCP - General Family Medicine 05/04/25 documented as of this encounter
--- OUTSIDE RECORDS SUMMARY | 2025-06-04 09:07 | XMS_ITS | Clinical Summary ---
Author Organization [facility] Address [address], [address] [place] [address] Care Team Providers Care Patient Admitting Clerk Name Role Phone Lai Rosa MD Primary Care Provider Un available Social History Tobacco Use Types Packs/Day Years Used Date Smoking Tobacco: Never Assessed Sex and Gender Information Value Date Recorded Sex Assigned at Not on file Legal Sex Male 11:49 AM EDT Gender Identity Not on file Sexual Orientation Not on file Plan of Treatment Not on file Insurance Care Teams Patient Admitting Clerk Relationship Specialty Start Date End Date Lai Rosa MD PCP - General 05/25/16
--- OUTSIDE RECORDS SUMMARY | 2025-06-04 09:07 | XMS_ITS | Clinical Summary ---
Author Organization [facility] Address [address] [place] [address] Phone Care Team Providers Care Twister Frame Tender Name Role Phone Allen Mccord MD Primary Care Provider + Allergies No known active allergies Medications papaverine-phento robin-alprost (TRI-MIX, FZSLFGX-[id number]-R GE1,) 150 mg-5 mg- 50 mcg ICav Recon SolnIndications:P rostate cancer (HCC) 0.2-0.5 mL by Intracavernosal route. 03/10/20 24 Active rosuvastatin (CRESTOR) 20 mg Oral TabletIndications :Hyperlipidemia, unspecified hyperlipidemia type Take 1 Tablet by mouth nightly. 90 Tablet 1 03/09/20 25 Active amoxicillin-clavu lanate (AUGMENTIN) 875-125 mg Oral Tablet Take 1 Tablet by mouth 2 times daily for 10 days. 20 Tablet 05/11/20 25 2024 Active Problems Patient Care Coordination No te [...] Encounters Date Type Department Care Team Description 05/11/2025 Orders Only [facility] [address] [place] [address] Allen Mccord MD 05/10/2025 2:41 PM EDT - 05/10/2025 11:59 PM EDT Hospital Encounter [facility] MRI [address] [place] [address] Allen Mccord MD Syncope and collapse Discharge Disposition: Home or Self Care 05/04/2025 Orders Only [facility] [address] [place] [address] Yuan Cosme MD Hives (Primary Dx) 05/04/2025 Telephone [facility] [address] [place] [address] Yuan Cosme MD Medication Management 04/23/2025 10:00 AM EDT - 04/23/2025 11:59 PM EDT Hospital Encounter [facility] [address] [place] [address] Allen Mccord MD Syncope and collapse Discharge Disposition: Home or Self Care 04/23/2025 10:00 AM EDT Hospital Encounter [facility] [address] [place] [address] Allen Mccord MD Syncope and collapse Discharge Disposition: Home or Self Care 04/23/2025 Results Follow-Up [facility] [address] [place] [address] Allen Mccord MD EEG AWAKE AND ASLEEP, [place] US CAROTID DUPLEX BILATERAL, MRI BRAIN W WO CONTRAST 04/21/2025 Refill [facility] [address], [place] [address] Yuan Cosme MD Medication Refill 04/20/2025 7:30 AM EDT Office Visit [facility] [address] [place] [address] Allen Mccord MD Syncope and collapse (Primary Dx) 03/22/2025 Telephone [facility] [address] [place], [place] [address] Yuan Cosme MD Refill (wegovy-not pended) 03/09/2025 8:00 AM EDT - 03/09/2025 11:59 PM EDT Hospital Encounter [facility] [address] [place] [address] Hyperlipidemia, unspecified hyperlipidemia type Discharge Disposition: Home or Self Care 03/09/2025 7:50 AM EDT Office Visit [facility] [address] [place], [place] [address] Allen Mccord MD Hyperlipidemia, unspecified hyperlipidemia type (Primary Dx); History of prostate cancer; Seasonal allergies 03/09/2025 Results Follow-Up [facility] [address] [place] [address] Yuan Cosme MD LIPID SCREEN, COMPREHENSIVE METABOLIC PANEL from Last 3 Months Immunizations Immunization Administration Dates Next Due Influenza Vaccine, Unspecified Formulation 05/13 Pfizer SARS-CoV-2 Bivalent B ooster Vaccine 12+ Years ([place]) 08/22/2022 Pneumococcal Conjugate Vaccine 13 Valent 019 Pneumococcal Polysaccharide 23 Valent 09/02/2019 Tdap 01/03/2016,02/19/2008 Zoster 01/09/2013 Zoster Recombinant 05/13/2019,11/20/2018 Surgical History Surgery Date Site/Laterality Comments PROSTATE SURGERY COLONOSCOPY SHOULDER ARTHROSCOPY 07/11/2015 Shoulder/Left LEFT SHOULDER ARTHROSCOPY ROTATOR CUFF REPAIR ARTHROSCOPIC SUBACROMIAL DECOMPRESSION REDDING ; Surgeon: Danny Beltre MD; Location: [facility]; Service: Orthopedics Medical devices from this surgery are in the Medical Devices section. ANKLE SURGERY 12/26/2017 Ankle/Left LEFT ANKLE DISTAL TIBIA FRACTURE OPEN REDUCTION INTERNAL FIXATION ; Surgeon: Jack Buck MD; Location: [facility]; Service: Orthopedics Medical devices from this surgery [...] 10:20 AM EST Office Visit [facility] [address] [place] [address] Rosangela Beltre MD [address] [place] [address] Health Maintenance Due Date Last Done [...] Purcell LPN Medical Devices Implanted Type Area Judge'S Clerk Device Identifier Shelf Expiration Date Model / Serial / Lot [place] Y-Knot Rc - [id number] Implanted:Qty: 1 on 07/11/2015 by Danny Beltre MD at [facility] Left: Shoulder CONMED:LINVATEC [id number] 04/27/2020 YR03 / / [id number] [place] 4.5mm - [id number] Implanted:Qty: 1 on 07/11/2015 by Danny Beltre MD at [facility] Left: Shoulder CONMED:LINVATEC [id number] 05/14/2020 CK-4500 / / [id number] [place] 4.5mm - [id number] Implanted:Qty: 1 on 07/11/2015 by Danny Beltre MD at [facility] Left: Shoulder CONMED:LINVATEC [id number] 05/14/2020 CK-4500 / / [id number] Plate Bn Axsos 3 Ti L227 Mm Tibia Left Distal Medial 14hole - [id number] Implanted:Qty: 1 on 12/26/2017 by Jack Buck MD at [facility] Left: Ankle MARIA TERESA:ORTHOPE DICS [id number] / / Plate Tubular One-Third 8hole/L95mm - [id number] Implanted:Qty: 1 on 12/26/2017 by Jack Buck MD at [facility] Left: Ankle MARIA TERESA:ORTHOPE DICS [id number] / / Screw Bone Full Thread T10 2.6zilw51nk - [id number] Implanted:Qty: 1 on 12/26/2017 by Jack Buck MD at [facility] Left: Ankle MARIA TERESA:ORTHOPE DICS [id number] / / Screw Bone Full Thread T10 3.5mm X L16mm - [id number] Implanted:Qty: 2 on 12/26/2017 by Jack Buck MD at [facility] Left: Ankle MARIA TERESA:ORTHOPE DICS [id number] / / Screw Bone T10 Full Thread 3.5mm/L18mm - [id number] Implanted:Qty: 2 on 12/26/2017 by Jack Buck MD at [facility] Left: Ankle MARIA TERESA:ORTHOPE DICS [id number] / / Screw Locking Full Thread T10 3.5mm X L18mm - [id number] Implanted:Qty: 1 on 12/26/2017 at [facility] Left: Ankle MARIA TERESA:ORTHOPE DICS [id number] / / Screw Locking Full Thread T10 3.5mm X L16mm - [id number] Implanted:Qty: 1 on 12/26/2017 at [facility] Left: Ankle MARIA TERESA:ORTHOPE DICS [id number] / / Screw Cortex Ti 3.5mm X 30mm - [id number] Implanted:Qty: 4 on 12/26/2017 by Jack Buck MD at [facility] Left: Ankle MARIA TERESA:ORTHOPE DICS [id number] / / Screw Cortex Ti 3.5mm X 40mm - [id number] Implanted:Qty: 1 on 12/26/2017 by Jack Buck MD at [facility] Left: Ankle MARIA TERESA:ORTHOPE DICS [id number] / / Screw Cortex Ti 3.5x28mm - [id number] Implanted:Qty: 1 on 12/26/2017 by Jack Buck MD at [facility] Left: Ankle MARIA TERESA:ORTHOPE DICS [id number] / / Screw Locking 4.0mm X L44mm - [id number] Implanted:Qty: 2 on 12/26/2017 by Jack Buck MD at [facility] Left: Ankle MARIA TERESA:ORTHOPE DICS [id number] / / Screw Locking 4.0mm X L40mm - [id number] Implanted:Qty: 1 on 12/26/2017 by Jack Buck MD at [facility] Left: Ankle AMRIA TERESA:ORTHOPE DICS [id number] / / Screw Cancellous Ti 4.0 X L48mm Full Thread - [id number] Implanted:Qty: 1 on 12/26/2017 by Jack Buck MD at [facility] Left: Ankle MARIA TERESA:ORTHOPE DICS [id number] / / Procedures Procedure Name Priority Date/Time Associated Diagnosis Comments MRI BRAIN W WO CONTRAST Routine 05/10/2025 3:19 PM EDT Syncope and collapse [facility] US CAROTID DUPLEX BILATERAL Routine 04/23/2025 12:35 [...] Recently Relevant to Health Maintenance Results * MRI BRAIN W WO CONTRAST [...] WO CONTRAST 05/10/2025 3:19 PM CLINICAL HISTORY: [id number] and [id number]. COMPARISON: None. PROCEDURE COMMENTS: Multiplanar multiecho MR [...] WO CONTRAST 05/10/2025 3:19 PM CLINICAL HISTORY: N66-Abitsit and [id number]. COMPARISON: None. PROCEDURE COMMENTS: Multiplanar multiecho MR [...] of the ordering clinician. Allen Mccord MD [facility] [place] ORDERABLES Final Result * [place] US CAROTID DUPLEX BILATERAL (04/23/2025 12:35 PM [...] flow visualized in the bilateral vertebral artery. Result [facility] Allen Mccord MD [facility] [place]ULAR ORDERABLES Final Result * EEG AWAKE [...] <200 mg/dL 03/09/2025 3:31 PM EDT [facility] Comment: < 200 Desirable 200 - 239 Borderline High >= 240 High Triglyceride 43 <150 mg/dL 03/09/2025 3:31 PM EDT [facility] Comment: < 150 Normal 150 - 199 Borderline High 200 - 499 High >= 500 Very High HDL 60 >=40 mg/dL 03/09/2025 3:31 PM EDT [facility] Comment: > 60 Optimal 40 - 60 Acceptable < 40 Low LDL Calculated 74 <100 mg/dL 03/09/2025 3:31 PM EDT [facility] Comment: < 100 Optimal 100 - 129 [...] 025 3:31 PM EDT [facility] Blood VENOUS BLOOD / Unknown Venipuncture / Unknown 03/09/2025 8:01 AM EDT 03/09/2025 8:01 AM EDT us Allen Mccord MD CHEMISTRY ORDERABLES Fin al Result [facility] [address] [facility] , [place] [address] * COMPREHENSIVE METABOLIC PANEL (03/09/2025 8:01 AM [...] 03/09/2025 3:31 PM EDT [facility] Total Protein 7.1 6.4 - 8.3 gm/dL [...] recommended by the National Kidney Foundation - Citizen Of The [place] Society of Nephrology Task Force. Blood VENOUS BLOOD / Unknown Venipuncture / Unknown 03/09/2025 8:01 AM EDT 03/09/2025 8:01 AM EDT Allen Mccord MD CHEMISTRY ORDERABLES Fin al Result [facility] [address] [facility] , [place] [address] * GMED COLONOSCOPY (10/16/2021 12:40 PM EDT) 10/16/2021 12:4 0 PM EDT Impressions [facility] - 10/16/2021 1:16 PM EDT Diverticulosis [...] Stiles MD GI PROCEDURE ORDERABLES Final Result [facility] [address] [place] [address] * HEPATITIS C ANTIBODY - SCREENING (08/19/2018 1:26 PM EST) Hep C Ab Non-Reactiv e Non-Reacti ve 08/19/2018 8:06 PM EST [facility] Blood VENOUS BLOOD / Unknown Venipuncture / Unknown 08/19/2018 1:26 PM EST 08/19/2018 1:27 PM EST us Lai Rosa MD HEMATOLOGY ORDERABLES Fin al Result Performing Organization Address City/[facility]/ZIP Co de Phone Number [email or web address] [address] [place] [address] DR, [place] [address] from Last 3 Months or Most Recently Relevant to Health Maintenance Insurance JODY SOMERS MR JODY SOMERS MR JODY SOMERS MR Advance Directives For more information, please contact: [phone] * Full Code (Latest Code Status on File) Date Activated Date Inactivated Comments 09/08/2015 11:27 AM 09/08/2015 4:20 PM * Full Code Date Activated Date Inactivated Comments 07/11/2015 9:59 AM 07/11/2015 2:40 PM Care Teams Twister Frame Tender Relationship Specialty Start Date End Date Allen Mccord MD [address] [place] [address] PCP - General Family Medicine 05/04/25
--- OUTSIDE RECORDS SUMMARY | 2025-06-04 09:07 | XMS_ITS | Encounter Summary ---
Author Organization [place] [address] [place] [address] Care Team Providers Care Coat Joiner Name Role Phone Allen Mccord MD Primary Care Provider + Reason for Visit * Reason Onset Date Comments Medication Management 05/04/2025 Encounter Details Date Type Department Care Team (Late Contact Info) Description 05/04/2025 Telephone [facility] [address] [place] [address] Yuan Cosme MD [address] [place] [address] Medication Management Social History Tobacco Use Types Packs/Day Years [...] encounter Miscellaneous Notes * Telephone Encounter - Belinda Wilkins MA - 05/04/2025 4:49 PM EDT Spoke with pt directly and advised pt of message. Message was suppose to be sent to Dr. Tapia not Carmelina. Pt states that he doesn't see Dr. Cosme at this time. Changed PCP for pt and spoke with Dr. Tapia and his nurse about message. They agreed as well to stop medication at this time. If rash spreads or develops shortness of breath pt needs to go to the ER. If rash does spread pt needs to follow back up in office on with . Patient voiced understanding. * Telephone Encounter - Lorena Hemphill, JUNAID - 05/04/2025 4:[address] tapia agrees to stop medicine and to follow up if symptoms worsen * Telephone Encounter - Yuan Cosme MD - 05/04/2025 4:33 PM EDT We need to stop medication * Telephone Encounter - Brandon Peg Rachael - 05/04/2025 4:02 PM EDT Select the most appropriate reason for this telephone message: Medication Management/Problem Who is calling: Patient and Return Method of Communication: Phone Call What medication(s) do you have concerns about: Clarence Prescribing provider: Dr Crowder What are your concerns/request: Took the shot, and about an 45-630 min after, pt broke out in hives. PT reports no other changes in soaps or laundry care items. PT took 1 tab of Benadryl, OTC, was a 25 mg. By next morning, hives were gone. Still slightly itchy. No SOB during event. Pt Desired outcome: Clarification of prescription Last appointment date: 04/20/25 Pharmacy: [facility] Additional Information: N/A documented in this encounter Plan of Treatment Upcoming Encounters Date Type Department Care Team (Late st Contact Info) Description 07/01/2025 10:20 AM EST Office Visit [facility] [address] [place] [address] Rosangela Beltre MD [address] [place] [address] documented as of this encounter Goals [...] documented as of this encounter Care Teams Coat Joiner Relationship Specialty Start Date End Date Allen Mccord MD [address] [place] [id number] PCP - General Family Medicine 05/04/25 documented as of this encounter
--- OUTSIDE RECORDS SUMMARY | 2025-06-04 09:07 | XMS_ITS | Encounter Summary ---
Author Organization [place] [address] Care Team Providers Care Manufacturing Controls Engineer Name Role Phone Allen Mccord MD Primary Care Provider + Encounter Details Date Type Department Care Team (Late st Contact Info) Description 05/11/2025 Orders Only [facility] [address] [place] [address] Allen Mccord MD [address] [place] [address] Social History Tobacco Use Types Packs/Day Years [...] Cruz RMA * Does this person have serious [...] Shaun Solis RMA documented in this encounter Ordered Prescriptions Prescription Sig Dispense Quantity Refills Last Filled Start Date End Date amoxicillin-clavul anate (AUGMENTIN) 875-125 mg Oral Tablet Take 1 Tablet by mouth 2 times daily for 10 days. 20 Tablet 05/11/2025 05/21/2025 documented in this encounter Plan of Treatment Upcoming Encounters Date Type Department Care Team (Late st Contact Info) Description 07/01/2025 10:20 AM EST Office Visit [facility] [address] [place] [phone] Rosangela Beltre MD [address] [place] [address] documented as [...] documented as of this encounter Care Teams Manufacturing Controls Engineer Relationship Specialty Start Date End Date Allen Mccord MD [address] [place] [address] PCP - General Family Medicine 05/04/25 documented as of this encounter
--- OUTSIDE RECORDS SUMMARY | 2025-06-04 09:07 | XMS_ITS | Clinical Summary ---
Author Organization [facility] Address [address] [place] [address] Care Team Providers Care Pricing/Signage Team Member Name Role Phone Lai Rosa MD Primary Care Provider [phone] Allergies No known active allergies Medications Wegovy [...] dysfunction 04/04/2010 Seasonal allergies 04/04/2010 Hyperlipidemia 03/20/2010 Family History Medical History Relation Name Comments [...] Description 11/10/2025 8:10 AM EDT Office Visit [place] [facility] [address] [place] [address] Starr Bowen, HAMMERER, DNP [address] [place] [address] 02/16/2026 7:00 AM EDT Clinical Support [place] [facility] [address], [address] [place] [address] 02/16/2026 8:10 AM EDT Office Visit [place] [facility] [address] [place] [address] Starr Bowen, HAMMERER, DNP [address] [place] [address] Health Maintenance Due Date Last Done Comments [facility]-Hepatitis C Screening 1952 [facility]-Infant/Child/Adol SDOH Screenings 1952 [facility]- SDOH Screenings 1970 [facility]-Adult SDOH Screenings 1970 CT Colonography 1997 Colonoscopy 1997 FIT-DNA 1997 FIT 1997 FOBT 1997 Sigmoidoscopy 1997 [facility]-Colorectal Cancer Screening 1997 [id number] Vaccine (2024- season) 2025 08/22/2022, 07/06/2021, 10/07/2020 [facility]-Influenza Vaccine (#1) 2025 05/13/2013 [facility]Medicare Annual Wellness (AWV) 11/02/2025 11/02/2024, 03/11/2023, 03/12/2022, [...] on patient's age to complete this topic Insurance Care Teams Pricing/Signage Team Member Relationship Specialty Start Date End Date Lai Rosa MD [address] [place] [address] PCP - General 12/09/20
--- OUTSIDE RECORDS SUMMARY | 2025-06-04 09:07 | XMS_ITS | Encounter Summary ---
Author Organization [place] [address] Care Team Providers Care [employer] Assistant Manager Name Role Phone Yuan Cosme MD Primary Care Provider [phone] Allen Mccord MD Primary Care Provider + Reason for Visit * Reason Onset Date Comments Results 04/23/2025 EEG AWAKE AND LEEP / MRI BRAIN W WO CONTRAST 05/10/2509/26/25 Encounter Details Date Type Department Care Team (Late st Contact Info) Description 04/23/2025 Results Follow-Up [facility] [address] [place] [address] Allen Mccord MD [address] [place] [address] EEG AWAKE AND ASLEEP, [place] US CAROTID DUPLEX BILATERAL, MRI BRAIN W WO CONTRAST Social History Tobacco Use Types Packs/Day Years [...] Shaun Solis RMA documented in this encounter Miscellaneous Notes * Telephone Encounter - Elvia Wilkins MA - 05/11/2025 3:35 PM EDT Select the most appropriate reason for this telephone message: Patient Calling for Results Patient called for results on Imaging MRI BRAIN W WO CONTRAST Which Provider ordered the test? Allen Mccord MD Date of test: 05/10/25 Advised patient of: abnormal result. Patient Instructions/ Questions: Pt advised of Augmentin treatment and verbalized understanding. Medications Ordered/Pended (if yes, list medication): No Medications/Orders Needed (if yes, list orders): Yes Augmentin 875 twice daily 10 days Pharmacy Location Verified: Yes Pharmacy Location: [facility] [id number] [place] [address] [address] [phone] [[id number]] Other: Please put in the patient results note that patient is aware of the following results Allen Mccord MD 05/10/2025 5:19 PM EDT No acute changes in brain, mild bilateral mastoiditis-recommend Augmentin 875 twice daily 10 days Please advise pt when the following abx treatment has been sent to pharmacy. CPASFOLLOW UP NEEDED:Thank you. * Telephone Encounter - Elvia Wilkins MA [...] 10:20 AM EST Office Visit [facility] [address] [place] [address] Rosangela Beltre MD [address] [place] [address] documented as of this encounter Goals [...] documented as of this encounter Care Teams [employer] Assistant Manager Relationship Specialty Start Date End Date Yuan Cosme MD [address] [place] [address] PCP - General Internal Medicine 12/27/20 05/03/25 Allen Mccord MD [address] [place] [address] PCP - General Family Medicine 05/04/25 documented as of this encounter
[2025-06-04] MEDS: 0.9 % SODIUM CHLORIDE 50 ML VIAL IV (09:18)
[2025-06-04] MEDS: SODIUM CHLORIDE 0.9% 10ML SYR (RAD ONLY) 10 ML IV (09:18)
[2025-06-04] MEDS: IOPAMIDOL-370 (76%);100ML BOTTLE 80 ML IV (09:18)
[2025-06-04 09:34] VITALS: BMI 28.2
[2025-06-04 09:45] VITALS: BP 116/62; PULSE 67; RESP 16; TEMP 36.4; O2SAT 99
[2025-06-04 09:57] LABS: Anion Gap 9.9 mEq/L (5-15); Blood Urea Nitrogen 21 mg/dl (9-20); Calcium 8.9 mg/dl (8.4-10.2); Carbon Dioxide 26 mmol/L (22.0-30.0); Chloride 104 mmol/L (98-107); Creatinine Clearance Estimated 86 mL/min (50-200); Creatinine,Serum 1.10 mg/dl (0.66-1.25); Estimated Glomerular Filt Rate 66 ml/min (>60); GFR (African American) 80 ML/MIN (>60); Glucose 99 mg/dl (74-100); Potassium 3.9 mmoL/L (3.5-5.1); Sodium 136 mmol/L (136-145)
[2025-06-04] MEDS: 0.9 % SODIUM CHLORIDE 50 ML VIAL 10 ML IV (10:33)
[2025-06-04] MEDS: IOPAMIDOL-370 (76%);100ML BOTTLE 85 ML IV (10:33)
[2025-06-04 10:45] VITALS: BP 107/66; PULSE 57; RESP 16; TEMP 36.4; O2SAT 100
== END 2025-06-04 23:59 | disposition home or self-care (01) ==
PROVIDERS: PCP Family Medicine; Visit Provider Nurse Practitioner Family
DX: R55 Syncope and collapse (principal); R07.89 Other chest pain; I10 Essential (primary) hypertension
CPT/HCPCS: 75574; 80048; Q9967

== ENCOUNTER 2025-06-21 07:53 | Day surgery (SDC) | payer MEDICARE, SELFPAY ==
[2025-06-21] VITALS (12 sets, daily range): BP systolic 109–188; BP diastolic 62–84; PULSE 49–63; RESP 18; TEMP 36.3; O2SAT 93–99; BMI 28.5
--- NOTE | 2025-06-21 07:08 | IR_ITS ---
APPROVED REPORT Patient Location: Outpatient [facility] Returner: JUVENAL Andrade RT (R) PROCEDURES Left heart catheterization Left ventriculogram Selective coronary angiogram Intravascular ultrasound to the proximal and mid LAD Drug-eluting stent deployment to the proximal and mid LAD INDICATION Coronary artery disease, Critical coronary artery disease unable to pass the IVUS catheter for complete interrogation, Complex coronary revascularization, Abnormal CCTA, Angina pectoris Informed consent was obtained prior to the procedure. COMPLICATIONS NONE Estimated Blood Loss: LESS THAN 10 ML TECHNIQUE One percent lidocaine used to anesthetize the right anterior aspect of the wrist. The right radial artery was accessed via the Seldinger technique. A 6 Taj[place] sheath was placed in the right radial artery. 2.5 mg of Verapamil, 800 mcg of nitroglycerin, 1mg Lidocaine and 5000 U Heparin were given through the arterial sheath. The JL3 catheter was also used to perform left heart catheterization, left ventriculogram and selective coronary angiogram. At the end the diagnostic angiogram therapeutic Was administered giving a therapeutic ACT and the guide catheter was placed in left main artery followed by Choice PT extra-support wire placed distally. Intravascular ultrasound probe was advanced however could not be passed beyond the proximal segment due to extensive calcification. The true MLA was less than 4 mm??? and the area interrogated however this was tighter distally given the IVUS catheter could not pass. At this point a 3.5 x 38 mm [place] frontier stent was deployed at 14 luis reducing the stenosis. Intravascular ultrasound probe was reinserted which demonstrated the proximal portion was slightly undersized and distally there was extensive and severe plaque distal to the stenosis. Because of this a 3 mm x 38 mm [place] frontier stent was then placed distal to the for stent yet still overlapping and deployed at 16 luis. The balloon was brought back and deployed at 20 luis to post dilate and mash the 2 stents. A 3.75 x 20 mm noncompliant balloon was placed in the proximal portion of the 3.5 mm stent deployed at 20 luis to post dilate. KERLINE-3 flow was present before and after the procedure. At the end the procedure the apparatus was removed the sheath was removed and hemostasis was achieved using TR banding patient was transferred to the postop boarding in stable condition ANGIOGRAPHIC RESULTS The left main artery Normal The left anterior descending artery Has severe proximal atheromatous plaque and calcifications which extended into the midportion. There is angiographic ambiguity with stenoses ranging from 50 to 70% in the proximal segment The circumflex artery Large dominant with diffuse 10% luminal regularities The right coronary artery Nondominant normal The PEREZ ventriculogram reveals Normal 65% The left ventricular end-diastolic pressure 15 to 20 mmHg IMPRESSION Severe calcified and heavily atheromatous plaque in the proximal to mid LAD with successful stenting reducing multiple lesions to 0% with 2 contiguous drug-eluting stents Normal ejection fraction Borderline LVEDP Successful IVUS PLAN 1. Dual antiplatelet therapy 2. LDL less than 55 to be achieved with high intensity statin 3. Avoidance of tobacco products 4. Risk factor modification 5. Cardiac rehabilitation Electronically signed by : Naga Donahue MD 06/21/2025 10:10:34
[2025-06-21 08:24] LABS: Hematocrit 40.4 % (42.0-52.0); Hemoglobin 13.8 g/dL (14.1-18.0); Immature Granulocytes % 0.4 %; Mean Corpuscular HGB Conc 34.2 g/dL (31.8-35.4); Mean Corpuscular Hemoglobin 31.0 pg (27.0-31.2); Mean Corpuscular Volume 90.8 fl (80-94); Nucleated Red Blood Cells % 0 %; Platelet Count 132 K/mm3 (142-424); Red Blood Count 4.45 M/mm3 (4.60-6.20); Red Cell Distribution Width-SD 46.7 fL; White Blood Count 5.0 K/mm3 (4.8-10.8)
[2025-06-21 08:37] LABS: Anion Gap 10.6 mEq/L (5-15); Blood Urea Nitrogen 18 mg/dl (9-20); Calcium 9.4 mg/dl (8.4-10.2); Carbon Dioxide 26 mmol/L (22.0-30.0); Chloride 102 mmol/L (98-107); Creatinine Clearance Estimated 95 mL/min (50-200); Creatinine,Serum 1.00 mg/dl (0.66-1.25); Estimated Glomerular Filt Rate 73 ml/min (>60); GFR (African American) 89 ML/MIN (>60); Glucose 92 mg/dl (74-100); Potassium 4.6 mmoL/L (3.5-5.1); Sodium 134 mmol/L (136-145)
[2025-06-21] MEDS: HEPARIN 1,000 UNITS/500ML NS (CATH LAB) 3000 UNIT IV (09:03)
[2025-06-21] MEDS: NITROGLYCERIN 800MCG/8ML SYR (CATH LAB) 800 MCG IA (09:03)
[2025-06-21] MEDS: LIDOCAINE 1% 10ML MDV 10 ML IJ (09:03)
[2025-06-21] MEDS: HEPARIN 1,000 UNITS/ML 10ML VIAL (CATH LAB) 5000 UNIT IV (09:04)
[2025-06-21] MEDS: 0.9 % SODIUM CHLORIDE 500 ML 25 ML IV (09:04)
[2025-06-21] MEDS: VERAPAMIL 2.5MG/ML 2ML VIAL 2.5 MG IV (09:04)
[2025-06-21] MEDS: FENTANYL 100MCG/2ML VIAL 50 MCG IV (09:06)
[2025-06-21] MEDS: MIDAZOLAM HCL 1MG/ML 5ML VIAL 1 MG IV (09:06)
[2025-06-21 10:23] LABS: CATHL Activated Clotting Time 394 SEC (74-125)
== END 2025-06-21 13:15 | disposition home or self-care (01) ==
PROVIDERS: PCP Family Medicine; Visit Provider Internal Medicine
PROC: 4A023N7 Measurement of Cardiac Sampling and Pressure, Left Heart, Percutaneous Approach (ICD-10-PCS; CPT 93452; principal; 2025-06-21 09:15)
DX: I25.118 Atherosclerotic heart disease of native coronary artery with other forms of angina pectoris (principal); R93.1 Abnormal findings on diagnostic imaging of heart and coronary circulation; I10 Essential (primary) hypertension; I47.10 Supraventricular tachycardia, unspecified; I65.23 Occlusion and stenosis of bilateral carotid arteries; R55 Syncope and collapse; E78.2 Mixed hyperlipidemia; Z79.02 Long term (current) use of antithrombotics/antiplatelets; Z79.82 Long term (current) use of aspirin; Z79.4 Long term (current) use of insulin; Z79.899 Other long term (current) drug therapy
CPT/HCPCS: 80048; 85025; 85347; 92928; 92978; 93458; 99152; 99153; C1725; C1769; C1874; C1887; C9600; J1200; J1644; J2003; J3010; J7040; Q9967

== ENCOUNTER 2025-06-23 11:37 | Outpatient (CLI) | payer MEDICARE, SELFPAY ==
--- OUTSIDE RECORDS SUMMARY | 2015-05-21 07:00 | XMS_ITS | Encounter Summary ---
Author Organization [place] [address] Care Team Providers Care Movement Education Specialist Name Role Phone Lai Rosa MD Primary Care Provider Un available Encounter Details Date Type Department Care Team (Latest Contact Info) Description 05/21/2015 8:00 AM EDT Hospital Encounter GRT XRAY [address] [place], [place] [phone] Lai Rosa MD Left without seen Social [...] as of this encounter Functional Status * PHQ-9 Total Score Answer Date of Assessment Author 0 11/02/2024 8:34 AM EDT Sahun Mccall RMA * Question Answer Date of Assessment Author Little interest or pleasure in doing things 0 11/02/2024 8:34 AM EDT Shaun Mccall RMA Feeling down, depressed, or hopeless 0 11/02/2024 8:34 AM EDT Shaun Mccall RMA PHQ-2 Total Score 0 11/02/2024 8:34 AM EDT Shaun Mccall RMA documented as of this encounter Mental Status * Question Answer Entry Date Author Because of a physical, menta l or emotional condition, does this person have difficulty doing errands alone such as visiting a doctor's office or shopping? No 11/02/2024 8:34 AM EDT Shaun Mccall RMA Because of a physical, menta l or emotional condition, does this person have serious difficulty concentrating, remembering or making decisions? No 11/02/2024 8:34 AM EDT Shaun Mccall RMA documented in this encounter Plan of Treatment Upcoming Encounters Date Type Department Care Team (Late st Contact Info) Description 07/01/2025 10:20 AM EST Office Visit [facility] [address] [place] [id number] Rosangela Beltre MD [address] [place] [address] documented as of this encounter Goals Goal [...] documented as of this encounter Care Teams Movement Education Specialist Relationship Specialty Start Date End Date Lai Rosa MD PCP - General Family Medicine 02/20/14 12/26/20 documented as of this encounter
--- OUTSIDE RECORDS SUMMARY | 2025-04-23 09:00 | XMS_ITS | Encounter Summary ---
Author Organization [place] [address] Care Team Providers Care Investigations Director Name Role Phone Yuan Cosme MD Primary Care Provider [phone] Reason for Referral * Vascular Imaging (Routine) - Closed Specialty Diagnoses / Procedures Referred By Curtisac kit Referred To Contact Radiology Diagnoses Syncope and collapse Procedures [facility] CAROTID DUPLEX BILATERAL Allen Mccord MD [address] [place] [address] Phone: tel: fax: Referral ID Status Reason Start Date Expiration Date Visits Re quested Visits Authorized [id number] Closed 04/20/2025 04/20/2027 1 1 Reason for Visit * Vascular Imaging (Routine) - Closed Specialty Diagnoses / Procedures Referred By Marie pantoja Referred To Contact Radiology Diagnoses Syncope and collapse Procedures [facility] CAROTID DUPLEX BILATERAL Allen Mccord MD [address] [place] [address] Phone: tel: fax: Referral ID Status Reason Start Date Expiration Date Visits Re quested Visits Authorized [id number] Closed 04/20/2025 04/20/2027 1 1 Encounter Details Date Type Department Care Team (Latest Contact Info) Description 04/23/2025 10:00 AM EDT - 04/23/2025 11:59 PM EDT Hospital Encounter [facility] [address] [place] [address] Allen Mccord MD [address] [place] [address] Syncope and collapse Discharge Disposition: Home or Self Care Social [...] at Time of Discharge papaverine-phentola min-alprost (TRI-MIX, [id number] 1,) 150 mg-5 mg- 50 mcg ICav Recon SolnIndications:Pro state cancer (HCC) 0.2-0.5 mL by Intracavernosal route. 4 rosuvastatin (CRESTOR) 20 mg Oral TabletIndications:H yperlipidemia, unspecified hyperlipidemia type Take 1 Tablet by mouth nightly. 90 Tablet 1 5 WEGOVY 1.7 mg/0.75 mL SubQ Pen InjectorIndications :Obesity, Class I, BMI 30-34.9 INJECT 1.7 MG UNDER THE SKIN ONCE WEEKLY 3 mL 5 05/04/20 documented as of this encounter Discharge Disposition Disposition Code Departure Means Destination Home or Self Care documented in this encounter Plan of Treatment Upcoming Encounters Date Type Department Care Team (Late st Contact Info) Description 07/01/2025 10:20 AM EST Office Visit [facility] [address] [place] [address] Rosangela Beltre MD [address] [place] [address] documented as of this encounter Goals Goal Patient Goal Type Associated Problems Recent Progress Patient-Stated? Author Maintain a healthy diet, exercise regularly and maintain an ideal body weight General No Camila Purcell LPN documented as of this encounter Procedures Procedure Name Priority Date/Time Associated Diagnosis Comments [facility] CAROTID DUPLEX BILATERAL Routine 04/23/2025 12:35 PM EDT Syncope and collapse documented in this encounter Results * [facility] CAROTID DUPLEX BILATERAL (04/23/2025 12:35 PM EDT) [...] flow visualized in the bilateral vertebral artery. us Allen Mccord MD IMG VASCULAR ORDERABLES Final Result documented in this encounter Visit Diagnoses Diagnosis Syncope and collapse documented in this encounter Additional Health Concerns Assessment Noted Time A fall risk assessment has been complete d for the patient 07/17/2023 1:28 PM EST documented as of this encounter Care Teams Investigations Director Relationship Specialty Start Date End Date Yuan Cosme MD [address] [place] [address] PCP - General Internal Medicine 12/27/20 05/03/25 documented as of this encounter
--- OUTSIDE RECORDS SUMMARY | 2025-05-10 13:41 | XMS_ITS | Encounter Summary ---
Author Organization [place] [address] Care Team Providers Care Machine Grainer Name Role Phone Allen Mccord MD Primary Care Provider + Reason for Referral * MRI/CAT Scan (Routine) - Closed Specialty Diagnoses / Procedures Referred By Marie pantoja Referred To Contact Radiology Diagnoses Syncope and collapse Procedures MRI BRAIN W WO CONTRAST Allen Mccord MD [address] [place] [address] Phone: tel: fax: Referral ID Status Reason Start Date Expiration Date Visits Re quested Visits Authorized [id number] Closed 04/20/2025 04/20/2026 1 1 Reason for Visit * MRI/CAT Scan (Routine) - Closed Specialty Diagnoses / Procedures Referred By Marie pantoja Referred To Contact Radiology Diagnoses Syncope and collapse Procedures MRI BRAIN W WO CONTRAST Allen Mccord MD [address] [place] [address] Phone: tel: fax: Referral ID Status Reason Start Date Expiration Date Visits Re quested Visits Authorized [id number] Closed 04/20/2025 04/20/2026 1 1 Encounter Details Date Type Department Care Team (Latest Contact Info) Description 05/10/2025 2:41 PM EDT - 05/10/2025 11:59 PM EDT Hospital Encounter [facility] [address] [address] Allen Mccord MD [address] [...] at Time of Discharge papaverine-phentola min-alprost (TRI-MIX, [id number] 1,) 150 mg-5 mg- 50 mcg ICav [...] EST Office Visit [facility] Neurology [facility] [address] [place] [address] Rosangela Beltre MD [address] [place] [address] documented as of this encounter Goals [...] WO CONTRAST 05/10/2025 3:19 PM CLINICAL HISTORY: [id number] and [id number]. COMPARISON: None. PROCEDURE COMMENTS: Multiplanar multiecho MR [...] WO CONTRAST 05/10/2025 3:19 PM CLINICAL HISTORY: [id number] and [id number]. COMPARISON: None. PROCEDURE COMMENTS: Multiplanar multiecho MR [...] of the ordering clinician. Allen Mccord MD [facility] [place]LES Final Result documented in this encounter Visit Diagnoses Diagnosis Syncope and collapse documented in this encounter Administered Medications Inactive Administered Medications - up to 1 most recent administrations Medication Order MAR Action Action Date Dose Rate Site gadoterate meglumine (DOTAREM) solution 20 mL 20 mL, Intravenous, ONCE PRN, 1 dose, Starting on Sat05/10/25 at 1457, Until Sat05/10/25 at 1519, Radiology [...] documented as of this encounter Care Teams Machine Grainer Relationship Specialty Start Date End Date Allen Mccord MD [address] [place] [address] PCP - General Family Medicine 05/04/25 documented as of this encounter
--- OUTSIDE RECORDS SUMMARY | 2025-06-23 11:40 | XMS_ITS | Clinical Summary ---
Author Organization [facility] Address [address] [place] [address] Phone Care Team Providers Care Tariff Expert Name Role Phone Tom PATE, Hernan Unavailable [phone] Conditions or Problems Problem Name Problem Code Onset Date Status Entry Date Provider Comment Standard Description Annotate LUMBAR RADICULOPATH Y 705801327 (SNOMED CT) 08/04 Active 08/04 Christopher Salgado Lumbar radiculopathy BACK PAIN, LOW 095346445 (SNOMED CT) 08/04 Active 08/04 Christopher Salgado Low back pain ENCOUNTER FOR OTHER SPECIFIED SURGICAL AFTERCARE Z48.89 (ICD-10-CM ) 10/18 Active 10/18 Hubert Rowell MD Encounter for other specified surgical aftercare PREOPERATIVE EXAM 637091164 (SNOMED CT) 09/27 Active 09/28 Ericka Sanchez MA Pre-surgery evaluation HERNIATED LUMBAR DISC 844974945 (SNOMED CT) 08/07 Active 08/07 Hubert Rowell MD Prolapsed lumbar intervertebral disc OVERWEIGHT 285162676 (SNOMED CT) 08/07 Active 08/07 Neisha Bello MA Overweight Take Note of COUGH, CHRONIC 20905216 (SNOMED CT) 08/05 Active 08/05 Nel Lott MA Chronic cough NECK PAIN 33894099 (SNOMED CT) 08/05 Active 08/05 Hernan Santos NP Neck pain SPONDYLOSIS, LUMBAR 468821332 (SNOMED CT) 08/05 Active 08/05 Hernan Santos NP Lumbosacral spondylosis SPONDYLOSIS, CERVICAL M47.812 (ICD-10-CM ) 08/05 Active 08/05 Hernan Santos RENTAL SALESPERSON Spondylosis without myelopathy or radiculopathy, cervical region Medications Medication Instructions Start Date Stop Date Generic Name NDC Provider MEDROL 4 MG TBPK Take as directed : Hold all NSAIDs while using steroids methylprednisolone 74845765338 Hernan Santos NP MEDROL 4 MG TBPK as directed 08/04 METHYLPREDNISOLONE 32326798514 Hubert Rowell MD MELOXICAM TABS Non-[facility] 08/04 MELOXICAM TABS 30039708886 Neisha Bello MA SIMVASTATIN TABLET [facility] 08/04 SIMVASTATIN TABS 11332131449 Neisha Bello MA FLEXERIL 10 MG TABS 1 po tid 08/07 CYCLOBENZAPRINE HCL 24608480134 Neisha Bello MA VOLTAREN 75 MG TBEC 1 po bid 08/07 DICLOFENAC SODIUM 83183993653 Neisha Bello MA VYTORIN TABLET [facility] 08/07 EZETIMIBE-SIMVASTATI N TABS 96870161811 Neisha Bello MA VYTORIN TABLET [facility] 09/13 EZETIMIBE-SIMVASTATI N TABS 27433114281 Nel Lott MA VOLTAREN 75 MG TBEC 1 po bid 08/07 DICLOFENAC SODIUM 02052321282 Hernan Santos RENTAL SALESPERSON FLEXERIL 10 MG TABS 1 po tid 08/07 CYCLOBENZAPRINE HCL 72555975393 Hernan Santos NP Medications Administered No information [...]
--- OUTSIDE RECORDS SUMMARY | 2025-06-23 11:41 | XMS_ITS | Clinical Summary ---
Author Organization [facility] Address [address], [address] [place] [address] Care Team Providers Care Bead Flipper Name Role Phone Lai Rosa MD Primary Care Provider Un available Social History Tobacco Use Types Packs/Day Years Used Date Smoking Tobacco: Never Assessed Sex and Gender Information Value Date Recorded Sex Assigned at Not on file Legal Sex Male 11:49 AM EDT Gender Identity Not on file Sexual Orientation Not on file Plan of Treatment Not on file Insurance [address] [facility] [address] BCBS Care Teams Bead Flipper Relationship Specialty Start Date End Date Lai Rsoa MD PCP - General 05/25/16
--- OUTSIDE RECORDS SUMMARY | 2025-06-23 11:41 | XMS_ITS | Encounter Summary ---
Author Organization [place] [address] Care Team Providers Care Discharging Machine Operator Name Role Phone Yuan Cosme MD Primary Care Provider [phone] Allen Mccord MD Primary Care Provider + Encounter Details Date Type Department Care Team (Latest Contact Info) Description 03/09/2025 Results Follow-Up [facility] [address] [place] [address] Yuan Cosme MD [address] [place] [address] LIPID SCREEN, COMPREHENSIVE METABOLIC PANEL Social [...] Assessment Author No 11/02/2024 8:34 AM EDT Shanu Mccall RMA * Because of a physical, [...] 10:20 AM EST Office Visit [facility] [address] [place] [address] Rosangela Beltre MD [address] [place] [address] documented as of this encounter Goals Goal [...] documented as of this encounter Care Teams Discharging Machine Operator Relationship Specialty Start Date End Date Yuan Cosme MD [address] [place] [address] PCP - General Internal Medicine 12/27/20 05/03/25 Allen Mccord MD [address] [place] [address] PCP - General Family Medicine 05/04/25 documented as of this encounter
--- OUTSIDE RECORDS SUMMARY | 2025-06-23 11:41 | XMS_ITS | Encounter Summary ---
Author Organization [place] [address] Care Team Providers Care Rotoprinter Name Role Phone Allen Mccord MD Primary Care Provider + Encounter Details Date Type Department Care Team (Late st Contact Info) Description 05/11/2025 Orders Only [facility] [address] [place] [address] Allen Mccord MD [address] [place] [address] Social History Tobacco Use Types [...] 10:20 AM EST Office Visit [facility]rology [facility] [address] [place] [phone] Rosangela Beltre MD [address] [place] [address] documented as of this encounter Goals [...] documented as of this encounter Care Teams Rotoprinter Relationship Specialty Start Date End Date Allen Mccord MD [address] [place] [address] PCP - General Family Medicine 05/04/25 documented as of this encounter
--- OUTSIDE RECORDS SUMMARY | 2025-06-23 11:41 | XMS_ITS | Encounter Summary ---
Author Organization [facility] Address [address] [place] [address] Care Team Providers Care Swing Saw Operator Name Role Phone Lai Rosa MD Primary Care Provider [phone] Reason for Visit * Reason Onset Date Comments [facility] Clinical Concern/Question 06/23/2025 Encounter Details Date Type Department Care Team (Late st Contact Info) Description 06/23/2025 Telephone [place] [facility] [address], [address] [place] [address] Darion Hebert MD [address] [place] [address] HCN Clinical Concern/Question Social History Tobacco Use Types Packs/Day Years Used Date Smoking Tobacco: Never Passive Smoke Exposure: Never Smokeless Tobacco: Never Alcohol Use Standard [...] on file documented as of this encounter Miscellaneous Notes * Telephone Encounter - Nehal Flores - 06/23/2025 9:50 AM EST Clinical Concern/Question Reason for Call: Patient is calling he had some stents placed in his heart and they put him on somemeds and wanted to make sure if they are ok to take with the Trymex. The meds are metoprolo succer 25 mg and clopidogrel 75mg. Please call patient back with info. Thank you Best contact number: [phone] (home) Optimal time of day to reach caller: ANYTIME Additional comments/information from caller: None Note: Please do not reply to this message. Follow-up communication and further actions as a result of this message need to be communicated with the patient directly, if the patient is not active onMyChart. If the patient is active on MyChart, they will receive notification of the communication/outcome via Symplified. documented in this encounter Plan of Treatment Upcoming Encounters Date Type Department Care Team (Late st Contact Info) Description 11/10/2025 8:10 AM EDT Office Visit [facility] Urology [address], [place] [address] Starr Bowen APRN, ELIEL [address] [address] 02/16/2026 7:00 AM EDT Clinical Support [facility] [address], [address] [place] [phone] 02/16/2026 8:10 AM EDT Office Visit [facility] Urology [address], [address] [place] [phone] Starr Bowen APRN, DNP [address] [address] documented as of this encounter Visit Diagnoses Not on filedocumented in this encounter Additional Health Concerns Assessment Noted Time PHQ-9 Depression Total Score: 0 02/17/20 25 7:50 AM EDT A fall risk assessment has been complete d for the patient 02/16/2025 7:50 AM EDT A Body Mass Index follow-up plan has been documented for the patient 02/21/2025 11:22 AM EDT documented as of this encounter Care Teams Swing Saw Operator Relationship Specialty Start Date End Date Lai Rosa MD [address] [place] [address] PCP - General 12/09/20 documented as of this encounter
--- OUTSIDE RECORDS SUMMARY | 2025-06-23 11:41 | XMS_ITS | Encounter Summary ---
Author Organization [place] [address] Care Team Providers Care Recreational Director Name Role Phone Allen Mccord MD Primary Care Provider + Encounter Details Date Type Department Care Team (Late st Contact Info) Description 05/04/2025 Orders Only [facility] [address] [place] [address] Yuan Cosme MD [address] [place] [address] Hives (Primary Dx) Social History [...] 10:20 AM EST Office Visit [facility] Neu[facility] [address] [place] [address] Rosangela Beltre MD [address] [place] [address] documented as of this encounter Goals [...] documented as of this encounter Care Teams Recreational Director Relationship Specialty Start Date End Date Allen Mccord MD [address] [place] [phone] PCP - General Family Medicine 05/04/25 documented as of this encounter
--- OUTSIDE RECORDS SUMMARY | 2025-06-23 11:41 | XMS_ITS | Encounter Summary ---
Author Organization [place] [address] Care Team Providers Care Hot Room Attendant Name Role Phone Yuan Cosme MD Primary Care Provider [phone] Allen Mccord MD Primary Care Provider + Reason for Visit * Reason Onset Date Comments Results 04/23/2025 EEG AWAKE AND LEEP / MRI BRAIN W WO CONTRAST 05/10/2509/26/25 Encounter Details Date Type Department Care Team (Late st Contact Info) Description 04/23/2025 Results Follow-Up [facility] [address] [place] [address] Allen Mccord MD [address] [place] [address] EEG AWAKE AND ASLEEP, [place] US CAROTID DUPLEX BILATERAL, MRI BRAIN W [...] days Pharmacy Location Verified: Yes Pharmacy Location: [facility] [id number] [place] [address] [address] [phone] [[id number]] Other: Please put in the patient results [...] 10:20 AM EST Office Visit [facility] Neu[facility] [address] [place] [address] Rosangela Beltre MD [address] [place] [address] documented as [...] documented as of this encounter Care Teams Hot Room Attendant Relationship Specialty Start Date End Date Yuan Cosme MD [address] [place] [address] PCP - General Internal Medicine 12/27/20 05/03/25 Allen Mccord MD [address] [place] [address] PCP - General Family Medicine 05/04/25 documented as of this encounter
--- OUTSIDE RECORDS SUMMARY | 2025-06-23 11:41 | XMS_ITS | Clinical Summary ---
Author Organization [facility] Address [address] [place] [address] Phone Care Team Providers Care Propagation Manager Name Role Phone Allen Mccord MD Primary Care Provider + Allergies No known active allergies Medications papaverine-phento robin-alprost (TRI-MIX, SREAORD-AERCDEQ-Y GE1,) 150 mg-5 mg- 50 mcg ICav Recon SolnIndications:P rostate cancer (HCC) 0.2-0.5 mL by Intracavernosal route. 03/10/20 24 Active rosuvastatin (CRESTOR) 20 mg Oral TabletIndications :Hyperlipidemia, unspecified hyperlipidemia type Take 1 Tablet by mouth nightly. 90 Tablet 1 03/09/20 25 Active Active Problems Patient Care Coordination No te [...] Care Team Description 05/11/2025 Orders Only [facility] [place] [facility] [address] [place] [address] Allen Mccord MD 05/10/2025 2:41 PM EDT - 05/10/2025 11:59 PM EDT Hospital Encounter [facility] MRI [address] [place] [address] Allen Mccord MD Syncope and collapse Discharge Disposition: Home or Self Care 05/04/2025 Orders Only [facility] [place] [facility] [address] [place] [address] Yuan Cosme MD Hives (Primary Dx) 05/04/2025 Telephone [facility] [place] [facility] [address] [place] [address] Yuan Cosme MD Medication Management 04/23/2025 10:00 AM EDT - 04/23/2025 11:59 PM EDT Hospital Encounter [facility] [address] [place] [address] Allen Mccord MD Syncope and collapse Discharge Disposition: Home or Self Care 04/23/2025 10:00 AM EDT Hospital [facility] [address] [facility] [address] Allen Mccord MD Syncope and collapse Discharge Disposition: Home or Self Care 04/23/2025 Results Follow-Up [facility] [place] [facility] [address] [place] [address] Allen Mccord MD EEG AWAKE AND ASLEEP, [place] US CAROTID DUPLEX BILATERAL, MRI BRAIN W WO CONTRAST 04/21/2025 Refill [facility] [address] [place] [address] Yuan Cosme MD Medication Refill 04/20/2025 7:30 AM EDT Office Visit [facility] [address] [place] [address] Allen Mccord MD Syncope and collapse (Primary Dx) from Last 3 Months Immunizations Immunization Administration [...] ARTHROSCOPY ROTATOR CUFF REPAIR ARTHROSCOPIC SUBACROMIAL DECOMPRESSION ENDERLIN ; Surgeon: Danny Beltre MD; [facility]; Service: Orthopedics Medical devices from this surgery are in the Medical Devices section. ANKLE SURGERY 12/26/2017 Ankle/Left LEFT ANKLE DISTAL TIBIA FRACTURE OPEN REDUCTION INTERNAL FIXATION ; Surgeon: Jack Buck MD; Location: [facility]; Service: Orthopedics Medical devices from this [...] 10:20 AM EST Office Visit [facility] [address] [place] [address] Rosangela Beltre MD [address] [place] [address] Health Maintenance Due Date Last Done [...] LPN Medical Devices Implanted Type Area Assistant Laboratory Director Device Identifier Shelf Expiration Date Model / Serial / Lot Lamont Y-Knot Rc - [id number] Implanted:Qty: 1 on 07/11/2015 by Danny Belrte MD at [facility] Left: Shoulder CONMED:LINVATEC [id number] 04/27/2020 YR03 / / [id number] Lamont Poplok 4.5mm - [id number] Implanted:Qty: 1 on 07/11/2015 by Danny Beltre MD at [facility] Left: Shoulder CONMED:LINVATEC [id number] 05/14/2020 CK-4500 / / [id number] Lamont Poplok 4.5mm - [id number] Implanted:Qty: 1 on 07/11/2015 by Danny Beltre MD at [facility] Left: Shoulder CONMED:LINVATEC [id number] 05/14/2020 CK-4500 / / [id number] Plate Bn Axsos 3 Ti L227 Mm Tibia Left Distal Medial 14hole - [id number] Implanted:Qty: 1 on 12/26/2017 by Jack Buck MD at [facility] Left: Ankle MARIA TERESA:ORTHOPE DICS [id number] / / Plate Tubular One-Third 8hole/L95mm - [id number] Implanted:Qty: 1 on 12/26/2017 by Jack Buck MD at [facility] Left: Ankle MARIA TERESA:ORTHOPE DICS [id number] / / Screw Bone Full Thread T10 2.0znnn53jx - [id number] Implanted:Qty: 1 on 12/26/2017 by Jack Buck MD at [facility] Left: Ankle MARIA TERESA:ORTHOPE DICS [id number] / / Screw Bone Full Thread T10 3.5mm X L16mm - [id number] Implanted:Qty: 2 on 12/26/2017 by Jack Buck MD at [facility] Left: Ankle MARIA TERESA:ORTHOPE DICS [id number] / / Screw Bone T10 Full Thread 3.5mm/L18mm - [id number] Implanted:Qty: 2 on 12/26/2017 by Jack Buck MD at [facility] Left: Ankle MARIA TERESA:ORTHOPE DICS [id number] / / Screw Locking Full Thread T10 3.5mm X L18mm - [id number] Implanted:Qty: 1 on 12/26/2017 at [facility] Left: Ankle MARIA TERESA:ORTHOPE DICS [id number] / / Screw Locking Full Thread T10 3.5mm X L16mm - [id number] Implanted:Qty: 1 on 12/26/2017 at [facility] Left: Ankle MARIA TERESA:ORTHOPE DICS [id number] / / Screw Cortex Ti 3.5mm X 30mm - [id number] Implanted:Qty: 4 on 12/26/2017 by Jack Buck MD at [facility] Left: Ankle MARIA TERESA:ORTHOPE DICS [id number] / / Screw Cortex Ti 3.5mm X 40mm - [id number] Implanted:Qty: 1 on 12/26/2017 by Jack Buck MD at [facility] Left: Ankle MARIA TERESA:ORTHOPE DICS [id number] / / Screw Cortex Ti 3.5x28mm - [id number] Implanted:Qty: 1 on 12/26/2017 by Jack Buck MD at [facility] Left: Ankle MRAIA TERESA:ORTHOPE DICS [id number] / / Screw Locking 4.0mm X L44mm - [id number] Implanted:Qty: 2 on 12/26/2017 by Jack Buck MD at [facility] Left: Ankle MARIA TERESA:ORTHOPE DICS [id number] / / Screw Locking 4.0mm X L40mm - [id number] Implanted:Qty: 1 on 12/26/2017 by Jack Buck MD at [facility] Left: Ankle MARIA TERESA:ORTHOPE DICS [id number] / / Screw Cancellous Ti 4.0 X L48mm Full Thread - [id number] Implanted:Qty: 1 on 12/26/2017 by Jack Buck MD at [facility] Left: Ankle MARIA TERESA:ORTHOPE DICS [id number] / / Procedures Procedure Name Priority Date/Time Associated Diagnosis Comments MRI BRAIN W WO CONTRAST Routine 05/10/2025 3:19 PM EDT Syncope and collapse VA US CAROTID DUPLEX BILATERAL Routine 04/23/2025 12:35 PM EDT Syncope and collapse EEG AWAKE AND ASLEEP Routine 04/23/2025 11:32 AM EDT Syncope and collapse GMED COLONOSCOPY Routine 10/16/2021 12:4 0 PM [...] WO CONTRAST 05/10/2025 3:19 PM CLINICAL HISTORY: B69-Tydarnl and [id number]. COMPARISON: None. PROCEDURE COMMENTS: Multiplanar multiecho MR [...] WO CONTRAST 05/10/2025 3:19 PM CLINICAL HISTORY: J80-Ycrmwoa and xwukwoce-[id number]-72-CM. COMPARISON: None. PROCEDURE COMMENTS: Multiplanar multiecho MR [...] please contactthe office of the ordering clinician. Result [facility] Allen Mccord MD IMG MRI ORDERABLES Final Result * [facility] CAROTID DUPLEX [...] the bilateral vertebral artery. Allen Mccord MD [facility] VASCULAR ORDERABLES Final Result * EEG AWAKE [...] features were seen. Reading MD Lori Hannon, Allen HAY EEG ORDERABLES Final Result * GMED COLONOSCOPY (10/16/2021 12:40 PM EDT) 10/16/2021 12:4 0 PM EDT Impressions [facility] - 10/16/2021 1:16 PM EDT Diverticulosis [...] PROCEDURE ORDERABLES Final Result Performing Organization Address City/[facility]/ZIP Co de Phone Number [facility] [address] [place] [address] * HEPATITIS C ANTIBODY - SCREENING (08/19/2018 1:26 PM EST) Hep C Ab Non-Reactiv e Non-Reacti ve 08/19/2018 8:06 PM EST [employer] Blood VENOUS BLOOD / Unknown Venipuncture / Unknown 08/19/2018 1:26 PM EST 08/19/2018 1:27 PM EST us Lai Rosa MD HEMATOLOGY ORDERABLES Fin al Result [employer] [address] [facility], [place] [address] from Last 3 Months or Most Recently Relevant to Health Maintenance Insurance JODY SOMERS MR JODY SOMERS MR JODY SOMERS MR JODY SOMERS MR Advance Directives For more information, please contact: [phone] * Full Code (Latest Code Status on File) Date Activated Date Inactivated Comments 09/08/2015 11:27 AM 09/08/2015 4:20 PM * Full Code Date Activated Date Inactivated Comments 07/11/2015 9:59 AM 07/11/2015 2:40 PM Care Teams Propagation Manager Relationship Specialty Start Date End Date Allen Mccord MD [address] [place] [phone] PCP - General Family Medicine 05/04/25
--- OUTSIDE RECORDS SUMMARY | 2025-06-23 11:41 | XMS_ITS | Encounter Summary ---
Author Organization [place] [address] Care Team Providers Care Physician Asst Name Role Phone Allen Mccord MD Primary Care Provider + Reason for Visit * Reason Onset Date Comments Medication Management 05/04/2025 Encounter Details Date Type Department Care Team (Late Contact Info) Description 05/04/2025 Telephone [facility] [address] [place] [address] Yuan Cosme MD [address] [place] [address] Medication Management Social History Tobacco Use [...] Description 07/01/2025 10:20 AM EST Office Visit [facility] [place] [address] [place] [address] Rosangela Beltre MD [address] [place] [address] documented as of this encounter [...] documented as of this encounter Care Teams Physician Asst Relationship Specialty Start Date End Date Allen Mccord MD [address] [place] [phone] PCP - General Family Medicine 05/04/25 documented as of this encounter
--- OUTSIDE RECORDS SUMMARY | 2025-06-23 11:41 | XMS_ITS | Clinical Summary ---
Author Organization [facility] Address [address] [place] [address] Care Team Providers Care Hand Coremaker Name Role Phone Lai Rosa MD Primary Care Provider [phone] Allergies No known active allergies Medications Wegovy [...] Encounters Date Type Department Care Team Description 06/23/2025 Telephone [facility] [address], [address] [place] [address] Darion Hebert MD [facility] Clinical Concern/Question from Last 3 Months Family History Medical [...] Description 11/10/2025 8:10 AM EDT Office Visit [facility]rology [address], [address] [place] [address] Starr Bowen APRN, DNP [address] [facility] [place] [address] 02/16/2026 7:00 AM EDT Clinical Support [facility] [address] [place] [address] 02/16/2026 8:10 AM EDT Office Visit [facility] [address], [address] [place] [address] Starr Bowen APRN, DNP [address] [address] Health Maintenance Due Date Last Done Comments [facility]-Hepatitis C Screening 1950 [facility]-Infant/Child/Adol SDOH Screenings 1952 [facility]- SDOH Screenings 1970 [facility]-Adult SDOH Screenings 1970 CT Colonography 1997 Colonoscopy 1997 FIT-DNA 1997 FIT 1997 FOBT 1997 Sigmoidoscopy 1997 [facility]-Colorectal Cancer Screening 1997 [id number] Vaccine (2024- season) 2025 08/22/2022, 07/06/2021, 10/07/2020 [facility]-Influenza Vaccine (#1) 2025 05/13/2013 [facility]Med[facility]are Annual Wellness (AWV) 11/02/2025 11/02/2024 [facility]-DTaP,Tdap,and Td Vaccines (3 - Td or [...] to complete this topic Insurance Care Teams Hand Coremaker Relationship Specialty Start Date End Date Lai Rosa MD [address] [place] [address] PCP - General 12/09/20
[2025-06-23 12:10] LABS: Hematocrit 45.2 % (42.0-52.0); Hemoglobin 14.8 g/dL (14.1-18.0); Immature Granulocytes % 0.4 %; Mean Corpuscular HGB Conc 32.7 g/dL (31.8-35.4); Mean Corpuscular Hemoglobin 30.1 pg (27.0-31.2); Mean Corpuscular Volume 91.9 fl (80-94); Nucleated Red Blood Cells % 0 %; Platelet Count 197 K/mm3 (142-424); Red Blood Count 4.92 M/mm3 (4.60-6.20); Red Cell Distribution Width-SD 47.3 fL; White Blood Count 6.8 K/mm3 (4.8-10.8)
[2025-06-23 12:51] LABS: Chloride 100 mmol/L (98-107); Potassium 4.7 mmoL/L (3.5-5.1); Sodium 142 mmol/L (136-145)
[2025-06-23 12:54] LABS: Anion Gap 17.7 mEq/L (5-15); Blood Urea Nitrogen 16 mg/dl (9-20); Carbon Dioxide 29 mmol/L (22.0-30.0); Creatinine,Serum 1.00 mg/dl (0.66-1.25); Estimated Glomerular Filt Rate 73 ml/min (>60); GFR (African American) 89 ML/MIN (>60)
[2025-06-23 12:55] LABS: Calcium 9.5 mg/dl (8.4-10.2); Glucose 83 mg/dl (74-100)
== END 2025-06-23 23:59 | disposition home or self-care (01) ==
LOC: LAB 11:38
PROVIDERS: PCP Family Medicine; Visit Provider Internal Medicine
DX: I25.10 Atherosclerotic heart disease of native coronary artery without angina pectoris (principal)
CPT/HCPCS: 36415; 80048; 85025

== ENCOUNTER 2025-06-29 10:30 | Outpatient (CLI) | payer MEDICARE, SELFPAY ==
--- OUTSIDE RECORDS SUMMARY | 2015-05-21 07:00 | XMS_ITS | Encounter Summary ---
Author Organization [place] [address] Care Team Providers Care Tubular Stock Glass Bulb Machine Former Name Role Phone aLi Rosa MD Primary Care Provider Un available Encounter Details Date Type Department Care Team (Latest Contact Info) Description 05/21/2015 8:00 AM EDT Hospital Encounter GRT XRAY [address] [place], [place] [phone] Lai Rosa MD Left without seen Social [...] depressed, or hopeless 0 11/02/2024 8:34 AM Shaun Solis RMA PHQ-2 Total Score 0 11/02/2024 8:34 AM Shaun Solis RMA documented as of this encounter Mental Status * Question Answer Entry Date Author Because of a physical, menta l or emotional condition, does this person have difficulty doing errands alone such as visiting a doctor's office or shopping? No 11/02/2024 8:34 AM EDShaun Cruz RMA Because of a physical, menta l or emotional condition, does this person have serious difficulty concentrating, remembering or making decisions? No 11/02/2024 8:34 AM Shaun Solis RMA documented in this encounter Plan of Treatment Not on file documented as of this encounter Goals Goal [...] documented as of this encounter Care Teams Tubular Stock Glass Bulb Machine Former Relationship Specialty Start Date End Date Lai Rosa MD PCP - General Family Medicine 02/20/14 12/26/20 documented as of this encounter
--- OUTSIDE RECORDS SUMMARY | 2025-05-10 13:41 | XMS_ITS | Encounter Summary ---
Author Organization [facility] [place] [address] Care Team Providers Care Compatibility Test Engineer Name Role Phone Allen Mccord MD Primary Care Provider + Reason for Referral * MRI/CAT Scan (Routine) - Closed Specialty Diagnoses / Procedures Referred By Marie pantoja Referred To Contact Radiology Diagnoses Syncope and collapse Procedures MRI BRAIN W WO CONTRAST Allen Mccord MD [address] [place] [address] Phone: tel: fax: Referral ID Status Reason Start Date Expiration Date Visits Re quested Visits Authorized [id number] Closed 04/20/2025 04/20/2026 1 1 Reason for Visit * MRI/CAT Scan (Routine) - Closed Specialty Diagnoses / Procedures Referred By Marie pantoja Referred To Contact Radiology Diagnoses Syncope and collapse Procedures MRI BRAIN W WO CONTRAST Allen Mccord MD [address] [place] [address] Phone: tel: fax: Referral ID Status Reason Start Date Expiration Date Visits Re quested Visits Authorized [id number] Closed 04/20/2025 04/20/2026 1 1 Encounter Details Date Type Department Care Team (Latest Contact Info) Description 05/10/2025 2:41 PM EDT - 05/10/2025 11:59 PM EDT Hospital Encounter [facility] [address] [address] Allen Mccord MD [address] [place] [place] [address] Syncope and collapse Discharge Disposition: Home [...] at Time of Discharge papaverine-phentola min-alprost (TRI-MIX, [id number] 1,) 150 mg-5 mg- 50 mcg ICav Recon SolnIndications:Pro state cancer (HCC) 0.2-0.5 mL by Intracavernosal route. 4 rosuvastatin (CRESTOR) 20 mg Oral TabletIndications:H yperlipidemia, unspecified hyperlipidemia type Take 1 Tablet by mouth nightly. 90 Tablet 1 5 documented as of this encounter Discharge [...] Procedure Name Priority Date/Time Associated Diagnosis Comments MRI BRAIN W WO CONTRAST Routine 05/10/2025 3:19 PM EDT Syncope and collapse documented in this encounter Results * MRI BRAIN W [...] WO CONTRAST 05/10/2025 3:19 PM CLINICAL HISTORY: [id number] and [id number]. COMPARISON: None. PROCEDURE COMMENTS: Multiplanar multiecho MR [...] WO CONTRAST 05/10/2025 3:19 PM CLINICAL HISTORY: [id number] and [id number]. COMPARISON: None. PROCEDURE COMMENTS: Multiplanar multiecho MR [...] of the ordering clinician. Allen Mccord MD [facility] [place] Final Result documented in this encounter Visit Diagnoses Diagnosis Syncope and collapse documented in this encounter Administered Medications Inactive Administered Medications - up to 1 most recent administrations Medication Order MAR Action Action Date Dose Rate Site gadoterate meglumine (DOTAREM) solution 20 mL 20 mL, Intravenous, ONCE PRN, 1 dose, Starting on 05/10/25 at 1457, Until Sat05/10/25 at 1519, Radiology Procedure, VESICANT , MRI (Contrasts) Given 05/10/2025 3:19 PM EDT 20 mL Left Arm documented in this encounter Orders Medications Ordered That Yosef ht Not Have Been Administered Count Last Ordered Date First Ordered Date gadoterate meglumine (DOTARE M) solution 20 mL 1 05/10/2025 documented in this encounter Additional Health Concerns Assessment Noted Time A fall risk assessment has been complete d for the patient 07/17/2023 1:28 PM EST documented as of this encounter Care Teams Compatibility Test Engineer Relationship Specialty Start Date End Date Allen Mccord MD [address] [place] [address] [address] [place] [phone] PCP - General Family Medicine 05/04/25 documented as of this encounter
--- OUTSIDE RECORDS SUMMARY | 2025-06-29 10:32 | XMS_ITS | Clinical Summary ---
Author Organization [facility] Address [address] [place] [address] Phone Care Team Providers Care Marketing Database Analyst Name Role Phone Allen Mccord MD Primary Care Provider + Allergies No known active allergies Medications papaverine-phento robin-alprost (TRI-MIX, FKHMFYT-[id number]-F GE1,) 150 mg-5 mg- 50 mcg ICav [...] Care Team Description 05/11/2025 Orders Only [facility] [address] [place] [address] Allen Mccord MD 05/10/2025 2:41 PM EDT - 05/10/2025 11:59 PM EDT Hospital Encounter [facility] MRI [address] [place] [address] Allen Mccord MD Syncope and collapse Discharge Disposition: Home or Self Care 05/04/2025 Orders Only [facility] [place] [facility] [address] [place] [address] Yuan Cosme MD Hives (Primary Dx) 05/04/2025 Telephone [facility] [address] [place] [address] Yuan Cosme MD Medication Management 04/23/2025 10:00 AM EDT - 04/23/2025 11:59 PM EDT Hospital Encounter [facility] [address] [place] [address] Allen Mccord MD Syncope and collapse Discharge Disposition: Home or Self Care 04/23/2025 10:00 AM EDT Hospital [facility] [address] [facility] [address] Allen Mccord MD Syncope and collapse Discharge Disposition: Home or Self Care 04/23/2025 Results Follow-Up [facility] [address] [place] [address] Allen Mccord MD EEG AWAKE AND ASLEEP, [place] US CAROTID DUPLEX BILATERAL, MRI BRAIN W WO CONTRAST 04/21/2025 Refill [facility] [place] [facility] [address] [place] [address] Yuan Cosme MD Medication Refill 04/20/2025 7:30 AM EDT Office Visit [facility] [address] [place] [address] Allen Mccord MD Syncope and [...] ARTHROSCOPY ROTATOR CUFF REPAIR ARTHROSCOPIC SUBACROMIAL DECOMPRESSION HERNSHAW ; Surgeon: Danny Beltre MD; Location: [facility]; Service: Orthopedics Medical devices from this surgery are in the Medical Devices section. ANKLE SURGERY 12/26/2017 Ankle/Left LEFT ANKLE DISTAL TIBIA FRACTURE OPEN REDUCTION INTERNAL FIXATION ; Surgeon: Jack Buck MD; Location: [facility]; Service: Orthopedics Medical devices from [...] 04/20/2025 7:31 AM EDT Plan of Treatment Health Maintenance Due Date Last Done Comments [...] Purcell LPN Medical Devices Implanted Type Area Heater Tender Device Identifier Shelf Expiration Date Model / Serial / Lot Asotin Y-Knot Rc - [id number] Implanted:Qty: 1 on 07/11/2015 by Danny Beltre MD at [facility] Left: Shoulder CONMED:LINVATEC [id number] 04/27/2020 YR03 / / [id number] Asotin Poplok 4.5mm - [id number] Implanted:Qty: 1 on 07/11/2015 by Danny Beltre MD at [facility] Left: Shoulder CONMED:LINVATEC [id number] 05/14/2020 CKP-4500 / / [id number] Asotin Poplok 4.5mm - [id number] Implanted:Qty: 1 on 07/11/2015 by Danny Beltre MD at [facility] Left: Shoulder CONMED:LINVATEC [id number] 05/14/2020 CKP-4500 / / [id number] Plate Bn Axsos 3 Ti L227 Mm Tibia Left Distal Medial 14hole - [id number] Implanted:Qty: 1 on 12/26/2017 by Jack Buck MD at [facility] Left: Ankle MARIA TERESA:ORTHOPE DICS [id number] / / Plate Tubular One-Third 8hole/L95mm - [id number] Implanted:Qty: 1 on 12/26/2017 by Jack Buck MD at [facility] Left: Ankle MARIA TERESA:ORTHOPE DICS [id number] / / Screw Bone Full Thread T10 2.1pfwa94jo - [id number] Implanted:Qty: 1 on 12/26/2017 by Jack Buck MD at [facility] Left: Ankle MARIA TERESA:ORTHOPE DICS [id number] / / Screw Bone Full Thread T10 3.5mm X L16mm - [id number] Implanted:Qty: 2 on 12/26/2017 by Jack Buck MD at [facility] Left: Ankle MARIA TERESA:ORTHOPE DICS [id number] / / Screw Bone T10 Full Thread 3.5mm/L18mm - [id number] Implanted:Qty: 2 on 12/26/2017 by Jack Buck MD at [facility] Left: Ankle MARIA TERESA:ORTHOPE DICS [id number] / / Screw Locking Full Thread T10 3.5mm X L18mm - [id number] Implanted:Qty: 1 on 12/26/2017 at [facility] Left: Ankle MARIA TERESA:ORTHOPE DICS [id number] / / Screw Locking Full Thread T10 3.5mm X L16mm - [id number] Implanted:Qty: 1 on 12/26/2017 at [facility] Left: Ankle MARIA TERESA:ORTHOPE DICS [id number] / / Screw Cortex Ti 3.5mm X 30mm - [id number] Implanted:Qty: 4 on 12/26/2017 by Jack Buck MD at [facility] Left: Ankle MARIA TERESA:ORTHOPE DICS [id number] / / Screw Cortex Ti 3.5mm X 40mm - [id number] Implanted:Qty: 1 on 12/26/2017 by Jack Buck MD at [facility] Left: Ankle MARIA TERESA:ORTHOPE DICS [id number] / / Screw Cortex Ti 3.5x28mm - [id number] Implanted:Qty: 1 on 12/26/2017 by Jack Buck MD at [facility] Left: Ankle MARIA TERESA:ORTHOPE DICS [id number] / / Screw Locking 4.0mm X L44mm - [id number] Implanted:Qty: 2 on 12/26/2017 by Jack Buck MD at [facility] Left: Ankle MARIA TERESA:ORTHOPE DICS [id number] / / Screw Locking 4.0mm X L40mm - [id number] Implanted:Qty: 1 on 12/26/2017 by Jack Buck MD at [facility] Left: Ankle MARIA TERESA:ORTHOPE DICS [id number] / / Screw Cancellous Ti 4.0 X L48mm Full Thread - [id number] Implanted:Qty: 1 on 12/26/2017 by Jack Buck MD at [facility] Left: Ankle MARIA TERESA:ORTHOPE DICS [id number] / / Procedures Procedure Name Priority Date/Time [...] WO CONTRAST 05/10/2025 3:19 PM CLINICAL HISTORY: [id number] and [id number]. COMPARISON: None. PROCEDURE COMMENTS: Multiplanar multiecho MR [...] WO CONTRAST 05/10/2025 3:19 PM CLINICAL HISTORY: M77-Ztnbxyn and [id number]. COMPARISON: None. PROCEDURE COMMENTS: Multiplanar multiecho MR [...] of the ordering clinician. Allen Mccord MD [facility] MRI ORDERABLES Final Result * [place] US CAROTID DUPLEX BILATERAL (04/23/2025 [...] MD Lori Hannon DO Allen Mccord MD IM EEG ORDERABLES Final Result * GMED COLONOSCOPY (10/16/2021 12:40 PM EDT) 10/16/2021 12:4 0 PM EDT Impressions [facility] - 10/16/2021 1:16 PM EDT Diverticulosis [...] Stiles MD GI PROCEDURE ORDERABLES Final Result [facility] [address] [place] [address] * HEPATITIS C ANTIBODY - SCREENING (08/19/2018 1:26 PM EST) Hep C Ab Non-Reactiv e Non-Reacti ve 08/19/2018 8:06 PM EST [email or web address] Blood VENOUS BLOOD / Unknown Venipuncture / Unknown 08/19/2018 1:26 PM EST 08/19/2018 1:27 PM EST us Lai Rosa MD HEMATOLOGY ORDERABLES Fin al Result Performing Organization Address City/[facility]/ZIP Co de Phone Number [email or web address] [address] [place] [address], [place] [address] from Last 3 Months or Most Recently Relevant to Health Maintenance Insurance JODY SOMERS MR JODY SOMERS MR JODY SOMERS MR JODY SOMERS MR Advance Directives For more information, please contact: [phone] * Full Code (Latest Code Status on File) Date Activated Date Inactivated Comments 09/08/2015 11:27 AM 09/08/2015 4:20 PM * Full Code Date Activated Date Inactivated Comments 07/11/2015 9:59 AM 07/11/2015 2:40 PM Care Teams Marketing Database Analyst Relationship Specialty Start Date End Date Allen Mccord MD [address] [place] [place] [address] PCP - General Family Medicine 05/04/25
--- OUTSIDE RECORDS SUMMARY | 2025-06-29 10:32 | XMS_ITS | Encounter Summary ---
Author Organization [facility] [place] [address] [place] [address] Care Team Providers Care Assurance Officer Name Role Phone Yuan Cosme MD Primary Care Provider [phone] Allen Mccord MD Primary Care Provider + Encounter Details Date Type Department Care Team (Latest Contact Info) Description 03/09/2025 Results Follow-Up [facility] [address] [place] [address] Yuan Cosme MD [address] [place] [address] LIPID SCREEN, COMPREHENSIVE METABOLIC PANEL Social [...] documented as of this encounter Care Teams Assurance Officer Relationship Specialty Start Date End Date Yuan Cosme MD [address] [place] [address] PCP - General Internal Medicine 12/27/20 05/03/25 Allen Mccord MD [address] [place] [address] PCP - General Family Medicine 05/04/25 documented as of this encounter
--- OUTSIDE RECORDS SUMMARY | 2025-06-29 10:32 | XMS_ITS | Encounter Summary ---
Author Organization [place] [address] Care Team Providers Care Stage Manager Name Role Phone Allen Mccord MD Primary Care Provider + Encounter Details Date Type Department Care Team (Late st Contact Info) Description 05/04/2025 Orders Only [facility] [address] [place] [address] Yuan Cosme MD [address] [place] [address] Hives (Primary Dx) Social History [...] documented as of this encounter Care Teams Stage Manager Relationship Specialty Start Date End Date Allen Mccord MD [address] [place] [address] PCP - General Family Medicine 05/04/25 documented as of this encounter
--- OUTSIDE RECORDS SUMMARY | 2025-06-29 10:33 | XMS_ITS | Clinical Summary ---
Author Organization [facility] Address [address], [address] [place] [address] Care Team Providers Care Indirect Fire Infantryman Name Role Phone Lai Rosa MD Primary Care Provider Un available Social History Tobacco Use Types Packs/Day Years Used Date Smoking Tobacco: Never Assessed Sex and Gender Information Value Date Recorded Sex Assigned at Not on file Legal Sex Male 11:49 AM EDT Gender Identity Not on file Sexual Orientation Not on file Plan of Treatment Not on file Insurance Care Teams Indirect Fire Infantryman Relationship Specialty Start Date End Date Lai Rosa MD PCP - General 05/25/16
--- OUTSIDE RECORDS SUMMARY | 2025-06-29 10:33 | XMS_ITS | Clinical Summary ---
Author Organization [facility] Address [address] [place] [address] Care Team Providers Care Electrical Worker Name Role Phone Lai Rosa MD Primary Care Provider [phone] Allergies No known active allergies Medications Wegovy [...] Type Department Care Team Description 06/23/2025 Telephone [facility] [address] [place] [address] Darion Hebert MD HCN Clinical [...] Description 11/10/2025 8:10 AM EDT Office Visit [facility] [address], [address] [place] [address] Starr Bowen APRN, DNP [address] [facility] [place] [address] 02/16/2026 7:00 AM EDT Clinical Support [facility] [address] [place] [address] 02/16/2026 8:10 AM EDT Office Visit [facility] [address] [place] [address] Starr Bowen APRN, DNP [address] [address] Health Maintenance Due Date Last Done Comments [facility]-Hepatitis C Screening 1950 [facility]-/Child/Adol SDOH Screenings 1952 [facility]- SDOH Screenings 1970 [facility]-Adult SDOH Screenings 1970 CT Colonography 1997 Colonoscopy 1997 FIT-DNA 1997 FIT 1997 FOBT 1997 Sigmoidoscopy 1997 [facility]-Colorectal Cancer Screening 1997 [id number] Vaccine (2024- season) 2025 08/22/2022, 07/06/2021, 10/07/2020 [facility]-Influenza Vaccine (#1) 2025 05/13/2013 [facility]-Medicare Annual Wellness (AWV) 11/02/2025 11/02/2024 [facility]-DTaP,Tdap,and Td [...] to complete this topic Insurance Care Teams Electrical Worker Relationship Specialty Start Date End Date Lai Rosa MD [address] [place] [address] PCP - General 12/09/20
--- OUTSIDE RECORDS SUMMARY | 2025-06-29 10:33 | XMS_ITS | Encounter Summary ---
Author Organization [place] [address] Care Team Providers Care Accounting Generalist Name Role Phone Allen Mccord MD Primary Care Provider + Reason for Visit * Reason Onset Date Comments Medication Management 05/04/2025 Encounter Details Date Type Department Care Team (Late Contact Info) Description 05/04/2025 Telephone [facility] [address] [place] [address] Yuan Cosme MD [address] [place] [address] Medication Management Social History Tobacco Use [...] documented as of this encounter Care Teams Accounting Generalist Relationship Specialty Start Date End Date Allen Mccord MD [address] [place] [address] PCP - General Family Medicine 05/04/25 documented as of this encounter
--- OUTSIDE RECORDS SUMMARY | 2025-06-29 10:33 | XMS_ITS | Encounter Summary ---
Author Organization [place] [address] Care Team Providers Care Tool Die Maker Name Role Phone Allen Mccord MD Primary Care Provider + Encounter Details Date Type Department Care Team (Late st Contact Info) Description 05/11/2025 Orders Only [facility] [address] [place] [address] Allen Mccord MD [address] [place] [address] Social History Tobacco Use Types [...] Assessment Author No 11/02/2024 8:34 AM MARCELINO Cal, Shaun AMANDA * Does this person have difficulty dressing or bathing? Answer Date of Assessment Author No 11/02/2024 8:34 AM MARCELINO CalShaun RMA * Because of a physical, mental or emotional condition, does this person have difficulty doing errands alone such as visiting a doctor's office or shopping? Answer Date of Assessment Author No 11/02/2024 8:34 AM MARCELINO Shaun Mccall RMA documented as of this encounter Mental Status * Because of a physical, mental or emotional condition, does this person have serious difficulty concentrating, remembering or making decisions? Answer Entry Date Author No 11/02/2024 8:34 AM MARCELINO Cal, Shaun AMANDA documented in this encounter Ordered Prescriptions [...] documented as of this encounter Care Teams Tool Die Maker Relationship Specialty Start Date End Date Allen Mccord MD [address] [place] [address] PCP - General Family Medicine 05/04/25 documented as of this encounter
--- OUTSIDE RECORDS SUMMARY | 2025-06-29 10:33 | XMS_ITS | Encounter Summary ---
Author Organization [facility] Address [address] [place] [address] Care Team Providers Care Gas Pumping Station Helper Name Role Phone Lai Rosa MD Primary Care Provider [phone] Reason for Visit * Reason Onset Date Comments [facility]CN Clinical Concern/Question 06/23/2025 Encounter Details Date Type Department Care Team (Late st Contact Info) Description 06/23/2025 Telephone [facility] [address] [place] [address] Darion Hebert MD [address] [place] [address] [facility]CN Clinical Concern/Question Social History [...] encounter Miscellaneous Notes * Telephone Encounter - Mariaa Lamb MD - 06/23/2025 12:10 PM EST Called patient back. Notified that there were no known interactions amongst Trimix, metoprolol and clopidogrel. * Telephone Encounter - Nehal Flores - [...] with info. Thank you Best contact number: [phone] (home) Optimal time of day to reach caller: ANYTIME Additional comments/information from caller: None Note: Please do not reply to this message. Follow-up communication and further actions as a result of this message need to be communicated with the patient directly, if the patient is not active onMyChart. If the patient is active on MyChart, they will receive notification of the communication/outcome via [employer]. documented in this encounter Plan of Treatment Upcoming Encounters Date Type Department Care Team (Late st Contact Info) Description 11/10/2025 8:10 AM EDT Office Visit [facility] [address], [address] [place] [address] Starr Bowen APRN, ELIEL [address] [place] [address] 02/16/2026 7:00 AM EDT Clinical Support [facility] [address], [address] [place] [address] 02/16/2026 8:10 AM EDT Office Visit [facility] [address], [address] [place] [address] Starr Bowen APRN, DNP [address] [place] [address] documented as of this encounter Visit Diagnoses [...] documented as of this encounter Care Teams Gas Pumping Station Helper Relationship Specialty Start Date End Date Lai Rosa MD [address] [place] [address] PCP - General 12/09/20 documented as of this encounter
--- OUTSIDE RECORDS SUMMARY | 2025-06-29 10:33 | XMS_ITS | Encounter Summary ---
Author Organization [facility] [address] Care Team Providers Care Cleaning Staff Supervisor Name Role Phone Yuan Cosme MD Primary Care Provider [phone] Allen Mccord MD Primary Care Provider + Reason for Visit * Reason Onset Date Comments Results 04/23/2025 EEG AWAKE AND LEEP / MRI BRAIN W WO CONTRAST 05/10/2509/26/25 Encounter Details Date Type Department Care Team (Late st Contact Info) Description 04/23/2025 Results Follow-Up [facility] [address] [place] [address] Allen Mccord MD [address] [place] [address] EEG AWAKE AND ASLEEP, [place] US CAROTID DUPLEX BILATERAL, MRI BRAIN W [...] days Pharmacy Location Verified: Yes Pharmacy Location: [facility] [id number] [place] [address] [employer] [phone] [[id number]] Other: Please put in the patient results [...] documented as of this encounter Care Teams Cleaning Staff Supervisor Relationship Specialty Start Date End Date Yuan Cosme MD [address] [place] [address] PCP - General Internal Medicine 12/27/20 05/03/25 Allen Mccord MD [address] [place] [address] PCP - General Family Medicine 05/04/25 documented as of this encounter
[2025-06-29 12:31] LABS: Alanine Aminotransferase 27 U/L (12-78); Albumin Level 4.7 g/dl (3.5-5.0); Alkaline Phosphatase 74 U/L (38-126); Anion Gap 10.3 mEq/L (5-15); Aspartate Amino Transferase 25 U/L (17-59); Bilirubin,Direct 0.1 mg/dl (0.0-0.4); Bilirubin,Indirect 0.6 mg/dL (0.0-0.9); Bilirubin,Total 0.7 mg/dl (0.2-1.3); Bilirubin,Unconjugated 0.6 mg/dL (0.0-1.1); Blood Urea Nitrogen 21 mg/dl (9-20); Calcium 9.5 mg/dl (8.4-10.2); Carbon Dioxide 27 mmol/L (22.0-30.0); Chloride 101 mmol/L (98-107); Cholesterol 176 mg/dl (140-200); Creatinine,Serum 1.10 mg/dl (0.66-1.25); Estimated Glomerular Filt Rate 66 ml/min (>60); GFR (African American) 80 ML/MIN (>60); Glucose 91 mg/dl (74-100); HDL Cholesterol 73 mg/dl (40-60); Potassium 4.3 mmoL/L (3.5-5.1); Sodium 134 mmol/L (136-145); Total Protein,Serum 7.3 g/dl (6.3-8.2); Triglycerides 100 mg/dl (30-150)
== END 2025-06-29 23:59 | disposition home or self-care (01) ==
PROVIDERS: PCP Family Medicine; Visit Provider Nurse Practitioner Family
DX: E78.2 Mixed hyperlipidemia (principal); R55 Syncope and collapse; I10 Essential (primary) hypertension; I25.118 Atherosclerotic heart disease of native coronary artery with other forms of angina pectoris
CPT/HCPCS: 36415; 80048; 80061; 80076

== ENCOUNTER → 2025-07-15 13:00 | Outpatient (RCR) | payer MEDICARE, SELFPAY | LOC: CR 13:00 | PROVIDERS: PCP Family Medicine; Visit Provider Internal Medicine | DX: Z48.812 Encounter for surgical aftercare following surgery on the circulatory system (principal); Z95.5 Presence of coronary angioplasty implant and graft | CPT/HCPCS: 93798 ==